=== PATIENT | female | born 1980 | race Caucasian/White ===

== ENCOUNTER 2016-08-19 23:39 | Emergency (ER) | payer MEDICARE, OTHER ==
[2016-08-19 23:48] VITALS: BP 106/55; PULSE 103; RESP 18; TEMP 97.3
[2016-08-20] MEDS ORDERED: Acetaminophen-Codeine 300-30mg TAB PO STA (00:19)
[2016-08-20] MEDS ORDERED: ORPHENADRINE 30 MG/ML 2 ML VIAL IM STA (00:19)
--- NOTE | 2016-08-20 00:22 | ED ---
General Adult HPI - General Chief complaint: Extremity Problem,Nontraumatic Stated complaint: shoulder/head pain Time Seen by Provider: 08/20/16 00:14 Source: patient, RN notes reviewed Mode of arrival: ambulatory Limitations: no limitations - History of Present Illness Initial comments: 36-year-old female presents emergency Department chief complaint left sided neck shoulder pain. Patient states this started 2 days ago. She states she has a history of this when she sleeps wrong. Patient denies any trauma. Patient states she woke up with. Patient denies any upper similar weakness, paresthesias. Denies any dizziness, blurred vision, nausea vomiting. Patient states she occasionally has a headache associated with it. Patient denies fever or chills. She states she has taken some [id number] ibuprofen no relief. Patient offers no other complaints. - Related Data Home Medications Medication Instructions Recorded Confirmed LORazepam [Ativan] 1 mg PO TID 01/12/14 08/05/16 Tetracycline 1,000 mg PO DAILY 12/27/15 08/05/16 Tretinoin [Tretinoin] 1 applic TOPICAL HS 12/28/15 08/05/16 Previous Rx's Medication Instructions Recorded Benztropine Mesylate [Cogentin] 0.5 mg PO BID #60 tab 01/04/16 Citalopram Hydrobromide [CeleXA] 20 mg PO DAILY 30 Days 01/04/16 Gabapentin [Neurontin] 300 mg PO TID #90 cap 01/04/16 fluPHENAZine [Prolixin] 20 mg PO HS #60 tab 01/04/16 traZODone HCL [Desyrel] 200 mg PO HS 1 Days 01/04/16 Cephalexin [Keflex] 500 mg PO Q6HR #40 cap 08/05/16 Sulfamethox-Tmp 800-160Mg [Bactrim 1 each PO Q12HR #20 tab 08/05/16 Ds] predniSONE 40 mg PO DAILY #8 tab 08/05/16 Acetaminophen-Codeine 300-30mg 1 tab PO Q4H PRN #20 tablet 08/20/16 [Tylenol #3] Cyclobenzaprine [Flexeril] 5 mg PO TID PRN #15 tablet 08/20/16 Allergies Allergy/AdvReac Type Severity Reaction Status Date / Time [place] Allergy Swelling Uncoded 08/05/16 01:08 Review of Systems ROS Statement: Those systems with pertinent positive or pertinent negative responses have been documented in the HPI. ROS Other: All systems not noted in ROS Statement are negative. 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 History of Any Multi-Drug Resistant Organisms: None Reported Past Surgical History: Appendectomy, Uterine Ablation Past Psychological History: Bipolar, Schizoaffective Disorder, Schizophrenia Smoking Status: Current every day smoker Past Alcohol Use History: None Reported Past Drug Use History: Marijuana General Exam Limitations: no limitations General appearance: alert, in no apparent distress Head exam: Present: atraumatic, normocephalic, normal inspection Eye exam: Present: normal appearance, PERRL, EOMI. Absent: scleral icterus, conjunctival injection, periorbital swelling ENT exam: Present: normal exam, normal oropharynx, mucous membranes moist, TM's normal bilaterally Neck exam: Present: normal inspection, tenderness (Mild tenderness of left cervical paraspinous, left trapezius region there is a muscle spasm noted), full ROM. Absent: meningismus, lymphadenopathy Respiratory exam: Present: normal lung sounds bilaterally. Absent: respiratory distress, wheezes, rales, rhonchi, stridor Cardiovascular Exam: Present: regular rate, normal rhythm, normal heart sounds. Absent: systolic murmur, diastolic murmur, rubs, gallop, clicks Neurological exam: Present: alert, oriented X3, CN II-XII intact, reflexes normal. Absent: motor sensory deficit Course Vital Signs 08/19/16 23:44 Temperature 97.3 F L Pulse Rate 103 H Respiratory 18 Rate Blood Pressure 106/55 O2 Sat by Pulse 96 Oximetry Medical Decision Making - Medical Decision Making 36-year-old female presented for left sided neck pain. Patient has left trapezius muscle spasms/strain. Patient has no neurological deficits. Patient we treated with muscle relaxer, pain medication. We did discuss stretching, heat and ice. Return parameters were discussed. Disposition Clinical Impression: Trapezius muscle spasm Disposition: HOME SELF-CARE Condition: Stable Instructions: Muscle Spasm (ED) Additional Instructions: Please return to the Emergency Department if symptoms worsen or any other concerns. Prescriptions: Acetaminophen-Codeine 300-30mg [Tylenol #3] 1 tab PO Q4H PRN #20 tablet PRN Reason: pain Cyclobenzaprine [Flexeril] 5 mg PO TID PRN #15 tablet PRN Reason: Muscle Spasm Time of Disposition: 00:22
== END 2016-08-20 00:34 | disposition home or self-care (01) ==
LOC: EC 23:39
DX: M62.838 Other muscle spasm (principal); R51 Headache; F17.200 Nicotine dependence, unspecified, uncomplicated; Z79.899 Other long term (current) drug therapy; Z79.2 Long term (current) use of antibiotics; Z91.048 Other nonmedicinal substance allergy status; X58.XXXA Exposure to other specified factors, initial encounter
CPT/HCPCS: 96372; 99283; J2360

== ENCOUNTER 2016-09-08 15:03 | Emergency (ER) | payer MEDICARE, OTHER ==
--- NOTE | 2016-09-08 17:08 | ED ---
General Adult HPI - General Chief complaint: Extremity Problem,Nontraumatic Stated complaint: Shoulder Pain Time Seen by Provider: 09/08/16 16:53 Source: patient, RN notes reviewed Mode of arrival: ambulatory Limitations: no limitations - History of Present Illness Initial comments: This is a 36-year-old female who presents with left shoulder pain 1 month. Patient states she thinks she slept on it wrong and remembers waking up with the pain about one month ago. Patient denies any known injury to the left shoulder. Patient does not have a job that requires repetitive motion of the left shoulder. Patient denies any numbness/tingling or weakness. Patient also admits to some mild neck pain that has been chronic for her. Patient also complains of left foot pain. Patient states his walking on ice last week and her foot is hurt ever since. Patient did not roll her ankle or fall onto her ankle. Patient also complains of a sore in the left ear that has been present for about a month as well. patient has been on one course of antibiotics for this. Patient denies any fever/chills, ear pain, nausea/vomiting/diarrhea, cough or congestion. Patient denies any chance of being . Patient denies any recent shortness breath, chest pain, abdominal pain, back pain, numbness, tingling, hematuria, headache, or visual changes, or any other complaints. - Related Data Home Medications Medication Instructions Recorded Confirmed LORazepam [Ativan] 1 mg PO TID 01/12/14 09/08/16 Tetracycline 1,000 mg PO DAILY 12/27/15 09/08/16 Previous Rx's Medication Instructions Recorded Benztropine Mesylate [Cogentin] 0.5 mg PO BID #60 tab 01/04/16 Citalopram Hydrobromide [CeleXA] 20 mg PO DAILY 30 Days 01/04/16 Gabapentin [Neurontin] 300 mg PO TID #90 cap 01/04/16 fluPHENAZine [Prolixin] 20 mg PO HS #60 tab 01/04/16 traZODone HCL [Desyrel] 200 mg PO HS 1 Days 01/04/16 Ciprofloxacin-Dexameth [Ciprodex 4 drops LEFT EAR BID 7 Days 09/08/16 Otic Susp] Cyclobenzaprine [Flexeril] 5 mg PO TID 3 Days 09/08/16 Allergies Allergy/AdvReac Type Severity Reaction Status Date / Time sulfamethoxazole Allergy Swelling Verified 09/08/16 17:12 [From Bactrim] trimethoprim [From Bactrim] Allergy Swelling Verified 09/08/16 17:12 cottonwood Allergy Swelling Uncoded 09/08/16 16:20 Review of Systems ROS Statement: Those systems with pertinent positive or pertinent negative responses have been documented in the HPI. ROS Other: All systems not noted in ROS Statement are negative. 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 History of Any Multi-Drug Resistant Organisms: None Reported Past Surgical History: Appendectomy, Uterine Ablation Past Psychological History: Bipolar, Schizoaffective Disorder, Schizophrenia Smoking Status: Current every day smoker Past Alcohol Use History: None Reported Past Drug Use History: Marijuana General Exam - General Exam Comments Initial Comments: General: The patient is awake and alert, in no distress, and does not appear acutely ill. Eye: Pupils are equal, round and reactive to light, extra-ocular movements are intact. No nystagmus. There is normal conjunctiva bilaterally. No signs of icterus. Ears: There is a small lump to the external ear canal that is non-erythematous, there is no purulent drainage or sign of abscess. This area is slightly tender to palpation. Normal external ear canal to the right ear. TMs pink and pearly with intact cone of light bilaterally. Nose: Nasal turbinates pink and moist Mouth and throat: There are moist mucous membranes and no oral lesions. Neck: There is some mild cervical midline tenderness and tenderness to the paraspinal muscles of the neck. The neck is supple, there is no JVD. Cardiovascular: There is a regular rate and rhythm. No murmur, rub or gallop is appreciated. Respiratory: Lungs are clear to auscultation, respirations are non-labored, breath sounds are equal. No wheezes, stridor, rales, or rhonchi. Musculoskeletal: There is tenderness to palpation over the posterior aspect of the left shoulder. Patient has no pain in the left shoulder with forced supination, Inocencio's test, with full flexion or with resisted external rotation. Patient is able to fully flex the left upper extremity. Patient has mild tenderness to the left foot with dorsiflexion. There is no swelling or ecchymosis. Patient has full range of motion ROM. Strength 5/5. Sensation intact. Radial pulses equal bilaterally 2+. Posterior tibial pulses 2+ bilaterally. Neurological: A&O x 3. CN II-XII intact, There are no obvious motor or sensory deficits. Coordination appears grossly intact. Speech is normal. Skin: Skin is warm and dry and no rashes or lesions are noted. Psychiatric: Cooperative, appropriate mood & affect, normal judgment. Limitations: no limitations Course Vital Signs 09/08/16 16:18 Temperature 98.0 F Pulse Rate 98 Respiratory 18 Rate Blood Pressure 126/88 O2 Sat by Pulse 97 Oximetry Medical Decision Making - Medical Decision Making This is a 36-year-old female who presents with left shoulder pain, left foot pain and a lump in the left ear. On physical exam patient has mild cervical midline tenderness. There is tenderness to palpation over the posterior aspect of the left shoulder. Patient has no pain in the left shoulder with forced supination, Inocencio's test, with full flexion or with resisted external rotation. Patient is able to fully flex the left upper extremity. Patient has mild tenderness to the left foot with dorsiflexion. There is no swelling or ecchymosis. Patient has full range of motion ROM. Strength 5/5. Sensation intact. Radial pulses equal bilaterally 2+. Posterior tibial pulses 2+ bilaterally. There is a small lump to the external ear canal there is an erythematous, there is no purulent drainage or sign of abscess. An x-ray of the cervical spine, left shoulder and left foot were done and reviewed showing: X-ray left shoulder: No acute process. The report read by Dr. Hills. X-ray cervical spine: There is no fracture or malalignment. C -spine straightening noted. Reported by Dr. Hills. X-ray foot left: No acute processes. Reportedly Dr. Hills I discussed the patient will be put on Ciprodex ear drops for the lump in the left ear. Patient denies any ear pain. Discussed warm heating pads to the neck. I discussed [id number] Tylenol as needed for any pain. Patient is unable to take Motrin. Patient was given a dose of Norflex in the EC today. I discussed the patient will be given a short prescription for Flexeril. I discussed sedation effects. I discussed rest, ice, elevate and perform range of motion exercises to the left foot. I discussed return parameters. Discussed close follow-up the patient's primary care physician or to return to the [facility] for any worsening symptoms or for any further concerns. Patient was receptive to this plan a patient will be discharged home. Disposition Clinical Impression: Cervical strain, Lump of ear, Foot sprain Disposition: HOME SELF-CARE Condition: Good Instructions: Cervical Strain (ED) Additional Instructions: Please use warm heating pad to the neck. Please use Flexeril as prescribed. Please be aware that this medication may make you drowsy and please do not drink alcohol or drive while using this medication. Please rest, ice, elevate the left foot and perform range of motion exercises to left ankle. Please use ear drops as prescribed. Please follow-up with primary care physician in one to 2 days or return to the [facility] for any worsening symptoms or for any further concerns. Prescriptions: Ciprofloxacin-Dexameth [Ciprodex Otic Susp] 4 drops LEFT EAR BID 7 Days Cyclobenzaprine [Flexeril] 5 mg PO TID 3 Days Referrals: Ranjeet Medina MD [Primary Care Provider] - 1-2 days Time of Disposition: 18:21
--- NOTE | 2016-09-08 18:15 | XR ---
EXAMINATION TYPE: XR shoulder complete LT DATE OF EXAM: 09/08/2016 5:37 PM COMPARISON: NONE HISTORY: Pain TECHNIQUE: Views FINDINGS: Bones and joints and soft tissues are unremarkable. IMPRESSION: No acute process.
--- NOTE | 2016-09-08 18:16 | XR ---
EXAMINATION TYPE: XR cervical spine comp DATE OF EXAM: 09/08/2016 5:37 PM COMPARISON: NONE HISTORY: Pain TECHNIQUE: 5 views FINDINGS: There is no fracture or malalignment. Bones and joints and soft tissues are unremarkable ex cept for cervical spine straightening. IMPRESSION: Spine straightening noted.
--- NOTE | 2016-09-08 18:17 | XR ---
EXAMINATION TYPE: XR foot complete LT DATE OF EXAM: 09/08/2016 5:37 PM COMPARISON: NONE HISTORY: Pain TECHNIQUE: 3 views FINDINGS: Bones and joints and soft tissues are unremarkable. IMPRESSION: No acute process.
[2016-09-08] MEDS: ORPHENADRINE 30 MG/ML 2 ML VIAL IM STA (18:18)
[2016-09-08 18:29] VITALS: BP 130/87; PULSE 100; RESP 16; TEMP 98.3
== END 2016-09-08 18:28 | disposition home or self-care (01) ==
LOC: EC 15:03
DX: S16.1XXA Strain of muscle, fascia and tendon at neck level, initial encounter (principal); S93.602A Unspecified sprain of left foot, initial encounter; H93.8X2 Other specified disorders of left ear; F20.9 Schizophrenia, unspecified; F17.200 Nicotine dependence, unspecified, uncomplicated; Z79.899 Other long term (current) drug therapy; Z88.2 Allergy status to sulfonamides; Z91.048 Other nonmedicinal substance allergy status; X58.XXXA Exposure to other specified factors, initial encounter
CPT/HCPCS: 99283; 96372; 72050; 73030; 73630; J2360

== ENCOUNTER 2016-09-15 19:26 | Emergency (ER) | payer MEDICARE, OTHER ==
[2016-09-15 19:32] VITALS: BP 107/64; RESP 20; TEMP 98.8
[2016-09-15] MEDS ORDERED: IPRATROPIUM-ALBUTEROL 3 ML NEB INHALATION STA (19:40)
[2016-09-15] MEDS ORDERED: IBUPROFEN 600 MG TAB PO STA (19:41)
--- NOTE | 2016-09-15 19:55 | ED ---
URI HPI - General Chief Complaint: Upper Respiratory Infection Stated Complaint: Severe Migraine/Chest Pain/ENT/Shoulders hurt Time Seen by Provider: 09/15/16 19:32 Source: patient, RN notes reviewed Mode of arrival: wheelchair Limitations: no limitations - History of Present Illness Initial Comments: Patient is a 36-year-old female presents to emergency room for multiple complaints. Patient states she's been having sinus congestion, throat pain, ear pain, all of her body aches and a productive cough for the past day. Patient states that these symptoms on and off for the past few months. Patient states the symptoms are worse then what they have been in the past. Patient states that in body aches is radiating up into her neck causing her to have headache. Patient states she took muscle relaxers before arrival was slight relief of symptoms. Patient states she's been having on and off chills and hot flashes. Patient states she is up-to-date on her immunizations. Patient states she thinks she received her influenza vaccine this year. Patient states she's been coughing up yellow/green mucus. Patient denies shortness of breath. Patient does admit to smoking about a pack per day. Patient denies history of asthma. Patient's denies chest pain, abdominal pain, nausea vomiting. Patient denies changes in vision. Patient denies dizziness. - Related Data Home Medications Medication Instructions Recorded Confirmed LORazepam [Ativan] 1 mg PO TID 01/12/14 09/15/16 Tetracycline 1,000 mg PO DAILY 12/27/15 09/15/16 Previous Rx's Medication Instructions Recorded Benztropine Mesylate [Cogentin] 0.5 mg PO BID #60 tab 01/04/16 Citalopram Hydrobromide [CeleXA] 20 mg PO DAILY 30 Days 01/04/16 Gabapentin [Neurontin] 300 mg PO TID #90 cap 01/04/16 fluPHENAZine [Prolixin] 20 mg PO HS #60 tab 01/04/16 traZODone HCL [Desyrel] 200 mg PO HS 1 Days 01/04/16 Cyclobenzaprine [Flexeril] 5 mg PO TID 3 Days 09/08/16 Albuterol Inhaler [Ventolin Hfa 1 - 2 puff INHALATION Q6HR PRN #1 09/15/16 Inhaler] inhaler Cyclobenzaprine [Flexeril] 10 mg PO TID PRN #12 tablet 09/15/16 predniSONE 20 mg PO DAILY #5 tab 09/15/16 Allergies Allergy/AdvReac Type Severity Reaction Status Date / Time sulfamethoxazole Allergy Swelling Verified 09/15/16 19:47 [From Bactrim] trimethoprim [From Bactrim] Allergy Swelling Verified 09/15/16 19:47 [place]wood Allergy Swelling Uncoded 09/15/16 19:31 Review of Systems ROS Statement: Those systems with pertinent positive or pertinent negative responses have been documented in the HPI. ROS Other: All systems not noted in ROS Statement are negative. 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 History of Any Multi-Drug Resistant Organisms: None Reported Past Surgical History: Appendectomy, Uterine Ablation Past Psychological History: Bipolar, Schizoaffective Disorder, Schizophrenia Smoking Status: Current every day smoker Past Alcohol Use History: None Reported Past Drug Use History: Marijuana General Exam - General Exam Comments Initial Comments: Sitting in exam room, tearful during exam. Limitations: no limitations General appearance: alert, in no apparent distress Head exam: Present: atraumatic, normocephalic, normal inspection Eye exam: Present: normal appearance, PERRL, EOMI Pupils: Present: normal accommodation ENT exam: Present: normal exam, normal oropharynx, mucous membranes moist, TM's normal bilaterally, normal external ear exam Neck exam: Present: normal inspection, full ROM. Absent: tenderness, lymphadenopathy Respiratory exam: Present: normal lung sounds bilaterally. Absent: respiratory distress Cardiovascular Exam: Present: normal rhythm, tachycardia, normal heart sounds Extremities exam: Present: normal inspection Back exam: Present: normal inspection Neurological exam: Present: alert, oriented X3, CN II-XII intact, normal gait Psychiatric exam: Present: normal affect, normal mood Skin exam: Present: warm, dry, intact, normal color. Absent: rash Course Vital Signs 09/15/16 09/15/16 09/15/16 19:29 19:58 20:15 Temperature 98.8 F Pulse Rate 118 H 82 82 Respiratory 20 Rate Blood Pressure 107/64 O2 Sat by Pulse 99 Oximetry Medical Decision Making - Medical Decision Making Patient is a 36-year-old female presents emergency room for evaluation of cough , congestion and body aches. Rapid influenza negative. Chest x-ray shows no signs of pneumonia. Will treat patient for bronchitis. Patient states she understands everything that was discussed with her. Return parameters discussed. Case discussed with Dr. Mon. - Lab Data Lab Results 09/15/16 Range/Units 19:30 Influenza Type A RNA Not Detected (Not Detectd) Influenza Type B (PCR) Not Detected (Not Detectd) - Radiology Data Radiology results: report reviewed, image reviewed Disposition Clinical Impression: Bronchitis Disposition: HOME SELF-CARE Condition: Good Instructions: Acute Bronchitis (ED) Additional Instructions: Take medications as directed. Take Tylenol as needed for body aches. Please follow up with primary care provider in 1-2 days. If any new symptom arises or symptoms worsen, return to ER as soon as possible. Prescriptions: Albuterol Inhaler [Ventolin Hfa Inhaler] 1 - 2 puff INHALATION Q6HR PRN #1 inhaler PRN Reason: Shortness Of Breath Cyclobenzaprine [Flexeril] 10 mg PO TID PRN #12 tablet PRN Reason: Pain predniSONE 20 mg PO DAILY #5 tab Referrals: Ranjeet Medina MD [Primary Care Provider] - 1-2 days Time of Disposition: 20:19
[2016-09-15] MEDS ORDERED: ACETAMINOPHEN TAB 325 MG TAB PO STA (19:56)
[2016-09-15 20:01] VITALS: PULSE 82
--- NOTE | 2016-09-15 20:13 | XR ---
EXAMINATION TYPE: XR chest 1V DATE OF EXAM: 09/15/2016 8:05 PM COMPARISON: NONE HISTORY: Throat pain and neck pain TECHNIQUE: Single frontal view of the chest is obtained. FINDINGS: Heart and mediastinum are normal. The lungs are clear. Costophrenic angles are clear. Ther e are no hilar masses. Bony thorax is intact. IMPRESSION: Normal chest.
== END 2016-09-15 20:25 | disposition home or self-care (01) ==
LOC: EC 19:26
DX: J40 Bronchitis, not specified as acute or chronic (principal); Z79.899 Other long term (current) drug therapy; Z88.1 Allergy status to other antibiotic agents; Z88.2 Allergy status to sulfonamides; F17.200 Nicotine dependence, unspecified, uncomplicated; F20.9 Schizophrenia, unspecified
CPT/HCPCS: 71010; 87502; 94640; 99284

== ENCOUNTER 2017-01-02 02:52 | Emergency (ER) | payer MEDICARE, OTHER ==
[2017-01-02] MEDS ORDERED: SODIUM CHLORIDE 0.9% 1,000 ML IV ONE (03:23)
[2017-01-02] MEDS ORDERED: ACETAMINOPHEN TAB 325 MG TAB PO STA (03:23)
[2017-01-02 03:28] LABS: Appearance,Urine Clear (Clear); Bilirubin,Urine Negative (Negative); Glucose,Urine (UA) Negative (Negative); Ketones,Urine Negative (Negative); Leukocyte Esterase,Urine Negative (Negative); Nitrite,Urine Negative (Negative); PH, Urine 5.5 (5.0-8.0); Protein,Urine Negative (Negative); Specific Gravity,Urine 1.006 (1.001-1.035); UA Billing (MACRO vs. MICRO) CHEM; Urobilinogen,Urine <2.0 mg/dL (<2.0)
[2017-01-02 03:41] LABS: CHCM 33.5; HCT 46.1 % (34.0-46.0); HDW 1.99; HGB 15.2 gm/dL (11.4-16.0); MCH 30.6 pg (25.0-35.0); MCHC 32.9 g/dL (31.0-37.0); MCV 92.9 fL (80.0-100.0); Mean Platelet Volume 7.9; RBC 4.96 m/uL (3.80-5.40); WBC (Perox) 24.63
[2017-01-02 03:48] LABS: WBC 26.1 k/uL (3.8-10.6)
[2017-01-02 03:55] LABS: ALT 32 U/L (9-52); AST 21 U/L (14-36); Alkaline Phosphatase 79 U/L (38-126); Anion Gap 11 mmol/L; Blood Urea Nitrogen 13 mg/dL (7-17); Calcium 9.1 mg/dL (8.4-10.2); Carbon Dioxide 19 mmol/L (22-30); Chloride 110 mmol/L (98-107); Glucose 106 mg/dL (74-99); Non-African American GFR(MDRD) >60 (>60 ml/min/1.73 sqM); Potassium 4.4 mmol/L (3.5-5.1); Sodium 140 mmol/L (137-145); Total Bilirubin 0.6 mg/dL (0.2-1.3); Total Protein 6.8 g/dL (6.3-8.2)
--- NOTE | 2017-01-02 04:10 | ED ---
Back Pain HPI - General Chief Complaint: Back Pain/Injury Stated Complaint: Back Pain Time Seen by Provider: 01/02/17 03:16 Source: patient, family Limitations: no limitations - History of Present Illness MD Complaint: back pain -: days(s) Similar Symptoms Previously: Yes Place: home Radiation: none Severity: severe Quality: aching Consistency: constant Improves With: none Worsens With: none Associated Symptoms: fever/chills - Related Data Home Medications Medication Instructions Recorded Confirmed LORazepam [Ativan] 1 mg PO TID 01/12/14 01/02/17 Tetracycline 1,000 mg PO DAILY 12/27/15 01/02/17 Previous Rx's Medication Instructions Recorded Benztropine Mesylate [Cogentin] 0.5 mg PO BID #60 tab 01/04/16 Citalopram Hydrobromide [CeleXA] 20 mg PO DAILY 30 Days 01/04/16 Gabapentin [Neurontin] 300 mg PO TID #90 cap 01/04/16 fluPHENAZine [Prolixin] 20 mg PO HS #60 tab 01/04/16 traZODone HCL [Desyrel] 200 mg PO HS 1 Days 01/04/16 Cyclobenzaprine [Flexeril] 5 mg PO TID 3 Days 09/08/16 Albuterol Inhaler [Ventolin Hfa 1 - 2 puff INHALATION Q6HR PRN #1 09/15/16 Inhaler] inhaler Cyclobenzaprine [Flexeril] 10 mg PO TID PRN #12 tablet 09/15/16 predniSONE 20 mg PO DAILY #5 tab 09/15/16 Azithromycin [Zithromax Z-pack] 250 mg PO DIRECTED #6 tab 01/02/17 Allergies Allergy/AdvReac Type Severity Reaction Status Date / Time sulfamethoxazole Allergy Swelling Verified 01/02/17 03:03 [From Bactrim] trimethoprim [From Bactrim] Allergy Swelling Verified 01/02/17 03:03 cottonwood Allergy Swelling Uncoded 01/02/17 03:03 Review of Systems ROS Statement: Those systems with pertinent positive or pertinent negative responses have been documented in the HPI. ROS Other: All systems not noted in ROS Statement are negative. Constitutional: Reports: fever. 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 Absent: scleral icterus, conjunctival injection ENT exam: Present: normal oropharynx Respiratory exam: Present: normal lung sounds bilaterally. Absent: respiratory distress, wheezes, rales, rhonchi, stridor Cardiovascular Exam: Present: normal rhythm, tachycardia, normal heart sounds. Absent: systolic murmur, diastolic murmur, rubs, gallop GI/Abdominal exam: Present: soft. Absent: distended, tenderness, guarding, rebound, mass Extremities exam: Present: normal inspection, normal capillary refill. Absent: pedal edema, calf tenderness Back exam: Present: normal inspection, paraspinal tenderness. Absent: CVA tenderness (R), CVA tenderness (L) Neurological exam: Present: alert, reflexes normal. Absent: motor sensory deficit Skin exam: Present: warm, dry, intact, normal color. Absent: rash, cyanosis, diaphoretic, erythema, petechiae, pallor, mottled Course Vital Signs 01/02/17 01/02/17 01/02/17 03:00 05:00 06:22 Temperature 100.8 F H 98.0 F Pulse Rate 120 H 70 70 Respiratory 20 16 16 Rate Blood Pressure 112/69 109/59 117/81 O2 Sat by Pulse 97 Oximetry Medical Decision Making - Lab Data Result diagrams: 01/02/17 03:25 01/02/17 03:25 Lab Results 01/02/17 01/02/17 01/02/17 Range/Units 03:22 03:22 03:25 WBC 26.1 H* (3.8-10.6) k/uL RBC 4.96 (3.80-5.40) m/uL Hgb 15.2 (11.4-16.0) gm/dL Hct 46.1 H (34.0-46.0) % MCV 92.9 (80.0-100.0) fL MCH 30.6 (25.0-35.0) pg MCHC 32.9 (31.0-37.0) g/dL RDW 13.0 (11.5-15.5) % Plt Count 205 (150-450) k/uL Neutrophils % (Manual) 75.0 % Lymphocytes % (Manual) 12.0 % Monocytes % (Manual) 13.0 % Neutrophils # (Manual) 19.6 H (1.3-7.7) k/uL Lymphocytes # (Manual) 3.1 (1.0-4.8) k/uL Monocytes # (Manual) 3.4 H (0-1.0) k/uL Nucleated RBCs 0 (0-0) /100 WBC Manual Slide Review Performed Sodium (137-145) mmol/L Potassium (3.5-5.1) mmol/L Chloride (98-107) mmol/L Carbon Dioxide (22-30) mmol/L Anion Gap mmol/L BUN (7-17) mg/dL Creatinine (0.52-1.04) mg/dL Est GFR (MDRD) Af Amer (>60 ml/min/1.73 sqM) Est GFR (MDRD) Non-Af (>60 ml/min/1.73 sqM) Glucose (74-99) mg/dL Plasma Lactic Acid Newton (0.7-2.0) mmol/L Calcium (8.4-10.2) mg/dL Total Bilirubin (0.2-1.3) mg/dL AST (14-36) U/L ALT (9-52) U/L Alkaline Phosphatase (38-126) U/L Total Protein (6.3-8.2) g/dL Albumin (3.5-5.0) g/dL Urine Color Yellow Urine Appearance Clear (Clear) Urine pH 5.5 (5.0-8.0) Ur Specific Talent 1.006 (1.001-1.035) Urine Protein Negative (Negative) Urine Glucose (UA) Negative (Negative) Urine Ketones Negative (Negative) Urine Blood Negative (Negative) Urine Nitrite Negative (Negative) Urine Bilirubin Negative (Negative) Urine Urobilinogen <2.0 (<2.0) mg/dL Ur Leukocyte Esterase Negative (Negative) Urine HCG, Qual Not Detected (Not Detectd) 01/02/17 01/02/17 Range/Units 03:25 03:25 WBC (3.8-10.6) k/uL RBC (3.80-5.40) m/uL Hgb (11.4-16.0) gm/dL Hct (34.0-46.0) % MCV (80.0-100.0) fL MCH (25.0-35.0) pg MCHC (31.0-37.0) g/dL RDW (11.5-15.5) % Plt Count (150-450) k/uL Neutrophils % (Manual) % Lymphocytes % (Manual) % Monocytes % (Manual) % Neutrophils # (Manual) (1.3-7.7) k/uL Lymphocytes # (Manual) (1.0-4.8) k/uL Monocytes # (Manual) (0-1.0) k/uL Nucleated RBCs (0-0) /100 WBC Manual Slide Review Sodium 140 (137-145) mmol/L Potassium 4.4 (3.5-5.1) mmol/L Chloride 110 H (98-107) mmol/L Carbon Dioxide 19 L (22-30) mmol/L Anion Gap 11 mmol/L BUN 13 (7-17) mg/dL Creatinine 0.70 (0.52-1.04) mg/dL Est GFR (MDRD) Af Amer >60 (>60 ml/min/1.73 sqM) Est GFR (MDRD) Non-Af >60 (>60 ml/min/1.73 sqM) Glucose 106 H (74-99) mg/dL Plasma Lactic Acid Newton 0.9 (0.7-2.0) mmol/L Calcium 9.1 (8.4-10.2) mg/dL Total Bilirubin 0.6 (0.2-1.3) mg/dL AST 21 (14-36) U/L ALT 32 (9-52) U/L Alkaline Phosphatase 79 (38-126) U/L Total Protein 6.8 (6.3-8.2) g/dL Albumin 4.0 (3.5-5.0) g/dL Urine Color Urine Appearance (Clear) Urine pH (5.0-8.0) Ur Specific Talent (1.001-1.035) Urine Protein (Negative) Urine Glucose (UA) (Negative) Urine Ketones (Negative) Urine Blood (Negative) Urine Nitrite (Negative) Urine Bilirubin (Negative) Urine Urobilinogen (<2.0) mg/dL Ur Leukocyte Esterase (Negative) Urine HCG, Qual (Not Detectd) Disposition Clinical Impression: Pneumonia Disposition: HOME SELF-CARE Condition: Fair Instructions: Pneumonia (ED) Prescriptions: Azithromycin [Zithromax Z-pack] 250 mg PO DIRECTED #6 tab Referrals: Ranjeet Medina MD [Primary Care Provider] - 1-2 days
[2017-01-02 04:23] LABS: Add Differential Manual Differential
[2017-01-02 04:24] LABS: Manual Review Performed; Nucleated Red Blood Cells 0 /100 WBC (0-0); Total Cells Counted 100
--- NOTE | 2017-01-02 04:50 | XR ---
EXAM: XR Chest, 2 Views CLINICAL HISTORY: Reason: fever TECHNIQUE: Frontal and lateral views of the chest. COMPARISON: No relevant prior studies available. FINDINGS: Lungs: Subtle left suprahilar opacity which may reflect early infiltrate. Pleural space: Unremarkable. No pneumothorax. Heart: Unremarkable. No cardiomegaly. Mediastinum: Unremarkable. Bones/joints: Mild degenerative changes in the thoracic spine IMPRESSION: Query early left suprahilar infiltrate. Follow-up recommended. No effusion
[2017-01-02] MEDS ORDERED: MORPHINE SULFATE 4 MG/ML SYRINGE IV STA (05:09)
[2017-01-02 07:31] VITALS: BP 121/72; PULSE 73; RESP 18; TEMP 98.8
== END 2017-01-02 07:30 | disposition home or self-care (01) ==
LOC: EC 02:52
DX: J18.9 Pneumonia, unspecified organism (principal); F25.9 Schizoaffective disorder, unspecified; F31.9 Bipolar disorder, unspecified; F17.200 Nicotine dependence, unspecified, uncomplicated; Z79.899 Other long term (current) drug therapy; Z88.2 Allergy status to sulfonamides
CPT/HCPCS: 99283; 96365; 96366 ×3; 96375; 36415; 80053; 83605; 85025; 81003; 81025; 80306; 71020; J2270; J0696

== ENCOUNTER 2017-02-28 20:17 | Emergency (ER) | payer MEDICARE, OTHER ==
[2017-02-28 20:26] VITALS: RESP 18
[2017-02-28] MEDS: SODIUM CHLORIDE 0.9% 500 ML IV SCH ×2 (21:06→23:33)
[2017-02-28] MEDS ORDERED: ACETAMINOPHEN TAB 325 MG TAB PO STA (21:06)
--- NOTE | 2017-02-28 21:22 | ED ---
General Adult HPI <Doc Vasquez - Last Filed: 02/28/17 23:58> - General Source: patient, RN notes reviewed Mode of arrival: ambulatory Limitations: no limitations <Erum Palencia - Last Filed: 03/01/17 04:22> - General Chief complaint: Skin/Abscess/Foreign Body Stated complaint: back pain/female Time Seen by Provider: 02/28/17 20:49 - History of Present Illness Initial comments: Patient is a 36-year-old female since emergency room for evaluation. Patient has multiple complaints. Patient states she's noticed a lump over her vaginal area for the past 4 months. Patient states she's been unable to get evaluated until now. Patient denies any significant pain on palpating over the lump. Patient denies any redness or swelling. Patient states she noticed the lump get larger over the past 4 months. Patient denies any drainage from the area. Patient also states that she is having worsening low back pain. Patient states she has a history of low back pain. Patient states that she has been taking more of her pain medications than prescribed and has ran out because of the pain. Patient states that in bilateral flank/low back pain. Patient states that she had a fever on arrival today. Patient denies headache or dizziness. Patient denies nausea or vomiting. Patient denies abdominal pain. Patient denies burning during urination. Patient denies any history of kidney stones. Patient denies any recent injury or trauma to her back. (Erum Palencia) - Related Data Home Medications Medication Instructions Recorded Confirmed LORazepam [Ativan] 1 mg PO TID 01/12/14 02/28/17 Tetracycline 1,000 mg PO DAILY 12/27/15 02/28/17 Albuterol Inhaler [Ventolin Hfa 1 - 2 puff INHALATION RT-Q6H PRN 02/28/17 Inhaler] Previous Rx's Medication Instructions Recorded Benztropine Mesylate [Cogentin] 0.5 mg PO BID #60 tab 01/04/16 Gabapentin [Neurontin] 300 mg PO TID #90 cap 01/04/16 fluPHENAZine [Prolixin] 20 mg PO HS #60 tab 01/04/16 traZODone HCL [Desyrel] 200 mg PO HS 1 Days 01/04/16 Allergies Allergy/AdvReac Type Severity Reaction Status Date / Time sulfamethoxazole Allergy Swelling Verified 02/28/17 20:58 [From Bactrim] trimethoprim [From Bactrim] Allergy Swelling Verified 02/28/17 20:58 cottonwood Allergy Swelling Uncoded 02/28/17 20:26 Review of Systems ROS Other: All systems not noted in ROS Statement are negative. <Doc Vasquez - Last Filed: 02/28/17 23:58> ROS Other: All systems not noted in ROS Statement are negative. <Erum Palencia - Last Filed: 03/01/17 04:22> ROS Statement: Those systems with pertinent positive or pertinent negative responses have been documented in the HPI. 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, no active infection that she is aware of, frequent abcess on external vagina History of Any Multi-Drug Resistant Organisms: None Reported Past Surgical History: Appendectomy, Uterine Ablation Additional Past Surgical History / Comment(s): LEAP about 8yr ago Past Psychological History: Anxiety, Bipolar, Schizoaffective Disorder, Schizophrenia Smoking Status: Current every day smoker Past Alcohol Use History: Occasional Past Drug Use History: Marijuana, Opiates <Erum Palencia - Last Filed: 03/01/17 04:22> General Exam <Doc Vasquez - Last Filed: 02/28/17 23:58> Limitations: no limitations General appearance: alert, in no apparent distress Head exam: Present: atraumatic, normocephalic, normal inspection Eye exam: Present: normal appearance ENT exam: Present: normal exam Neck exam: Present: normal inspection Respiratory exam: Present: normal lung sounds bilaterally. Absent: respiratory distress Cardiovascular Exam: Present: normal rhythm, tachycardia, normal heart sounds GI/Abdominal exam: Present: soft, normal bowel sounds. Absent: distended, tenderness, guarding, rebound, rigid External exam: Present: other (Small pea sized nodule palpated over left groin/ outer labia. No swelling or tenderness on palpation. No urinary erythema. No signs of infection.) Extremities exam: Present: normal inspection Back exam: Present: normal inspection Neurological exam: Present: alert, oriented X3, CN II-XII intact, normal gait Psychiatric exam: Present: normal affect, normal mood Skin exam: Present: warm, dry, intact, normal color. Absent: rash <Erum Palencia - Last Filed: 03/01/17 04:22> - General Exam Comments Initial Comments: sitting in exam room, no acute distress. (Erum Palencia) Medical Decision Making - Lab Data Result diagrams: 02/28/17 21:19 02/28/17 21:19 <Doc Vasquez - Last Filed: 02/28/17 23:58> - Lab Data Result diagrams: 02/28/17 21:19 02/28/17 21:19 - Radiology Data Radiology results: report reviewed, image reviewed <Erum Palencia - Last Filed: 03/01/17 04:22> - Medical Decision Making Patient was reexamined by myself, Dr. Vasquez. Patient resting comfortably in bed. Patient does admit to having some back discomfort. Back is nontender. Abdomen is soft and nontender. Patient states there is a left groin lump that she has noticed for months. Physician orthodontic assistant Erum present during exam. Patient does have a tiny nodule lateral to the labia deep subcu. Patient is advised to follow-up with [facility] for this. Patient does request discharge. Patient is advised to follow-up with her primary care physician this week. ( Doc Vasquez) Patient is a 36-year-old female presents to the emergency room for evaluation of back pain and lump over her vaginal area. There is a small nodule noted in left groin. There is no signs of infection, redness or drainage. Advised patient to follow-up with [facility] for further evaluation. Patient does state she has chronic back pain. Patient noted to have fever. WBC elevated. No significant findings to account for fever. Patient does state that she would like to be discharged. Patient advised to follow-up with primary care provider. (Erum Palencia) - Lab Data Lab Results 02/28/17 02/28/17 02/28/17 Range/Units 21:19 21:19 21:19 WBC 16.5 H (3.8-10.6) k/uL RBC 4.74 (3.80-5.40) m/uL Hgb 15.1 (11.4-16.0) gm/dL Hct 43.8 (34.0-46.0) % MCV 92.3 (80.0-100.0) fL MCH 31.9 (25.0-35.0) pg MCHC 34.6 (31.0-37.0) g/dL RDW 13.8 (11.5-15.5) % Plt Count 207 (150-450) k/uL Neutrophils % 75 % Lymphocytes % 19 % Monocytes % 4 % Eosinophils % 0 % Basophils % 0 % Neutrophils # 12.4 H (1.3-7.7) k/uL Lymphocytes # 3.2 (1.0-4.8) k/uL Monocytes # 0.7 (0-1.0) k/uL Eosinophils # 0.1 (0-0.7) k/uL Basophils # 0.1 (0-0.2) k/uL PT (9.0-12.0) sec INR (<1.2) APTT (22.0-30.0) sec Sodium 137 (137-145) mmol/L Potassium 4.2 (3.5-5.1) mmol/L Chloride 104 (98-107) mmol/L Carbon Dioxide 22 (22-30) mmol/L Anion Gap 11 mmol/L BUN 9 (7-17) mg/dL Creatinine 0.70 (0.52-1.04) mg/dL Est GFR (MDRD) Af Amer >60 (>60 ml/min/1.73 sqM) Est GFR (MDRD) Non-Af >60 (>60 ml/min/1.73 sqM) Glucose 109 H (74-99) mg/dL Plasma Lactic Acid Newton 1.3 (0.7-2.0) mmol/L Calcium 9.5 (8.4-10.2) mg/dL Total Bilirubin 0.7 (0.2-1.3) mg/dL AST 18 (14-36) U/L ALT 31 (9-52) U/L Alkaline Phosphatase 74 (38-126) U/L Total Protein 6.9 (6.3-8.2) g/dL Albumin 4.1 (3.5-5.0) g/dL Urine Color Urine Appearance (Clear) Urine pH (5.0-8.0) Ur Specific Crump (1.001-1.035) Urine Protein (Negative) Urine Glucose (UA) (Negative) Urine Ketones (Negative) Urine Blood (Negative) Urine Nitrite (Negative) Urine Bilirubin (Negative) Urine Urobilinogen (<2.0) mg/dL Ur Leukocyte Esterase (Negative) 02/28/17 02/28/17 Range/Units 21:19 21:19 WBC (3.8-10.6) k/uL RBC (3.80-5.40) m/uL Hgb (11.4-16.0) gm/dL Hct (34.0-46.0) % MCV (80.0-100.0) fL MCH (25.0-35.0) pg MCHC (31.0-37.0) g/dL RDW (11.5-15.5) % Plt Count (150-450) k/uL Neutrophils % % Lymphocytes % % Monocytes % % Eosinophils % % Basophils % % Neutrophils # (1.3-7.7) k/uL Lymphocytes # (1.0-4.8) k/uL Monocytes # (0-1.0) k/uL Eosinophils # (0-0.7) k/uL Basophils # (0-0.2) k/uL PT 10.3 (9.0-12.0) sec INR 1.0 (<1.2) APTT 24.2 (22.0-30.0) sec Sodium (137-145) mmol/L Potassium (3.5-5.1) mmol/L Chloride (98-107) mmol/L Carbon Dioxide (22-30) mmol/L Anion Gap mmol/L BUN (7-17) mg/dL Creatinine (0.52-1.04) mg/dL Est GFR (MDRD) Af Amer (>60 ml/min/1.73 sqM) Est GFR (MDRD) Non-Af (>60 ml/min/1.73 sqM) Glucose (74-99) mg/dL Plasma Lactic Acid Newton (0.7-2.0) mmol/L Calcium (8.4-10.2) mg/dL Total Bilirubin (0.2-1.3) mg/dL AST (14-36) U/L ALT (9-52) U/L Alkaline Phosphatase (38-126) U/L Total Protein (6.3-8.2) g/dL Albumin (3.5-5.0) g/dL Urine Color Light Yellow Urine Appearance Clear (Clear) Urine pH 5.5 (5.0-8.0) Ur Specific Crump 1.001 (1.001-1.035) Urine Protein Negative (Negative) Urine Glucose (UA) Negative (Negative) Urine Ketones Negative (Negative) Urine Blood Negative (Negative) Urine Nitrite Negative (Negative) Urine Bilirubin Negative (Negative) Urine Urobilinogen <2.0 (<2.0) mg/dL Ur Leukocyte Esterase Negative (Negative) Disposition <Doc Vasquez - Last Filed: 02/28/17 23:58> Time of Disposition: 23:54 <Erum Palencia - Last Filed: 03/01/17 04:22> Clinical Impression: Low back pain, Fever, Lump in the groin Disposition: HOME SELF-CARE Condition: Good Instructions: Fever in Adults (ED), Acute Low Back Pain (ED) Additional Instructions: Alternate Tylenol and Motrin for fever. Please follow-up with [facility] regarding lump over left groin area. Please follow up with primary care provider in 1-2 days. If any new symptom arises or symptoms worsen, return to ER as soon as possible. Referrals: Ranjeet Medina MD [Primary Care Provider] - 1-2 days Jennifer Billy DO [Doctor of Osteopathic Medicine] - 1-2 days
[2017-02-28 21:38] LABS: Appearance,Urine Clear (Clear); Bilirubin,Urine Negative (Negative); Glucose,Urine (UA) Negative (Negative); Ketones,Urine Negative (Negative); Leukocyte Esterase,Urine Negative (Negative); Nitrite,Urine Negative (Negative); PH, Urine 5.5 (5.0-8.0); Protein,Urine Negative (Negative); Specific Gravity,Urine 1.001 (1.001-1.035); UA Billing (MACRO vs. MICRO) CHEM; Urobilinogen,Urine <2.0 mg/dL (<2.0)
[2017-02-28 21:40] LABS: Basophils # (A) 0.1 k/uL (0-0.2); Basophils % (A) 0 %; CH 31.6; CHCM 34.4; Eosinophils # (A) 0.1 k/uL (0-0.7); Eosinophils % (A) 0 %; HCT 43.8 % (34.0-46.0); HDW 2.09; HGB 15.1 gm/dL (11.4-16.0); Luc # (Auto) 0.17; Luc % (Auto) 1; Lymphocytes # (A) 3.2 k/uL (1.0-4.8); Lymphocytes % (A) 19 %; MCH 31.9 pg (25.0-35.0); MCHC 34.6 g/dL (31.0-37.0); MCV 92.3 fL (80.0-100.0); Mean Platelet Volume 8.7; Monocytes # (A) 0.7 k/uL (0-1.0); Monocytes % (A) 4 %; Neutrophils # (A) 12.4 k/uL (1.3-7.7); Neutrophils % (A) 75 %; RBC 4.74 m/uL (3.80-5.40); RDW 13.8 % (11.5-15.5); WBC 16.5 k/uL (3.8-10.6); WBC (Perox) 15.56
[2017-02-28 21:44] LABS: ALT 31 U/L (9-52); AST 18 U/L (14-36); Alkaline Phosphatase 74 U/L (38-126); Anion Gap 11 mmol/L; Blood Urea Nitrogen 9 mg/dL (7-17); Calcium 9.5 mg/dL (8.4-10.2); Carbon Dioxide 22 mmol/L (22-30); Chloride 104 mmol/L (98-107); Glucose 109 mg/dL (74-99); Non-African American GFR(MDRD) >60 (>60 ml/min/1.73 sqM); Partial Thromboplastin Time 24.2 sec (22.0-30.0); Potassium 4.2 mmol/L (3.5-5.1); Prothrombin Time 10.3 sec (9.0-12.0); Sodium 137 mmol/L (137-145); Total Bilirubin 0.7 mg/dL (0.2-1.3); Total Protein 6.9 g/dL (6.3-8.2)
[2017-02-28] MEDS ORDERED: RX INFO: IV CONTRAST WAS GIVEN 1 EACH MISC MISCELLANE PRN (22:31)
[2017-02-28] MEDS ORDERED: MORPHINE SULFATE 4 MG/ML SYRINGE IVP STA (22:37)
--- NOTE | 2017-02-28 23:07 | XR ---
EXAM: XR Chest, 2 Views CLINICAL HISTORY: Reason: pain TECHNIQUE: Frontal and lateral views of the chest. COMPARISON: Chest x-ray 01/02/17 FINDINGS: Lungs: Unremarkable. No consolidation. Pleural space: No pleural effusion. No pneumothorax. Heart: Unremarkable. No cardiomegaly. Mediastinum: Unremarkable. Bones/joints: No acute findings. IMPRESSION: No acute cardiopulmonary disease.
--- NOTE | 2017-02-28 23:24 | CT ---
EXAM: CT Abdomen and Pelvis With Intravenous Contrast CLINICAL HISTORY: Reason: Pain TECHNIQUE: Axial computed tomography images of the abdomen and pelvis with intravenous contrast. Coronal and sagittal reformats were obtained. CTDI is 6.40 mGy and DLP is 443.40 mGy-cm. This CT exam was performed using one or more of the following dose reduction techniques: automated exposure control, adjustment of the mA and/or kV according to patient size, and/or use of iterative reconstruction technique. COMPARISON: No relevant prior studies available. FINDINGS: Lower thorax: No acute findings. ABDOMEN: Liver: Hepatic steatosis. Gallbladder and bile ducts: Unremarkable. No calcified stones. No ductal dilation. Pancreas: Unremarkable. No mass. No ductal dilation. Spleen: Unremarkable. No splenomegaly. Adrenals: Unremarkable. No mass. Kidneys and ureters: Small right renal hypodensity, too small to characterize but likely cysts. No hydronephrosis. Stomach and bowel: Moderate amount retained stool in the colon. No obstruction. No mucosal thickening. Appendix: Appendix is not seen. No right lower quadrant inflammatory changes to suggest appendicitis. PELVIS: Bladder: Mildly distended. No mass. Reproductive: 6.5 x 2.5 m ovoid cystic focus in the right adnexa, likely ovarian cyst or distended fallopian tube.. Small left adnexal cyst, likely corpus luteum cyst. ABDOMEN and PELVIS: Intraperitoneal space: Unremarkable. No free air. No significant fluid collection. Bones/joints: No acute fracture. Vasculature: Unremarkable. No abdominal aortic aneurysm. Lymph nodes: Unremarkable. No enlarged lymph nodes. IMPRESSION: 6.5 x 2.5 m ovoid cystic focus in the right adnexa, question short segment of fluid-filled small bowel versus ovarian cyst. If symptoms localize to this region, ultrasound could be used for further evaluation. Otherwise, recommend 6-12 week ultrasound follow-up.
--- NOTE | 2017-02-28 23:43 | CT ---
EXAM: CT Lumbar Spine With Intravenous Contrast CLINICAL HISTORY: Reason: Pain TECHNIQUE: Axial computed tomography images of the lumbar spine with intravenous contrast. Coronal and sagittal reformats were obtained. CTDI is 6.40 mGy and DLP is 443.40 mGy-cm. This CT exam was performed using one or more of the following dose reduction techniques: automated exposure control, adjustment of the mA and/or kV according to patient size, and/or use of iterative reconstruction technique. COMPARISON: No relevant prior studies available. FINDINGS: Vertebrae: Unremarkable. No acute fracture. Lumbar spine is well aligned. Discs/spinal canal/neural foramina: Mild multilevel degenerative changes. No acute findings. No osseous canal stenosis. Soft tissues: Unremarkable. IMPRESSION: No acute fracture or malalignment.
[2017-03-01 00:08] VITALS: BP 126/83; PULSE 81; TEMP 98
== END 2017-03-01 00:07 | disposition home or self-care (01) ==
LOC: EC 20:17
DX: M54.5 Low back pain (principal); R19.04 Left lower quadrant abdominal swelling, mass and lump; R50.9 Fever, unspecified; D72.829 Elevated white blood cell count, unspecified; R00.0 Tachycardia, unspecified; F41.9 Anxiety disorder, unspecified; F17.200 Nicotine dependence, unspecified, uncomplicated; Z79.899 Other long term (current) drug therapy; Z88.1 Allergy status to other antibiotic agents; Z91.048 Other nonmedicinal substance allergy status; Z90.49 Acquired absence of other specified parts of digestive tract
CPT/HCPCS: 36415; 80053; 83605; 85025; 85610; 85730; 81003; 87040; 87086; 71020; 72132; 74177; 99284; 96374; 96361 ×3; J2270; Q9967

== ENCOUNTER 2017-09-25 12:54 | Emergency (ER) | payer MEDICARE, OTHER ==
[2017-09-25 13:01] VITALS: BP 131/63; PULSE 91; RESP 18; TEMP 98.3
[2017-09-25] MEDS ORDERED: GABAPENTIN 400 MG CAP PO STA (13:13)
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
== END 2017-09-25 13:29 | disposition home or self-care (01) ==
LOC: EC 12:54
DX: Z76.0 Encounter for issue of repeat prescription (principal); F41.9 Anxiety disorder, unspecified; F20.9 Schizophrenia, unspecified; F17.200 Nicotine dependence, unspecified, uncomplicated; Z79.899 Other long term (current) drug therapy; Z88.1 Allergy status to other antibiotic agents; Z91.048 Other nonmedicinal substance allergy status
CPT/HCPCS: 99283

== ENCOUNTER 2017-09-26 08:50 | Emergency (ER) | payer MEDICARE, OTHER ==
[2017-09-26 09:01] VITALS: TEMP 98.3
[2017-09-26] MEDS ORDERED: predniSONE 50 MG TAB PO STA (09:41)
[2017-09-26] MEDS ORDERED: diphenhydrAMINE 50 MG CAP PO STA (09:41)
--- NOTE | 2017-09-26 09:46 | ED ---
Allergic Reaction HPI - General Chief complaint: Allergic Reaction Stated complaint: Poss Allergic Reaction Time Seen by Provider: 09/26/17 09:17 Source: EMS, RN notes reviewed, old records reviewed Mode of arrival: EMS Limitations: no limitations - History of Present Illness Initial Comments: 37-year-old female presents today chief complaint of ALLERGIC reaction bedbug bites. Patient reports she stated a friend's houses treated for bedbugs presently 4 months ago. She is sleeping On the floor and woke up with covered in a local reactions to bites. Patient states she's not had any bugs on her. They called an ambulance and was brought here. She reports that her eye symptoms somewhat swollen. Denies any difficulty breathing or tongue swelling. She's had no Benadryl at this time. She reports that it is itchy. - Related Data Home Medications Medication Instructions Recorded Confirmed LORazepam [Ativan] 1 mg PO TID 01/12/14 02/28/17 Tetracycline 1,000 mg PO DAILY 12/27/15 02/28/17 Albuterol Inhaler [Ventolin Hfa 1 - 2 puff INHALATION RT-Q6H PRN 02/28/17 Inhaler] Previous Rx's Medication Instructions Recorded Benztropine Mesylate [Cogentin] 0.5 mg PO BID #60 tab 01/04/16 Gabapentin [Neurontin] 300 mg PO TID #90 cap 01/04/16 fluPHENAZine [Prolixin] 20 mg PO HS #60 tab 01/04/16 traZODone HCL [Desyrel] 200 mg PO HS 1 Days tab 01/04/16 Hydrocortisone Cream 1 applic TOPICAL QID #1 tube 09/26/17 [Hydrocortisone 1% Cream] diphenhydrAMINE [Benadryl] 25 mg PO QID PRN #20 capsule 09/26/17 methylPREDNISolone Dose Pack 4 mg PO DIRECTED #21 package 09/26/17 [Medrol Dose Pack] Allergies Allergy/AdvReac Type Severity Reaction Status Date / Time sulfamethoxazole Allergy Swelling Verified 09/26/17 09:01 [From Bactrim] trimethoprim [From Bactrim] Allergy Swelling Verified 09/26/17 09:01 cottonwood Allergy Swelling Uncoded 09/26/17 09:01 Review of Systems ROS Statement: Those systems with pertinent positive or pertinent negative responses have been documented in the HPI. ROS Other: All systems not noted in ROS Statement are negative. 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, no active infection that she is aware of, frequent abcess on external vagina History of Any Multi-Drug Resistant Organisms: None Reported Past Surgical History: Appendectomy, Uterine Ablation Additional Past Surgical History / Comment(s): LEAP about 8yr ago Past Psychological History: Anxiety, Bipolar, Schizoaffective Disorder, Schizophrenia Smoking Status: Current every day smoker Past Alcohol Use History: Occasional Past Drug Use History: Marijuana, Opiates General Exam - General Exam Comments Initial Comments: This patient is a 37-year-old female. No distress. Limitations: no limitations General appearance: alert, in no apparent distress Head exam: Present: atraumatic, normocephalic, normal inspection Eye exam: Present: normal appearance, PERRL, EOMI. Absent: scleral icterus, conjunctival injection, periorbital swelling ENT exam: Present: normal exam, mucous membranes moist, other (Patient does have some minor swelling around bilateral eyes.) Neck exam: Present: normal inspection. Absent: tenderness, meningismus, lymphadenopathy Respiratory exam: Present: normal lung sounds bilaterally. Absent: respiratory distress, wheezes, rales, rhonchi, stridor Cardiovascular Exam: Present: regular rate, normal rhythm, normal heart sounds. Absent: systolic murmur, diastolic murmur, rubs, gallop, clicks GI/Abdominal exam: Present: soft, normal bowel sounds. Absent: distended, tenderness, guarding, rebound, rigid Extremities exam: Present: normal inspection, full ROM, normal capillary refill. Absent: tenderness, pedal edema, joint swelling, calf tenderness Back exam: Present: normal inspection Neurological exam: Present: alert, oriented X3, CN II-XII intact Psychiatric exam: Present: normal affect, normal mood Skin exam: Present: warm, dry, intact, normal color, rash (Patient has multiple localized urticaria reactions over her arms, chest and abdomen and face.) Course Vital Signs 09/26/17 09/26/17 08:58 10:10 Temperature 98.3 F Pulse Rate 88 93 Respiratory 20 18 Rate Blood Pressure 122/73 117/68 O2 Sat by Pulse 100 99 Oximetry Medical Decision Making - Medical Decision Making Patient is very distraught female with multiple localized ALLERGIC reactions related to bites. Most likely bedbug bites. I do not see any benefit, patient at this time. I discussed that she needs to avoid the location she received the bites. Discussed taking Motrin Tylenol for pain and applying anti- inflammatory creams as well as taking steroids and Benadryl. Given a dose of steroids and Benadryl emergency department. I'll caution stressor return parameters were discussed. Disposition Clinical Impression: Allergic reaction, Insect bite Disposition: HOME SELF-CARE Condition: Good Instructions: General Allergic Reaction (ED) Additional Instructions: Patient advised to take the medication apply the cream as prescribed. Do not return to that house with history of bedbugs. Clean all of your clothes in hot water. Return to emergency department if any alarming signs or symptoms occur. Prescriptions: diphenhydrAMINE [Benadryl] 25 mg PO QID PRN #20 capsule PRN Reason: Pain Hydrocortisone Cream [Hydrocortisone 1% Cream] 1 applic TOPICAL QID #1 tube methylPREDNISolone Dose Pack [Medrol Dose Pack] 4 mg PO DIRECTED #21 package Referrals: Ranjeet Medina MD [Primary Care Provider] - 1-2 days Time of Disposition: 09:44
[2017-09-26 10:11] VITALS: BP 117/68; PULSE 93; RESP 18
== END 2017-09-26 10:12 | disposition home or self-care (01) ==
LOC: EC 08:50
DX: S00.86XA Insect bite (nonvenomous) of other part of head, initial encounter (principal); S30.861A Insect bite (nonvenomous) of abdominal wall, initial encounter; S20.369A Insect bite (nonvenomous) of unspecified front wall of thorax, initial encounter; S40.862A Insect bite (nonvenomous) of left upper arm, initial encounter; S40.861A Insect bite (nonvenomous) of right upper arm, initial encounter; L50.0 Allergic urticaria; F20.9 Schizophrenia, unspecified; F31.9 Bipolar disorder, unspecified; F41.9 Anxiety disorder, unspecified; F17.200 Nicotine dependence, unspecified, uncomplicated; Z79.899 Other long term (current) drug therapy; Z88.2 Allergy status to sulfonamides; Z91.048 Other nonmedicinal substance allergy status; W57.XXXA Bitten or stung by nonvenomous insect and other nonvenomous arthropods, initial encounter
CPT/HCPCS: 99284; J7512

== ENCOUNTER 2018-03-15 17:31 | Inpatient (IN) | payer MEDICARE, MEDICAID ==
--- NOTE | 2018-03-15 18:06 | ED ---
Psych HPI - General Chief Complaint: Psychiatric Symptoms Stated Complaint: EPS eval Time Seen by Provider: 03/15/18 17:48 Source: patient Mode of arrival: ambulatory - History of Present Illness Initial Comments: 37-year-old female patient presents emergency department today for complaints of suicidal ideation. Patient states that she has been out of her gabapentin for the last 3-4 months and she thinks that it is causing her to have hallucinations and feel increasingly depressed. Patient states that for the last 2 days she has been hearing her boyfriend's voice telling her to kill herself. She states that her plan is to take a bunch of pills. States she has attempted this in the past. Patient states that she does attend [facility] classes, court ordered as she is on probation. Patient states she drinks alcohol occasionally, denies any alcohol use today. States she smoked marijuana. Denies any other drug use. Patient states that she feels weak and tired and feels this is related to her medication as well. Patient denies any recent rash , fever, chills, shortness breath, chest pain, abdominal pain, nausea, vomiting , diarrhea, constipation, back pain, numbness, tingling, dizziness, hematuria, dysuria, urinary urgency, urinary frequency, headache, visual changes, or any other complaints. - Related Data Home Medications Medication Instructions Recorded Confirmed LORazepam [Ativan] 1 mg PO TID 01/12/14 02/28/17 Tetracycline 1,000 mg PO DAILY 12/27/15 02/28/17 Albuterol Inhaler [Ventolin Hfa 1 - 2 puff INHALATION RT-Q6H PRN 02/28/17 Inhaler] Previous Rx's Medication Instructions Recorded Benztropine Mesylate [Cogentin] 0.5 mg PO BID #60 tab 01/04/16 Gabapentin [Neurontin] 300 mg PO TID #90 cap 01/04/16 fluPHENAZine [Prolixin] 20 mg PO HS #60 tab 01/04/16 traZODone HCL [Desyrel] 200 mg PO HS 1 Days tab 01/04/16 Hydrocortisone Cream 1 applic TOPICAL QID #1 tube 09/26/17 [Hydrocortisone 1% Cream] diphenhydrAMINE [Benadryl] 25 mg PO QID PRN #20 capsule 09/26/17 methylPREDNISolone Dose Pack 4 mg PO DIRECTED #21 package 02/21/18 [Medrol Dose Pack] Cyclobenzaprine [Flexeril] 10 mg PO TID #12 tab 11/23/17 Ibuprofen 600 mg PO Q6HR #20 tablet 11/23/17 Allergies Allergy/AdvReac Type Severity Reaction Status Date / Time sulfamethoxazole Allergy Swelling Verified 03/15/18 17:38 [From Bactrim] trimethoprim [From Bactrim] Allergy Swelling Verified 03/15/18 17:38 cottonwood Allergy Swelling Uncoded 03/15/18 17:38 Review of Systems ROS Statement: Those systems with pertinent positive or pertinent negative responses have been documented in the HPI. ROS Other: All systems not noted in ROS Statement are negative. 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, no active infection that she is aware of, frequent abcess on external vagina History of Any Multi-Drug Resistant Organisms: None Reported Past Surgical History: Appendectomy, Uterine Ablation Additional Past Surgical History / Comment(s): LEAP about 8yr ago Past Psychological History: Anxiety, Bipolar, Schizoaffective Disorder, Schizophrenia Smoking Status: Current every day smoker Past Alcohol Use History: Occasional Past Drug Use History: Marijuana, Opiates General Exam Limitations: no limitations General appearance: alert, in no apparent distress, other (This is a well- developed, well-nourished adult female patient in no acute distress. Vital signs upon presentation are temperature 99.9F, pulse 92, respirations 20, blood pressure 116/78, pulse ox 100% on room air.) Eye exam: Present: normal appearance, PERRL, EOMI. Absent: scleral icterus, conjunctival injection, periorbital swelling ENT exam: Present: normal exam, normal oropharynx, mucous membranes moist Respiratory exam: Present: normal lung sounds bilaterally. Absent: respiratory distress, wheezes, rales, rhonchi, stridor Cardiovascular Exam: Present: regular rate, normal rhythm, normal heart sounds. Absent: systolic murmur, diastolic murmur, rubs, gallop, clicks GI/Abdominal exam: Present: soft, normal bowel sounds. Absent: distended, tenderness, guarding, rebound, rigid Neurological exam: Present: alert, oriented X3, CN II-XII intact Psychiatric exam: Present: normal affect, normal mood Skin exam: Present: warm, dry, intact, normal color. Absent: rash Course Vital Signs 03/15/18 17:36 Temperature 99.9 F H Pulse Rate 92 Respiratory 20 Rate Blood Pressure 116/78 O2 Sat by Pulse 100 Oximetry Medical Decision Making - Medical Decision Making 37-year-old female patient presented to the emergency department today for complaints of suicidal ideation and hallucinations. Physical examination was unremarkable. Patient was seen and evaluated by emergency psychiatric services and it was felt that she would benefit from inpatient mission at this time. During stay patient did become verbally abusive and was screaming at staff. Was acting very paranoid and stated that a "spirit is strangling me". Patient was given Geodon and Ativan to assist with symptoms. She'll be transferred to the mental health unit. - Lab Data Lab Results 03/15/18 03/15/18 Range/Units 18:04 18:04 Urine Color Yellow Urine Appearance Clear (Clear) Urine pH 6.5 (5.0-8.0) Ur Specific Nixon 1.006 (1.001-1.035) Urine Protein Negative (Negative) Urine Glucose (UA) Negative (Negative) Urine Ketones Negative (Negative) Urine Blood Negative (Negative) Urine Nitrite Negative (Negative) Urine Bilirubin Negative (Negative) Urine Urobilinogen <2.0 (<2.0) mg/dL Ur Leukocyte Esterase Negative (Negative) Urine HCG, Qual Not Detected (Not Detectd) Urine Opiates Screen Not Detected (NotDetected) Ur Oxycodone Screen Not Detected (NotDetected) Urine Methadone Screen Not Detected (NotDetected) Ur Propoxyphene Screen Not Detected (NotDetected) Ur Barbiturates Screen Not Detected (NotDetected) U Tricyclic Antidepress Not Detected (NotDetected) Ur Phencyclidine Scrn Not Detected (NotDetected) Ur Amphetamines Screen Not Detected (NotDetected) U Methamphetamines Scrn Not Detected (NotDetected) U Benzodiazepines Scrn Not Detected (NotDetected) Urine Cocaine Screen Not Detected (NotDetected) U Marijuana (THC) Screen Not Detected (NotDetected) Disposition Clinical Impression: Suicidal ideation, Acute psychosis Disposition: TRANSFER TO PSYCH HOSP/UNIT Referrals: Ranjeet Medina MD [Primary Care Provider] - 1-2 days - Out of Hospital Transfer - Req. Specs Out of Hospital Transfer - Requested Specifics: Psychiatric Non-ICU ([facility])
[2018-03-15 18:23] LABS: Appearance,Urine Clear (Clear); Bilirubin,Urine Negative (Negative); Blood,Urine Negative (Negative); Color,Urine Yellow; Glucose,Urine (UA) Negative (Negative); Ketones,Urine Negative (Negative); Leukocyte Esterase,Urine Negative (Negative); Nitrite,Urine Negative (Negative); PH, Urine 6.5 (5.0-8.0); Protein,Urine Negative (Negative); Specific Gravity,Urine 1.006 (1.001-1.035); Urobilinogen,Urine <2.0 mg/dL (<2.0)
[2018-03-15 18:32] LABS: Amphetamine Screen,Urine Not Detected (NotDetected); Barbiturate Screen,Urine Not Detected (NotDetected); Benzodiazepines Screen,Urine Not Detected (NotDetected); Cocaine Screen,Urine Not Detected (NotDetected); Methadone Screen, Urine Not Detected (NotDetected); Opiate Screen,Urine Not Detected (NotDetected); Oxycodone Screen, Urine Not Detected (NotDetected); Phencyclidine Screen,Urine Not Detected (NotDetected); Tricyclic Antidepressant,Urine Not Detected (NotDetected); Urn Cannabinoid Scrn Not Detected (NotDetected)
[2018-03-15] MEDS ORDERED: ZIPRASIDONE 20 MG VIAL IM STA (18:58)
[2018-03-15] MEDS ORDERED: LORazepam 2 MG/ML INJ IM STA (18:58)
[2018-03-15] MEDS ORDERED: ZIPRASIDONE 20 MG VIAL IM PRN (21:26)
[2018-03-15] MEDS ORDERED: MAG HYDROX/AL HYDROX/SIMETH 30 ML CUP PO PRN (21:26)
[2018-03-15] MEDS ORDERED: MAGNESIUM HYDROXIDE 2,400 MG/10 ML CUP PO PRN (21:26)
[2018-03-15] MEDS: BENZTROPINE MESYLATE 0.5 MG TAB PO SCH (23:54)
[2018-03-15] MEDS: GABAPENTIN 400 MG CAP PO SCH (23:54)
[2018-03-15] MEDS: traZODone HCL 100 MG TAB PO SCH (23:54)
[2018-03-16] MEDS: GABAPENTIN 400 MG CAP PO SCH ×2 (10:13→20:22)
[2018-03-16] MEDS: CITALOPRAM HYDROBROMIDE 20 MG TAB PO SCH (10:13)
[2018-03-16] MEDS: BENZTROPINE MESYLATE 0.5 MG TAB PO SCH ×2 (10:14→20:21)
[2018-03-16] MEDS: NICOTINE 14MG/24HR PATCH TRANSDERM SCH ×2 (10:16→15:54)
--- NOTE | 2018-03-16 13:43 | HP ---
HISTORY AND PHYSICAL DATE OF SERVICE: 03/16/2018. IDENTIFYING DATA: This patient is a 37-year-old single female who was admitted to the mental health unit through the emergency room with a report of suicidal ideation, homicidal thoughts, and psychosis. HISTORY OF PRESENT ILLNESS: The patient carries a diagnosis of schizoaffective disorder and she is treated by [facility] on an outpatient basis. She reports that she has experienced an exacerbation of auditory hallucinations telling her to hurt herself and hurt others. She has no intended victim and states that aggressive thoughts are generalized. She reports hearing her boyfriend's voice, her roommate's voice and her sister's voice all saying derogatory things in her head. She states they tell her she is ugly and that she should harm herself. She endorses a mood that is depressed. She finds herself tearful. She indicates that she has had difficulty sleeping, missing at least 2 nights of sleep over the last week. Appetite has been stable. Energy has been low. She endorses no racing thoughts. She states that she does have anxiety symptoms fairly regularly, but does not appear to have panic attacks. She is endorsing visual hallucinations in the form of seeing the room move and she feels that is indicating people are trying to get into her head. She did have feelings of paranoia and felt unsafe, but states that she feels safe in the hospital. She endorses no history of hypomanic or manic episodes. However, the patient is a limited historian during this session. PAST PSYCHIATRIC HISTORY: She has had approximately 4 inpatient admissions. She was on this mental health unit last in December of 2015 under the care of Dr. King. She is prescribed Celexa 40 mg daily, Prolixin 20 mg at bedtime, Neurontin 800 mg twice daily, trazodone 200 mg at bedtime, Cogentin 0.5 mg twice daily. She reports being on numerous other antipsychotics in the past including Haldol, Abilify, Risperdal and Zyprexa. She again is not a valid historian in describing past medication trials. She states that she is working with a Dr. Gonsales with [facility]. She endorses a history of 3 to 4 suicide attempts, the last one was 2 years ago when she overdosed on 40 pills. She states that her suicide attempts usually involve medication overdose and she does not present for help afterwards once she wakes up. She had her first overdose at age 15 and she was admitted to [facility] for an extended period of time. PAST MEDICAL HISTORY: None reported. ALLERGIES: SULFA, BACTRIM. CHEMICAL DEPENDENCY HISTORY: She reports infrequently using alcohol but did use alcohol 2 nights prior to this admission. She states she has been using marijuana. She did previously have a history of using crack cocaine, but states she has used none in the last 11 years. She endorses no use of any other illicit drugs. Her urine drug screen was negative. She has never been placed in residential treatment for chemical dependency reasons. FAMILY PSYCHIATRIC HISTORY: She has a twin identical sister who is also diagnosed with schizoaffective disorder. No suicides in the family. FAMILY CHEMICAL DEPENDENCY HISTORY: The patient, her mother and her sister previously used crack cocaine. The patient's father is identified as being an alcoholic. SOCIAL HISTORY: The patient is 37 years old. She is single. She resides in her own residence. She does not work. She has a Social Security Disability income. She has a 10th grade education and quit school because it was "too hard." She has one brother and one identical twin sister. It appears she has little contact with siblings. She reports speaking with her mother frequently. MENTAL STATUS EXAM: The patient is a female appearing older than her stated age. She has a disheveled appearance. Hygiene appears impaired. She is dressed in hospital attire. She frequently moves and touches her hair during the session. She is noticed to have several moles on her face, particularly around her eyes. She identifies a depressed mood. She presented with hopeless thinking and suicidal ideation, but reports feeling safe in the hospital. She reported with nonspecific homicidal thoughts but states those have resolved as well as she feels safe in the hospital. She endorses ongoing auditory hallucinations, hearing the voices of her roommate, ex-boyfriend and sister. She states those hallucinations are usually derogatory and can be commanding at times. She endorses visual hallucinations as noted. She previously was endorsing paranoid persecutory thoughts. She has spontaneous speech. She demonstrates loose associations, but no flight of ideas. She will have tangential thinking. Speech is not pressured. She will change the tone of her voice at times and become briefly loud. She demonstrates no verbal or physical aggressiveness. She demonstrates no abnormal involuntary movements. Insight and judgment are impaired. She is oriented to person, place, day of the week, month and year. She struggles with any further cognitive testing today. Affect can be labile. STRENGTHS: Income, housing, willingness to receive treatment voluntarily. WEAKNESSES: Ongoing symptoms of psychosis. INTELLECT: Average. IMPRESSIONS: 1. Schizoaffective disorder, depressed type, versus bipolar type. 2. Cocaine use disorder, reportedly in remission. 3. Rule out cannabis use disorder. PLAN OF TREATMENT: The patient has been admitted to the mental health unit. She has signed in voluntarily. We reviewed her presenting symptoms and treatment options. We decided we would titrate the Prolixin further adding a 5 mg dose in the morning. We will review her community mental health records once they become available. She will continue on the Celexa, Neurontin, trazodone, and Cogentin. Social Work will meet with the patient to complete a psychosocial assessment. She will be seen by Internal Medicine for routine history and physical exam. We will involve family or support individuals in her treatment and discharge planning as she will allow. Reality orientation was provided during our session. She is encouraged to participate in the milieu appropriately. We will monitor her for safety. MMODL / IJN: [id number] /
--- NOTE | 2018-03-16 13:51 | P.CONS ---
History of Present Illness - Reason for Consult Consult date: 03/16/18 Medical management - Chief Complaint Suicidal ideation - History of Present Illness 37-year-old female patient presents emergency department today for complaints of suicidal ideation. Patient states that she has been out of her gabapentin for the last 3-4 months and she thinks that it is causing her to have hallucinations and feel increasingly depressed. Patient states that for the last 2 days she has been hearing her boyfriend's voice telling her to kill herself. She states that her plan is to take a bunch of pills. States she has attempted this in the past. Patient states that she does attend [facility] classes, court ordered as she is on probation. Patient states she drinks alcohol occasionally, denies any alcohol use today. States she smoked marijuana. Denies any other drug use. Patient states that she feels weak and tired and feels this is related to her medication as well. Patient denies any recent rash , fever, chills, shortness breath, chest pain, abdominal pain, nausea, vomiting , diarrhea, constipation, back pain, numbness, tingling, dizziness, hematuria, dysuria, urinary urgency, urinary frequency, headache, visual changes, or any other complaints. Review of Systems Constitutional: Denies anorexia, Denies chills, Denies fever Eyes: denies blurred vision Ears, nose, mouth and throat: Denies headache Cardiovascular: Denies chest pain, Denies dyspnea on exertion Respiratory: Denies cough with sputum Gastrointestinal: Denies heartburn, Denies hematemesis, Denies nausea, Denies vomiting Genitourinary: Denies dysuria, Denies hematuria Integumentary: Denies brittle nails, Denies pruritus, Denies rash Neurological: Denies confusion, Denies double vision, Denies memory loss 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, no active infection that she is aware of, frequent abcess on external vagina History of Any Multi-Drug Resistant Organisms: None Reported Past Surgical History: Appendectomy, Uterine Ablation Additional Past Surgical History / Comment(s): LEAP about 8yr ago Past Psychological History: Anxiety, Bipolar, Schizoaffective Disorder, Schizophrenia Smoking Status: Current every day smoker Past Alcohol Use History: Occasional Past Drug Use History: Marijuana, Opiates Medications and Allergies Home Medications Medication Instructions Recorded Confirmed Type Benztropine Mesylate [Cogentin] 0.5 mg PO BID #60 tab 01/04/16 03/15/18 Rx fluPHENAZine [Prolixin] 20 mg PO HS #60 tab 01/04/16 03/15/18 Rx Albuterol Inhaler [Ventolin Hfa 2 puff INHALATION RT-Q4H PRN 02/28/17 03/15/18 History Inhaler] Citalopram Hydrobromide [CeleXA] 40 mg PO DAILY 03/15/18 03/15/18 History Gabapentin 800 mg PO BID 03/15/18 03/15/18 History Utejgqvf-Ykskogkawr-Dueu Oint 1 applic TOPICAL Q8H PRN 03/15/18 03/15/18 History [Triple Antibiotic Ointment] Allergies Allergy/AdvReac Type Severity Reaction Status Date / Time sulfamethoxazole Allergy Swelling Verified 03/15/18 19:48 [From Bactrim] trimethoprim [From Bactrim] Allergy Swelling Verified 03/15/18 19:48 [place]wood Allergy Swelling Uncoded 03/15/18 17:38 Physical Exam Vitals: Vital Signs Temp Pulse Pulse Resp BP BP Pulse Ox 03/16/18 06:30 97.7 F 77 12 101/55 03/15/18 21:48 98.2 F 80 16 102/65 99 03/15/18 21:22 99.0 F 88 18 120/76 99 03/15/18 17:36 99.9 F H 92 20 116/78 100 Intake and Output 03/15/18 03/16/18 03/16/18 22:59 06:59 14:59 Other: Weight 65.431 kg - Constitutional General appearance: Present: average body habitus, cooperative, no acute distress - EENT Eyes: Present: anicteric sclerae, EOMI, PERRLA, normal appearance ENT: Present: hearing grossly normal, normal oropharynx Ears: bilateral: normal - Neck Neck: Present: normal ROM. Absent: lymphadenopathy, rigidity, thyromegaly Carotids: negative: bruit present Thyroid: bilateral: normal size, negative: enlarged, nodule - Respiratory Respiratory: bilateral: CTA, negative: rales, rhonchi, wheezing - Cardiovascular Rhythm: regular Heart sounds: normal: S1, S2 Abnormal Heart Sounds: Absent: systolic murmur, diastolic murmur - Gastrointestinal General gastrointestinal: Present: normal bowel sounds, soft. Absent: distended , organomegaly, tenderness - Genitourinary Genitourinary Comment(s): deferred - Integumentary Integumentary: Present: normal turgor. Absent: jaundiced, rash, ulcer - Neurologic Neurologic: Present: CNII-XII intact. Absent: focal deficits - Musculoskeletal Musculoskeletal: Present: gait normal, strength equal bilaterally - Psychiatric Psychiatric: Present: A&O x's 3, appropriate affect, intact judgment & insight Assessment and Plan Assessment: 1. Asthma; not in exacerbation - We will continue with Ventolin inhaler on when necessary basis 2. Chronic back pain/muscle spasms/DJD; stable 3. Suicide idealization/acute psychosis; your management 4. Sleep disorder; patient remains on trazodone 200 mg at bedtime 5. Chronic tobacco use; continue with nicotine patch 14 mg per 24 hours CODE STATUS; full code Time with Patient: Less than 30
[2018-03-16] MEDS: ACETAMINOPHEN TAB 325 MG TAB PO PRN ×2 (15:54→21:15)
[2018-03-16] MEDS: traZODone HCL 100 MG TAB PO SCH (23:14)
[2018-03-17] MEDS: CITALOPRAM HYDROBROMIDE 20 MG TAB PO SCH (08:54)
[2018-03-17] MEDS: BENZTROPINE MESYLATE 0.5 MG TAB PO SCH ×2 (08:54→20:57)
[2018-03-17] MEDS: GABAPENTIN 400 MG CAP PO SCH ×2 (08:54→20:57)
[2018-03-17] MEDS: NICOTINE 14MG/24HR PATCH TRANSDERM SCH (08:54)
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
[2018-03-17 17:00] VITALS: BMI 23.8
[2018-03-17] MEDS: traZODone HCL 100 MG TAB PO SCH (22:08)
[2018-03-18] MEDS: NICOTINE 14MG/24HR PATCH TRANSDERM SCH (09:49)
[2018-03-18] MEDS: BENZTROPINE MESYLATE 0.5 MG TAB PO SCH ×2 (09:49→20:47)
[2018-03-18] MEDS: GABAPENTIN 400 MG CAP PO SCH ×2 (09:49→20:47)
[2018-03-18] MEDS: CITALOPRAM HYDROBROMIDE 20 MG TAB PO SCH (09:49)
--- NOTE | 2018-03-18 09:51 | P.PN ---
Progress Note - Text Interval history: The patient is found in her room she follows me to an interview room. She reports that she is doing better. The auditory hallucinations are less frequent and they are less derogatory. She states last night she heard her boyfriend's voice saying he didn't love her. She states "that is just my psychosis". She felt comforted when she spoke with her mother last evening. She reports having no suicidal thoughts or homicidal thoughts today. She did eat breakfast. She attended 2 groups yesterday per her report. Mental status exam: The patient is alert she is dressed in her own clothing hygiene is adequate. Eye contact is appropriate. She reports her mood is improving. She continues to endorse auditory hallucinations making some derogatory comments but it's they are not commanding and they are becoming less often. She is reporting no acute suicidal or homicidal ideation as she feels safe here in the hospital. She demonstrates no verbal or physical aggressiveness. She demonstrates no abnormal involuntary movements. Insight and judgment slowly improving. Affect is constricted. She is endorsing no acute delusional thoughts and no visual hallucinations. Plan: The patient's will continue on her current medication she is encouraged to get up earlier in the morning and participate in morning groups. We will monitor for safety. She requires continued hospitalization however her symptoms of psychosis appear to be improving. She will likely be appropriate for discharge sometime this week. Vital signs reviewed.
[2018-03-19] MEDS: traZODone HCL 100 MG TAB PO SCH ×3 (00:05→22:49)
[2018-03-19] MEDS: NICOTINE 14MG/24HR PATCH TRANSDERM SCH (08:51)
[2018-03-19] MEDS: BENZTROPINE MESYLATE 0.5 MG TAB PO SCH ×2 (08:51→20:51)
[2018-03-19] MEDS: GABAPENTIN 400 MG CAP PO SCH ×2 (08:51→20:51)
[2018-03-19] MEDS: CITALOPRAM HYDROBROMIDE 20 MG TAB PO SCH (08:51)
[2018-03-19] MEDS: ALBUTEROL NEBULIZED 2.5 MG/3 ML INHALATION PRN ×2 (09:19→19:05)
[2018-03-19] MEDS ORDERED: BACITRACIN OINT 1 EACH PACKET TOPICAL ONE ×2 (09:49→22:50)
--- NOTE | 2018-03-19 11:33 | P.PN ---
Progress Note - Text Interval history: The patient is found in group she follows me to an interview room. She reports her mood is better. She is reporting no suicidal or homicidal ideation intent or plan. She is expected to meet with her mother for a family meeting this afternoon. She states that she did experience some auditory hallucinations last night but none this morning. She states she expects him to continue but at least her mood is better. She has no questions or concerns regarding her medication. Mental status exam: The patient is alert she is dressed in her own clothing eye contact is appropriate. Speech is fluent and spontaneous nonpressured. Affect is brighter. She is reporting no acute suicidal or homicidal ideation intent or plan. She continues to endorse some auditory hallucinations but none at this time last perception of those was last evening it was noncommanding. She demonstrates no verbal or physical aggressiveness she demonstrates no abnormal involuntary movements. She is oriented to person place and date. Insight and judgment improving. Plan: The patient appears to be clinically stabilizing we will await input from her mother during the family meeting to see if she is approximating her baseline function. If she demonstrates continued improvement she may be appropriate for discharge as soon as tomorrow. Vital signs reviewed. We will monitor her for safety she is encouraged to participate in the milieu
[2018-03-20 06:41] VITALS: BP 110/59; PULSE 91; RESP 12; TEMP 97.5
--- NOTE | 2018-03-20 09:42 | P.DS ---
Providers Date of admission: 03/15/18 20:53 Expected date of discharge: 03/20/18 Attending physician: Jovany Francis Consults: 03/15/18 21:26 Consult Physician Routine Consulting Provider: Ranjeet Medina Consult Reason/Comments: H&P for mental health admission Do you want consulting provider notified?: Already Contacted Primary care physician: Ranjeet Medina - Discharge Diagnosis(es) (1) Schizoaffective disorder Current Visit: Yes Status: Acute Priority: High Hospital Course: Brief summary of admission note: This patient is a 37-year-old single female who was admitted to the mental health unit through the emergency room with a report of suicidal ideation homicidal thoughts and psychosis. The patient carries a diagnosis of schizoaffective disorder and is treated through [facility]. She reported no exacerbation of auditory hallucinations directing her to harm herself and others. She specified no individual potential victim or group. She reported hearing the voice of her boyfriend roommate and sister all making derogatory comments. She reported having difficulty sleeping energy has been low. She was reporting feelings of not being safe and needed to be in the hospital. For full details please refer to my psychiatric evaluation dated 03/16/2018. Summary of hospital course: The patient was admitted to the mental health unit she was willing to sign in voluntarily. We reviewed her presenting symptoms and treatment options. We decided to continue her outpatient psychiatric medications however we did titrate the Prolixin further adding a 5 mg dose in the morning. During the course of the hospitalization the patient reported that the auditory hallucinations were less severe and less frequent. She reported a resolution of any command auditory hallucinations. She states that her suicidal homicidal thoughts have resolved. The patient selectively attended groups. She did tend to sleep in on the mornings and attended more in the afternoon. She demonstrated no agitated behavior. She was pleasant and directable throughout the stay. She did meet with internal medicine for routine history and physical exam. Mental status exam: The patient is a female appearing her stated age. She is dressed in her own clothing. Hygiene grooming are adequate. Speech is fluent spontaneous nonpressured. She reports her mood is good she denies having any hopeless thoughts she denies having any suicidal ideation intent or plan. She denies having any homicidal ideation intent or plan. At no time did she specified any individual person or specific group of people that she wanted to harm. She reports ongoing hallucinations that are quieter in no longer making derogatory statements. She is endorsing no visual hallucinations. She reports feeling safe. She demonstrates no tangential thinking loose associations or flight of ideas. She does not appear hypomanic or manic. Affect is constricted. She is able to remain seated calmly in the chair she demonstrates no abnormal involuntary movements. She demonstrates no verbal or physical aggressiveness. She is oriented to person place and date. Impressions 1. Schizoaffective disorder depressed type rule out bipolar type, cocaine use disorder reported to be in remission, rule out cannabis use disorder Plan: The patient will be discharged mental health unit today to return home. She did participate in a support meeting involving her mother yesterday that went well. The patient will continue following up with [facility] for outpatient mental healthcare. The patient will continue on Prolixin 20 mg at bedtime 5 mg in the morning, Cogentin 0.5 mg twice daily, Celexa 40 mg daily , trazodone 200 mg at bedtime. There is no imminent safety risk she is appropriate for transition to outpatient care. She does not feel that she needs inpatient chemical dependency treatment for her marijuana use. She is encouraged to remain abstinent from any alcohol marijuana or any other illicit drug as it may elevate her safety risk. She is instructed to return to the hospital any acute safety issues. Patient Condition at Discharge: Stable Plan - Discharge Summary Discharge Rx Participant: No New Discharge Prescriptions: New fluPHENAZine [Prolixin] 5 mg PO DAILY #30 tab Nicotine 14Mg/24Hr Patch [Habitrol] 1 patch TRANSDERM DAILY #10 patch traZODone HCL [Desyrel] 200 mg PO HS #60 tab Continue Albuterol Inhaler [Ventolin Hfa Inhaler] 2 puff INHALATION RT-Q4H PRN PRN Reason: Shortness Of Breath Gabapentin 800 mg PO BID Benztropine Mesylate [Cogentin] 0.5 mg PO BID #60 tab Citalopram Hydrobromide [CeleXA] 40 mg PO DAILY #30 tablet fluPHENAZine [Prolixin] 20 mg PO HS #60 tab Discontinued Kspcgzil-Ufzxvhklcj-Yyia Oint [Triple Antibiotic Ointment] 1 applic TOPICAL Q8H PRN PRN Reason: Skin Irritation Discharge Medication List Albuterol Inhaler [Ventolin Hfa Inhaler] 2 puff INHALATION RT-Q4H PRN 02/28/17 [ History] Gabapentin 800 mg PO BID 03/15/18 [History] Benztropine Mesylate [Cogentin] 0.5 mg PO BID #60 tab 03/20/18 [Rx] Citalopram Hydrobromide [CeleXA] 40 mg PO DAILY #30 tablet 03/20/18 [Rx] Nicotine 14Mg/24Hr Patch [Habitrol] 1 patch TRANSDERM DAILY #10 patch 03/20/18 [ Rx] fluPHENAZine [Prolixin] 5 mg PO DAILY #30 tab 03/20/18 [Rx] fluPHENAZine [Prolixin] 20 mg PO HS #60 tab 03/20/18 [Rx] traZODone HCL [Desyrel] 200 mg PO HS #60 tab 03/20/18 [Rx] Follow up Appointment(s)/Referral(s): [facility] [Outside] - 03/21/18 2:00 pm (03/21/18 @ 2 pm w/ Gladys Ayon 03/26 @ 2 pm w/ Dr. Gonsales) Ranjeet Medina MD [Primary Care Provider] - 1-2 days
[2018-03-20] MEDS: GABAPENTIN 400 MG CAP PO SCH (10:28)
[2018-03-20] MEDS: BENZTROPINE MESYLATE 0.5 MG TAB PO SCH (10:28)
[2018-03-20] MEDS: CITALOPRAM HYDROBROMIDE 20 MG TAB PO SCH (10:28)
[2018-03-20] MEDS: NICOTINE 14MG/24HR PATCH TRANSDERM SCH (10:29)
== END 2018-03-20 12:45 | disposition home or self-care (01) | DRG 885 ==
LOC: EC 17:31 → 3MHU 20:53
PROVIDERS: ADMIT Psychiatry & Neurology Psychiatry; ATTEND Psychiatry & Neurology Psychiatry
DX: F25.1 Schizoaffective disorder, depressive type (principal); R45.851 Suicidal ideations; M62.838 Other muscle spasm; R45.850 Homicidal ideations; F41.9 Anxiety disorder, unspecified; F31.9 Bipolar disorder, unspecified; F17.200 Nicotine dependence, unspecified, uncomplicated; J45.909 Unspecified asthma, uncomplicated; M47.9 Spondylosis, unspecified; F14.11 Cocaine abuse, in remission; Z79.899 Other long term (current) drug therapy; Z79.52 Long term (current) use of systemic steroids; Z88.2 Allergy status to sulfonamides; Z90.49 Acquired absence of other specified parts of digestive tract; Z91.5 Personal history of self-harm; Z81.8 Family history of other mental and behavioral disorders
CPT/HCPCS: 80306; 81003; 81025; 82075; 94640; 96372; 99285

== ENCOUNTER 2018-08-13 01:33 | Inpatient (IN) | payer MEDICARE, MEDICAID ==
[2018-08-13] MEDS ORDERED: SODIUM CHLORIDE 0.9% 2,000 ML IV ONE (01:50)
[2018-08-13] MEDS ORDERED: LORazepam 2 MG/ML INJ IV STA (01:50)
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
[2018-08-13 03:34] LABS: Basophils # (A) 0.1 k/uL (0-0.2); Basophils % (A) 0 %; Eosinophils % (A) 0 %; HCT 40.4 % (34.0-46.0); HGB 13.4 gm/dL (11.4-16.0); Lymphocytes # (A) 1.3 k/uL (1.0-4.8); Lymphocytes % (A) 6 %; MCH 29.8 pg (25.0-35.0); MCHC 33.2 g/dL (31.0-37.0); MCV 89.8 fL (80.0-100.0); Mean Platelet Volume 9.1; Monocytes % (A) 4 %; Neutrophils # (A) 21.5 k/uL (1.3-7.7); Neutrophils % (A) 89 %; Platelet Count 204 k/uL (150-450); RDW 14.1 % (11.5-15.5)
[2018-08-13 03:40] LABS: ALT 31 U/L (9-52); AST 20 U/L (14-36); Acetaminophen <10.0 ug/mL; Albumin 4.2 g/dL (3.5-5.0); Alcohol <10 mg/dL; Alkaline Phosphatase 69 U/L (38-126); Anion Gap 11 mmol/L; Blood Urea Nitrogen 18 mg/dL (7-17); Calcium 9.1 mg/dL (8.4-10.2); Carbon Dioxide 20 mmol/L (22-30); Chloride 108 mmol/L (98-107); Glucose 103 mg/dL (74-99); Potassium 3.8 mmol/L (3.5-5.1); Salicylate <1.0 mg/dL; Sodium 139 mmol/L (137-145); Total Bilirubin 1.2 mg/dL (0.2-1.3); Total Protein 7.2 g/dL (6.3-8.2)
[2018-08-13] MEDS ORDERED: MAGNESIUM HYDROXIDE 2,400 MG/10 ML CUP PO PRN (08:18)
[2018-08-13] MEDS: NICOTINE 14MG/24HR PATCH TRANSDERM SCH (09:22)
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
[2018-08-13] MEDS: HALOPERIDOL LACTATE 5 MG/ML 1 ML VIAL IM PRN ×2 (10:59→17:34)
[2018-08-13] MEDS ORDERED: INFLUENZA VACCINE (6 MOS+) 60 MCG/0.5 ML SYRINGE IM ONE (11:40)
[2018-08-13] MEDS ORDERED: PNEUMOCOCCAL VACC-PNEUMOVAX 23 25 MCG/0.5 ML VIAL IM ONE (11:41)
[2018-08-13 12:52] VITALS: BMI 23.1
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
[2018-08-13 17:49] LABS: Amphetamine Screen,Urine Detected (NotDetected); Barbiturate Screen,Urine Not Detected (NotDetected); Benzodiazepines Screen,Urine Not Detected (NotDetected); Cocaine Screen,Urine Not Detected (NotDetected); Methadone Screen, Urine Not Detected (NotDetected); Opiate Screen,Urine Not Detected (NotDetected); Oxycodone Screen, Urine Not Detected (NotDetected); Phencyclidine Screen,Urine Not Detected (NotDetected); Tricyclic Antidepressant,Urine Not Detected (NotDetected); Urn Cannabinoid Scrn Detected (NotDetected)
[2018-08-13] MEDS ORDERED: PALIPERIDONE 3 MG TAB.ER.24 PO SCH (21:00)
[2018-08-13] MEDS ORDERED: lamoTRIgine 25 MG TAB PO SCH (21:00)
[2018-08-14] MEDS ORDERED: HALOPERIDOL LACTATE 5 MG/ML 1 ML VIAL ONE (03:06)
[2018-08-14] MEDS ORDERED: MAG HYDROX/AL HYDROX/SIMETH 30 ML CUP ONE (03:06)
[2018-08-14] MEDS: NICOTINE 14MG/24HR PATCH TRANSDERM SCH ×2 (08:27→17:18)
[2018-08-14] MEDS ORDERED: clonazePAM 0.5 MG TAB PO STA (10:16)
[2018-08-14 10:22] LABS: Anion Gap 7 mmol/L; Blood Urea Nitrogen 11 mg/dL (7-17); Carbon Dioxide 22 mmol/L (22-30); Chloride 113 mmol/L (98-107); Cholesterol 133 mg/dL (<200); Glucose 93 mg/dL (74-99); HDL Cholesterol 44 mg/dL (40-60); LDL Cholesterol,Calculated 76 mg/dL (0-99); Potassium 4.1 mmol/L (3.5-5.1); Sodium 142 mmol/L (137-145); Triglycerides 67 mg/dL (<150)
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
[2018-08-14] MEDS: MAG HYDROX/AL HYDROX/SIMETH 30 ML CUP PO PRN ×2 (15:00→21:09)
[2018-08-14] MEDS: PANTOPRAZOLE 40 MG TABLET PO SCH (17:07)
[2018-08-14] MEDS: clonazePAM 0.5 MG TAB PO SCH (20:26)
[2018-08-14] MEDS: PRAMIPEXOLE 0.5 MG TAB PO SCH (20:26)
[2018-08-14] MEDS ORDERED: lamoTRIgine 25 MG TAB PO SCH (21:00)
[2018-08-14] MEDS ORDERED: PALIPERIDONE 6 MG TAB.ER.24 PO SCH (21:00)
[2018-08-14 21:02] LABS: Hemoglobin A1C 5.4 % (4.0-6.0)
[2018-08-14] MEDS: guaiFENesin 600 MG TABLET.ER PO PRN (21:37)
[2018-08-15] MEDS: PANTOPRAZOLE 40 MG TABLET PO SCH ×2 (08:05→17:41)
[2018-08-15] MEDS: NICOTINE 14MG/24HR PATCH TRANSDERM SCH (08:05)
[2018-08-15] MEDS: clonazePAM 0.5 MG TAB PO SCH ×2 (08:05→20:23)
--- NOTE | 2018-08-15 11:09 | P.PN ---
Subjective Progress Note Date: 08/15/18 Principal diagnosis: Schizoaffective bipolar type History of hearing voices today and very upset and still has suicidal thoughts. 08/15/2018: She was seen while she was in her room laying down stating that she did not sleep last night she still hearing the voices still feels somewhat suicidal without a plan depressed anxious fearful. Objective - Vital Signs Vital signs: Vital Signs Temp 98.0 F 08/15/18 06:25 Pulse 85 08/15/18 06:25 Resp 12 08/15/18 06:25 BP 98/56 08/15/18 06:25 Pulse Ox 100 08/13/18 06:25 - Labs CBC & Chem 7: 08/13/18 02:12 08/14/18 09:26 Assessment and Plan Assessment: Luisa is a 38-year-old female who presents to ED today for psychiatric evaluation. Patient admits that she has been Reports that she has an extensive psychiatric history. She reports she is currently noncompliant with her medications. She reports that she was smoking methamphetamine prior to coming to the emergency department. Patient states that she allowed her boyfriend to color or paint her with blue paint, however she is very unclear about the events prior to arrival. Patient' s thoughts are very tangential and - Mental Status Examination - this is a 38-year-old identical twin to Minda who felt that her boyfriend was thinking of however once sister while they were having sexual intercourse. She has profound auditory hallucinations that are command in nature and self-destructive. Her entire body is filled with different degrees of magic marker blue in color. General Appearance: [disheveled, bizarre, appears stated age, childlike in presentation Speech/Language: [slow, rambled, expressive, loud Attitude/Behavior: [cooperative, guarded, irritable Mood: [ depressed, anxious, irritable, fearful, hopelessness Affect: [ lively, flat, incongruent, labile Orientation: [time, person, place situation] Thought Content: [wnl Risk Factors: [She is suicidal (ideation, plan), but not Homicidal (ideation, plan), other] Perception: hallucinations (auditory)] Thought Processes: [ concrete, circumstantial, tangential] Concentration/Attention Span: [ impaired] [Per observation and interview with the patient] Recent Memory: [Impaired] [0 out of 3 in 3 minutes] Remote Memory: [ impaired] [past events, as related history] Intelligence: [below average] [based on history, based on vocabulary, syntax, grammar, and content] Judgement: [ poor] [per patient's behavior/history of present illness] Insight: [poor] [understanding severity of illness/history of present illness] Admitting Diagnosis: [Schizoaffective bipolar type with acute psychosis] Patient Strengths - Housing stability: [x] Able to vocalize needs: [x] Motivation, determination, readiness for change: [x] Patient Limitations: [medication, non-compliance, pathological/unsupported environment, no interests, intellectual impairment, Initial Plan of Care: [She was admitted in formal voluntary to the behavior health unit 3 W. and placed on usual protocol for the second including 15 minute checks and observation [facility] therapeutic environment. She'll be evaluated by medicine, psychiatry, social work, nursing staff, and occupational therapy. She'll be integrated in the [facility] therapeutic environment where she'll be expected to go to groups and participate and be adherent to a medical treatment plan. She'll be started on Invega 3 mg to a titration of 9 mg (08/15/2018) and converted to 234 mg Invega IM: She will be started on Lamictal 25 mg adjusted daily (100 mg by mouth daily at bedtime as of 08/15/2018) until a maximum dose of 200 mg is achieved. She also be given today 08/13/2008 Haldol 2 mg helped calm her down since she is experiencing very loud internal auditory hallucinations with visual hallucinations.] Estimated Length of Stay: [4 days] Initial Discharge Plan: [[place], [facility] Prognosis: [ guarded] Justification for Inpatient Hospitalization - [Hallucinations, delusions, agitation, anxiety, depression resulting in significant loss of functioning.] [Emotional or behavioral conditions and complications requiring 24 hour medical and nursing care.] [Need for special drug therapy, or other therapeutic program requiring continuous hospitalization.] [Failure of social or occupational functioning.] [Inability to meet basic life and health needs. She remains in bed and unable to sleep at night still agitated to a lesser degree with her not going to groups. She was able to give get up and go to breakfast this morning that all.] (1) Schizoaffective disorder, bipolar type Current Visit: Yes Status: Acute Priority: High Code(s): F25.0 - SCHIZOAFFECTIVE DISORDER, BIPOLAR TYPE SNOMED Code(s): 70249418 (2) Schizoaffective disorder Current Visit: Yes Status: Acute Priority: High Code(s): F25.9 - SCHIZOAFFECTIVE DISORDER, UNSPECIFIED SNOMED Code(s): 01215238 Plan: She was admitted in formal voluntary to the behavior health unit 3 W. and placed on usual protocol for the second including 15 minute checks and observation [facility] therapeutic environment. She'll be evaluated by medicine, psychiatry, social work, nursing staff, and occupational therapy. She 'll be integrated in the [facility] therapeutic environment where she'll be expected to go to groups and participate and be adherent to a medical treatment plan. She'll be started on Invega 3 mg to a titration of 9 mg (08/15/2018) and converted to 234 mg Invega IM: She will be started on Lamictal 25 mg adjusted daily (100 mg by mouth daily at bedtime 08/15/2018)until a maximum dose of 200 mg is achieved. She also be given today 08/13/2008 Haldol 2 mg helped calm her down since she is experiencing very loud internal auditory hallucinations with visual hallucinations.] 08/14/2018: She is still remains quite psychotic delusional and agitated for fall and will increase her Invega to 6 mg today, increase Lamictal to 50 mg by mouth daily at bedtime, she complaining of sour stomach and will add protonic's , she complains of severe anxiety and will plan for the next 2 days to use Klonopin 0.25 mg twice a day, add Mirapex for restless leg syndrome 0.5 mg by mouth daily at bedtime. We'll follow and observe and adjust medications accordingly. 08/15/2018: She is less psychotic today but still delusional with less agitation. She was unable to sleep last night. She will be increased on her Invega to 9 mg by mouth daily at bedtime with an increase of her Lamictal to 100 mg by mouth daily at bedtime. She has multiple somatic complaints today including insomnia, stomach ache, anxiety and inability to socialize. She is withdrawn and in her room today and not interacting with peers or staff. Her roommate encouraged her to get up and she refused and is lying in bed with covers up to her mouth. Time with Patient: Less than 30
[2018-08-15] MEDS: guaiFENesin 600 MG TABLET.ER PO PRN (13:57)
[2018-08-15] MEDS: PRAMIPEXOLE 0.5 MG TAB PO SCH (20:23)
[2018-08-15] MEDS: PALIPERIDONE 3 MG TAB.ER.24 PO SCH (20:23)
[2018-08-15] MEDS ORDERED: lamoTRIgine 100 MG TAB PO SCH (21:00)
[2018-08-16] MEDS: PANTOPRAZOLE 40 MG TABLET PO SCH ×2 (08:27→17:13)
[2018-08-16] MEDS: clonazePAM 0.5 MG TAB PO SCH (08:27)
[2018-08-16] MEDS: NICOTINE 14MG/24HR PATCH TRANSDERM SCH ×2 (08:28→13:06)
[2018-08-16] MEDS: guaiFENesin 600 MG TABLET.ER PO PRN ×2 (08:29→21:35)
--- NOTE | 2018-08-16 11:33 | P.PN ---
Subjective Progress Note Date: 08/16/18 Principal diagnosis: Schizoaffective bipolar type History of hearing voices today and very upset and still has suicidal thoughts. 08/15/2018: She was seen while she was in her room laying down stating that she did not sleep last night she still hearing the voices still feels somewhat suicidal without a plan depressed anxious fearful. 08/16/2018: Chart reviewed, patient teamed at meeting, interviewed the patient while she was in her room. She states she still has difficulty with hearing voices and displays psychomotor agitation and restlessness. She does not sleep at night but she sleeps through the morning. She denies any suicidal homicidal ideation but still responding to internal stimuli. She remains depressed anxious and overwhelmed. Objective - Vital Signs Vital signs: Vital Signs Temp 98.1 F 08/16/18 06:14 Pulse 89 08/16/18 06:14 Resp 16 08/16/18 06:14 BP 105/58 08/16/18 06:14 Pulse Ox 100 08/13/18 06:25 - Labs CBC & Chem 7: 08/13/18 02:12 08/14/18 09:26 Assessment and Plan Assessment: Luisa is a 38-year-old female who presents to ED today for psychiatric evaluation. Patient admits that she has been Reports that she has an extensive psychiatric history. She reports she is currently noncompliant with her medications. She reports that she was smoking methamphetamine prior to coming to the emergency department. Patient states that she allowed her boyfriend to color or paint her with blue paint, however she is very unclear about the events prior to arrival. Patient' s thoughts are very tangential and - Mental Status Examination - this is a 38-year-old identical twin to Minda who felt that her boyfriend was thinking of however once sister while they were having sexual intercourse. She has profound auditory hallucinations that are command in nature and self-destructive. Her entire body is filled with different degrees of magic marker blue in color. General Appearance: [disheveled, bizarre, appears stated age, childlike in presentation Speech/Language: [slow, rambled, expressive, loud Attitude/Behavior: [cooperative, guarded, irritable Mood: [ depressed, anxious, irritable, fearful, hopelessness Affect: [ lively, flat, incongruent, labile Orientation: [time, person, place situation] Thought Content: [wnl Risk Factors: [She is suicidal (ideation, plan), but not Homicidal (ideation, plan), other] Perception: hallucinations (auditory)] Thought Processes: [ concrete, circumstantial, tangential] Concentration/Attention Span: [ impaired] [Per observation and interview with the patient] Recent Memory: [Impaired] [0 out of 3 in 3 minutes] Remote Memory: [ impaired] [past events, as related history] Intelligence: [below average] [based on history, based on vocabulary, syntax, grammar, and content] Judgement: [ poor] [per patient's behavior/history of present illness] Insight: [poor] [understanding severity of illness/history of present illness] Admitting Diagnosis: [Schizoaffective bipolar type with acute psychosis] Patient Strengths - Housing stability: [x] Able to vocalize needs: [x] Motivation, determination, readiness for change: [x] Patient Limitations: [medication, non-compliance, pathological/unsupported environment, no interests, intellectual impairment, Initial Plan of Care: [She was admitted in formal voluntary to the behavior health unit 3 W. and placed on usual protocol for the second including 15 minute checks and observation [facility] therapeutic environment. She'll be evaluated by medicine, psychiatry, social work, nursing staff, and occupational therapy. She'll be integrated in the [facility] therapeutic environment where she'll be expected to go to groups and participate and be adherent to a medical treatment plan. She'll be started on Invega 3 mg to a titration of 9 mg (08/15/2018) and converted to 234 mg Invega IM on 08/20/2018: She will be started on Lamictal 25 mg adjusted daily (200 mg by mouth daily at bedtime as of 08/16/2018) until a maximum dose of 200 mg is achieved. She also be given today 08/13/2008 Haldol 2 mg helped calm her down since she is experiencing very loud internal auditory hallucinations with visual hallucinations. She also be placed on Cogentin 1 mg twice a day and change from Mirapex to Requip 0.7 mg at nighttime for restless leg syndrome.] Estimated Length of Stay: [ 3 days] anticipated discharge date of 08/20/2018 Initial Discharge Plan: [[place], [facility] Prognosis: [ guarded] Justification for Inpatient Hospitalization - [Hallucinations, delusions, agitation, anxiety, depression resulting in significant loss of functioning.] [Emotional or behavioral conditions and complications requiring 24 hour medical and nursing care.] [Need for special drug therapy, or other therapeutic program requiring continuous hospitalization.] [Failure of social or occupational functioning.] [Inability to meet basic life and health needs. She remains in bed and unable to sleep at night still agitated to a lesser degree with her not going to groups. She was able to give get up and go to breakfast this morning that all.] (1) Schizoaffective disorder, bipolar type Current Visit: Yes Status: Acute Priority: High Code(s): F25.0 - SCHIZOAFFECTIVE DISORDER, BIPOLAR TYPE SNOMED Code(s): 90851900 (2) Schizoaffective disorder Current Visit: Yes Status: Acute Priority: High Code(s): F25.9 - SCHIZOAFFECTIVE DISORDER, UNSPECIFIED SNOMED Code(s): 63949115 Plan: She was admitted in formal voluntary to the behavior health unit 3 W. and placed on usual protocol for the second including 15 minute checks and observation [facility] therapeutic environment. She'll be evaluated by medicine, psychiatry, social work, nursing staff, and occupational therapy. She 'll be integrated in the [facility] therapeutic environment where she'll be expected to go to groups and participate and be adherent to a medical treatment plan. She'll be started on Invega 3 mg to a titration of 9 mg (08/15/2018) and converted to 234 mg Invega IM: She will be started on Lamictal 25 mg adjusted daily (100 mg by mouth daily at bedtime 08/15/2018)until a maximum dose of 200 mg is achieved. She also be given today 08/13/2008 Haldol 2 mg helped calm her down since she is experiencing very loud internal auditory hallucinations with visual hallucinations.] 08/14/2018: She is still remains quite psychotic delusional and agitated for fall and will increase her Invega to 6 mg today, increase Lamictal to 50 mg by mouth daily at bedtime, she complaining of sour stomach and will add protonic's , she complains of severe anxiety and will plan for the next 2 days to use Klonopin 0.25 mg twice a day, add Mirapex for restless leg syndrome 0.5 mg by mouth daily at bedtime. We'll follow and observe and adjust medications accordingly. 08/15/2018: She is less psychotic today but still delusional with less agitation. She was unable to sleep last night. She will be increased on her Invega to 9 mg by mouth daily at bedtime with an increase of her Lamictal to 100 mg by mouth daily at bedtime. She has multiple somatic complaints today including insomnia, stomach ache, anxiety and inability to socialize. She is withdrawn and in her room today and not interacting with peers or staff. Her roommate encouraged her to get up and she refused and is lying in bed with covers up to her mouth. 08/16/2018: She is able to communicate better today but she still has difficulty with sleep and restlessness difficulty in functioning and limited mount of group activity. On 08/20/2018 oh use Invega 234 mg injectable, DC'd her Mirapex and change to Requip 0.75 mg by mouth daily at bedtime for restless leg, increased her Lamictal to 200 mg by mouth daily at bedtime for mood stability. Time with Patient: Less than 30
[2018-08-16] MEDS: ACETAMINOPHEN TAB 325 MG TAB PO PRN (14:15)
[2018-08-16] MEDS: lamoTRIgine 100 MG TAB PO SCH (20:04)
[2018-08-16] MEDS: BENZTROPINE MESYLATE 1 MG TAB PO SCH (20:04)
[2018-08-16] MEDS: PALIPERIDONE 3 MG TAB.ER.24 PO SCH (20:05)
[2018-08-17] MEDS: NICOTINE 14MG/24HR PATCH TRANSDERM SCH (07:29)
[2018-08-17] MEDS: PANTOPRAZOLE 40 MG TABLET PO SCH ×2 (07:29→16:26)
[2018-08-17] MEDS: BENZTROPINE MESYLATE 1 MG TAB PO SCH ×2 (07:30→18:53)
--- NOTE | 2018-08-17 13:20 | P.PN ---
Progress Note - Text Progress Note Date: 08/17/18 Interval history: Patient is seen in cross coverage today. She reports that she is feeling better overall mood chambers. She does make reference to looking at discharge planning for Sunday. She relays that she was using meth before coming into the hospital. She states that she was feeling suicidal at the time. Mental status exam: Patient is found in the dining area eating lunch. She is agreeable to come to the interview room. She does describe mood improvement. She does not show any agitation. She denies any thoughts of suicide. She does not voice any thoughts of harm to others. She does not display any evidence of psychosis or current agitation. Plan: Patient will be maintained on current psychotropic medication regimen. We 'll continue to monitor for any medication side effects and monitor her ongoing response to treatment.
[2018-08-17] MEDS: HALOPERIDOL LACTATE 5 MG/ML 1 ML VIAL IM PRN ×2 (17:04→21:15)
[2018-08-17] MEDS: PALIPERIDONE 3 MG TAB.ER.24 PO SCH (18:53)
[2018-08-17] MEDS: lamoTRIgine 100 MG TAB PO SCH (18:53)
[2018-08-17] MEDS ORDERED: LORazepam 0.5 MG TAB PO STA (23:59)
[2018-08-18] MEDS ORDERED: LORazepam 1 MG TAB PO STA (00:05)
[2018-08-18] MEDS ORDERED: LORazepam 0.5 MG TAB PO ONE (00:15)
[2018-08-18] MEDS: BENZTROPINE MESYLATE 1 MG TAB PO SCH ×2 (07:26→20:04)
[2018-08-18] MEDS: PANTOPRAZOLE 40 MG TABLET PO SCH ×2 (07:26→16:59)
[2018-08-18] MEDS: NICOTINE 14MG/24HR PATCH TRANSDERM SCH ×2 (07:27→11:42)
[2018-08-18] MEDS: ACETAMINOPHEN TAB 325 MG TAB PO PRN ×2 (11:41→16:59)
[2018-08-18] MEDS: HALOPERIDOL LACTATE 5 MG/ML 1 ML VIAL IM PRN (12:41)
--- NOTE | 2018-08-18 13:19 | P.PN ---
Progress Note - Text Progress Note Date: 08/18/18 Interval history: Patient seen in cross coverage again today. She relays that she slept only about 3 hours last night. She makes reference to having auditory hallucinations and also having thoughts of suicide. She initially makes reference to thoughts of harm to her mom but then denies having thoughts of harm to her mom and says she's just upset with her. She per nursing staff has not had any benefit with Haldol and has reportedly had benefit with Prolixin in the past. The when necessary Haldol has been changed to Prolixin. Mental status exam: She is alert and cooperative with coming to the interview room. She presents as quite agitated today. She relays auditory hallucinations of hearing intimacy between her ex- and her sister. She also seems to make reference to visual hallucinations of seeing her sister. She makes reference to thoughts of suicide. She initially makes a comment about thoughts of harm to her mom but then says she's just upset with her mom and denies any thoughts of harm to her mom. Plan: Patient will be changed from when necessary Haldol to when necessary Prolixin with history of more benefit with Prolixin. We will monitor her ongoing response to treatment. Discussed her status with staff and we'll monitor closely regarding any thoughts of suicide. Continue to monitor regarding any medication side effects.
[2018-08-18] MEDS: flUPHENAZine 2.5 MG/ML (MDV) 10 ML VIAL IM PRN (13:29)
[2018-08-18] MEDS ORDERED: LORazepam 0.5 MG TAB PO STA (17:53)
[2018-08-18] MEDS: PALIPERIDONE 3 MG TAB.ER.24 PO SCH (20:05)
[2018-08-18] MEDS: lamoTRIgine 100 MG TAB PO SCH (20:05)
[2018-08-19] MEDS: flUPHENAZine 2.5 MG/ML (MDV) 10 ML VIAL IM PRN (00:25)
[2018-08-19] MEDS: PANTOPRAZOLE 40 MG TABLET PO SCH ×2 (09:23→17:12)
[2018-08-19] MEDS: NICOTINE 14MG/24HR PATCH TRANSDERM SCH (09:23)
[2018-08-19] MEDS: BENZTROPINE MESYLATE 1 MG TAB PO SCH ×2 (09:23→20:47)
[2018-08-19] MEDS ORDERED: PALIPERIDONE IM 234 MG/1.5 ML SYG IM STA (13:05)
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
[2018-08-19] MEDS: guaiFENesin 600 MG TABLET.ER PO PRN (13:55)
[2018-08-19] MEDS: PALIPERIDONE 6 MG TAB.ER.24 PO SCH (20:47)
[2018-08-19] MEDS: lamoTRIgine 100 MG TAB PO SCH (20:48)
[2018-08-20] MEDS ORDERED: PALIPERIDONE 3 MG TAB.ER.24 PO STA (00:07)
[2018-08-20 06:24] VITALS: RESP 16
[2018-08-20] MEDS: NICOTINE 14MG/24HR PATCH TRANSDERM SCH (08:44)
[2018-08-20] MEDS: BENZTROPINE MESYLATE 1 MG TAB PO SCH ×2 (08:44→20:00)
[2018-08-20] MEDS: PANTOPRAZOLE 40 MG TABLET PO SCH ×2 (08:44→17:29)
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
[2018-08-20] MEDS: lamoTRIgine 100 MG TAB PO SCH (19:59)
[2018-08-20] MEDS: PALIPERIDONE 6 MG TAB.ER.24 PO SCH (19:59)
[2018-08-20] MEDS: traZODone HCL 100 MG TAB PO SCH (20:00)
[2018-08-20] MEDS ORDERED: LORazepam 0.5 MG TAB PO STA (22:05)
[2018-08-21] MEDS: PANTOPRAZOLE 40 MG TABLET PO SCH ×2 (08:11→16:50)
[2018-08-21] MEDS: NICOTINE 14MG/24HR PATCH TRANSDERM SCH (08:11)
[2018-08-21] MEDS: BENZTROPINE MESYLATE 1 MG TAB PO SCH ×2 (08:12→20:46)
--- NOTE | 2018-08-21 12:53 | P.PN ---
Subjective Progress Note Date: 08/21/18 Principal diagnosis: Schizoaffective bipolar type History of hearing voices today and very upset and still has suicidal thoughts. 08/15/2018: She was seen while she was in her room laying down stating that she did not sleep last night she still hearing the voices still feels somewhat suicidal without a plan depressed anxious fearful. 08/16/2018: Chart reviewed, patient teamed at meeting, interviewed the patient while she was in her room. She states she still has difficulty with hearing voices and displays psychomotor agitation and restlessness. She does not sleep at night but she sleeps through the morning. She denies any suicidal homicidal ideation but still responding to internal stimuli. She remains depressed anxious and overwhelmed. 08/19/2018: Chart reviewed patient teamed admitting, interviewed patient while she was in room. She states that she still has difficulty with hearing voices and difficulty getting to sleep at night. She feels restless at times. She remains depressed anxious withdrawn and poor functioning in [facility]. Discussed with the patient that for meeting discharge criteria she needs to get up in the morning and do an entire day of groups meals ADLs etc. 08/20/2018: Chart reviewed patient teamed interviewed patient why she was in her room. She states she has less difficulty with voices today and still has difficulty with sleep at night. She continues to feel restless. She remains less depressed today still anxious and was able to attend groups. She denies any suicidal homicidal. He discussed her staying another day because she is gaining something groups and she agreed. 08/21/2018: Chart reviewed patient teamed interviewed patient and my office. She still states that she has less voices and enjoys going to groups. She has a new roommate and she likes the roommate. She always has auditory hallucinations at night time and tends to ask the nursing staff for Prolixin and discussed with her old change her nighttime dose of Invega to 9 mg to be given at 2300 hrs. and asked the patient not to take Ativan tonight. Objective - Vital Signs Vital signs: Vital Signs Temp 98.3 F 08/20/18 06:23 Pulse 96 08/20/18 22:13 Resp 16 08/20/18 06:23 BP 118/68 08/20/18 22:13 Pulse Ox 100 08/13/18 06:25 - Labs CBC & Chem 7: 08/13/18 02:12 08/14/18 09:26 Assessment and Plan Assessment: Luisa is a 38-year-old female who presents to ED today for psychiatric evaluation. Patient admits that she has been Reports that she has an extensive psychiatric history. She reports she is currently noncompliant with her medications. She reports that she was smoking methamphetamine prior to coming to the emergency department. Patient states that she allowed her boyfriend to color or paint her with blue paint, however she is very unclear about the events prior to arrival. Patient' s thoughts are very tangential and - Mental Status Examination - this is a 38-year-old identical twin to Minda who felt that her boyfriend was thinking of however once sister while they were having sexual intercourse. She has profound auditory hallucinations that are command in nature and self-destructive. Her entire body is filled with different degrees of magic marker blue in color. General Appearance: [disheveled, bizarre, appears stated age, childlike in presentation Speech/Language: [slow, rambled, expressive, soft and tearful Attitude/Behavior: [cooperative, guarded, irritable Mood: [ depressed, anxious, irritable, fearful, hopelessness Affect: [ lively, flat, incongruent, labile Orientation: [time, person, place situation] Thought Content: [wnl Risk Factors: [She is remians suicidal (ideation, plan), but not Homicidal ( ideation, plan), other] Perception: hallucinations (auditory)] Thought Processes: [ concrete, circumstantial, tangential] Concentration/Attention Span: [ impaired] [Per observation and interview with the patient] Recent Memory: [Impaired] [0 out of 3 in 3 minutes] Remote Memory: [ impaired] [past events, as related history] Intelligence: [below average] [based on history, based on vocabulary, syntax, grammar, and content] Judgement: [ poor] [per patient's behavior/history of present illness] Insight: [poor] [understanding severity of illness/history of present illness] Admitting Diagnosis: [Schizoaffective bipolar type with acute psychosis] Patient Strengths - Housing stability: [x] Able to vocalize needs: [x] Motivation, determination, readiness for change: [x] Patient Limitations: [medication, non-compliance, pathological/unsupported environment, no interests, intellectual impairment, Initial Plan of Care: [She was admitted in formal voluntary to the behavior health unit 3 W. and placed on usual protocol for the second including 15 minute checks and observation [facility]. She'll be evaluated by medicine, psychiatry, social work, nursing staff, and occupational therapy. She'll be integrated in the [facility] where she'll be expected to go to groups and participate and be adherent to a medical treatment plan. She'll be started on Invega 3 mg to a titration of 9 mg (08/21/2018) and converted to 234 mg Invega IM on 08/19/2018: She will be started on Lamictal 25 mg adjusted daily (200 mg by mouth daily at bedtime as of 08/16/2018) until a maximum dose of 200 mg is achieved. She also be given today 08/13/2008 Haldol 2 mg helped calm her down since she is experiencing very loud internal auditory hallucinations with visual hallucinations. She also be placed on Cogentin 2 mg twice a day and change from Mirapex to Requip 1.0 mg at nighttime for restless leg syndrome without resolution thus they were stopped. She has difficulty with sleep and will add trazodone 100 mg by mouth daily at bedtime.] She had to be given Prolixin the last 2 nights because of agitation I discontinued the Prolixin and increase the dose of Invega 9 mg at 2300 hrs. Estimated Length of Stay: [ 1 days] anticipated discharge date of 08/22/2018 Initial Discharge Plan: [[place], [facility] Prognosis: [ guarded] Justification for Inpatient Hospitalization - [Hallucinations, delusions, agitation, anxiety, depression resulting in significant loss of functioning.] [Emotional or behavioral conditions and complications requiring 24 hour medical and nursing care.] [Need for special drug therapy, or other therapeutic program requiring continuous hospitalization.] [Failure of social or occupational functioning.] [Inability to meet basic life and health needs. (1) Schizoaffective disorder, bipolar type Current Visit: Yes Status: Acute Priority: Medium Code(s): F25.0 - SCHIZOAFFECTIVE DISORDER, BIPOLAR TYPE SNOMED Code(s): 30807887 (2) Schizoaffective disorder Current Visit: Yes Status: Acute Priority: Medium Code(s): F25.9 - SCHIZOAFFECTIVE DISORDER, UNSPECIFIED SNOMED Code(s): 87929312
[2018-08-21] MEDS: guaiFENesin 600 MG TABLET.ER PO PRN (16:50)
[2018-08-21] MEDS: MAG HYDROX/AL HYDROX/SIMETH 30 ML CUP PO PRN (16:51)
[2018-08-21] MEDS: lamoTRIgine 100 MG TAB PO SCH (20:46)
[2018-08-21] MEDS: traZODone HCL 100 MG TAB PO SCH (20:46)
[2018-08-21] MEDS: PALIPERIDONE 3 MG TAB.ER.24 PO SCH (22:02)
[2018-08-22] MEDS: NICOTINE 14MG/24HR PATCH TRANSDERM SCH (08:07)
[2018-08-22] MEDS: PANTOPRAZOLE 40 MG TABLET PO SCH ×2 (08:08→16:47)
[2018-08-22] MEDS: BENZTROPINE MESYLATE 1 MG TAB PO SCH ×2 (08:08→20:58)
--- NOTE | 2018-08-22 11:29 | P.PN ---
Subjective Progress Note Date: 08/22/18 Principal diagnosis: Schizoaffective bipolar type History of hearing voices today and very upset and still has suicidal thoughts. 08/15/2018: She was seen while she was in her room laying down stating that she did not sleep last night she still hearing the voices still feels somewhat suicidal without a plan depressed anxious fearful. 08/16/2018: Chart reviewed, patient teamed at meeting, interviewed the patient while she was in her room. She states she still has difficulty with hearing voices and displays psychomotor agitation and restlessness. She does not sleep at night but she sleeps through the morning. She denies any suicidal homicidal ideation but still responding to internal stimuli. She remains depressed anxious and overwhelmed. 08/19/2018: Chart reviewed patient teamed admitting, interviewed patient while she was in room. She states that she still has difficulty with hearing voices and difficulty getting to sleep at night. She feels restless at times. She remains depressed anxious withdrawn and poor functioning in [facility]. Discussed with the patient that for meeting discharge criteria she needs to get up in the morning and do an entire day of groups meals ADLs etc. 08/20/2018: Chart reviewed patient teamed interviewed patient why she was in her room. She states she has less difficulty with voices today and still has difficulty with sleep at night. She continues to feel restless. She remains less depressed today still anxious and was able to attend groups. She denies any suicidal homicidal. He discussed her staying another day because she is gaining something groups and she agreed. 08/21/2018: Chart reviewed patient teamed interviewed patient and my office. She still states that she has less voices and enjoys going to groups. She has a new roommate and she likes the roommate. She always has auditory hallucinations at night time and tends to ask the nursing staff for Prolixin and discussed with her old change her nighttime dose of Invega to 9 mg to be given at 2300 hrs. and asked the patient not to take Ativan tonight. 08/22/2018 chart reviewed patient team this morning and interviewed in my office. Patient States That She Can Focus Away from the Voices but They Are Still Present. She Was Able to Sleep without Difficulty Last Night and Was Able to Talk to Her Roommate. She's Been Attending Groups and Feels That Another Night would be helpful and stabilizing her mood thoughts and anger. She did have a good interaction with her ex-boyfriend whereby she did not lose her cool Objective - Vital Signs Vital signs: Vital Signs Temp 97.4 F L 08/22/18 06:18 Pulse 82 08/22/18 06:18 Resp 16 08/22/18 06:18 BP 91/50 08/22/18 06:18 Pulse Ox 100 08/13/18 06:25 - Labs CBC & Chem 7: 08/13/18 02:12 08/14/18 09:26 Assessment and Plan Assessment: Luisa is a 38-year-old female who presents to ED today for psychiatric evaluation. Patient admits that she has been Reports that she has an extensive psychiatric history. She reports she is currently noncompliant with her medications. She reports that she was smoking methamphetamine prior to coming to the emergency department. Patient states that she allowed her boyfriend to color or paint her with blue paint, however she is very unclear about the events prior to arrival. Patient' s thoughts are very tangential and - Mental Status Examination - this is a 38-year-old identical twin to Minda who felt that her boyfriend was thinking of however once sister while they were having sexual intercourse. She has profound auditory hallucinations that are command in nature and self-destructive. Her entire body is filled with different degrees of magic marker blue in color. General Appearance: [disheveled, bizarre, appears stated age, childlike in presentation Speech/Language: [slow, rambled, expressive, soft and tearful Attitude/Behavior: [cooperative, guarded, irritable Mood: [ depressed, anxious, irritable, fearful, hopelessness Affect: [ lively, flat, incongruent, labile Orientation: [time, person, place situation] Thought Content: [wnl Risk Factors: [She is remians suicidal (ideation, plan), but not Homicidal ( ideation, plan), other] Perception: hallucinations (auditory)] Thought Processes: [ concrete, circumstantial, tangential] Concentration/Attention Span: [ impaired] [Per observation and interview with the patient] Recent Memory: [Impaired] [0 out of 3 in 3 minutes] Remote Memory: [ impaired] [past events, as related history] Intelligence: [below average] [based on history, based on vocabulary, syntax, grammar, and content] Judgement: [ poor] [per patient's behavior/history of present illness] Insight: [poor] [understanding severity of illness/history of present illness] Admitting Diagnosis: [Schizoaffective bipolar type with acute psychosis] Patient Strengths - Housing stability: [x] Able to vocalize needs: [x] Motivation, determination, readiness for change: [x] Patient Limitations: [medication, non-compliance, pathological/unsupported environment, no interests, intellectual impairment, Initial Plan of Care: [She was admitted in formal voluntary to the behavior health unit 3 W. and placed on usual protocol for the second including 15 minute checks and observation [facility]. She'll be evaluated by medicine, psychiatry, social work, nursing staff, and occupational therapy. She'll be integrated in the [facility] where she'll be expected to go to groups and participate and be adherent to a medical treatment plan. She'll be started on Invega 3 mg to a titration of 9 mg (08/21/2018) and converted to 234 mg Invega IM on 08/19/2018: She will be started on Lamictal 25 mg adjusted daily (200 mg by mouth daily at bedtime as of 08/16/2018) until a maximum dose of 200 mg is achieved. She also be given today 08/13/2008 Haldol 2 mg helped calm her down since she is experiencing very loud internal auditory hallucinations with visual hallucinations. She also be placed on Cogentin 2 mg twice a day and change from Mirapex to Requip 1.0 mg at nighttime for restless leg syndrome without resolution thus they were stopped. She has difficulty with sleep and will add trazodone 150 mg by mouth daily at bedtime.] She had to be given Prolixin the last 2 nights because of agitation I discontinued the Prolixin and increase the dose of Invega 9 mg at 2300 hrs. she has benefited by going to the groups and enjoys interacting sharing feelings and feel that she is making headway for stability and coping mechanisms for when she leaves the psychiatric unit. Estimated Length of Stay: [ 1 days] anticipated discharge date of 08/23/2018 Initial Discharge Plan: [home, [facility] [address] Prognosis: [ guarded] (1) Schizoaffective disorder, bipolar type Current Visit: Yes Status: Acute Priority: Medium Code(s): F25.0 - SCHIZOAFFECTIVE DISORDER, BIPOLAR TYPE SNOMED Code(s): 19240190 (2) Schizoaffective disorder Current Visit: Yes Status: Acute Priority: Medium Code(s): F25.9 - SCHIZOAFFECTIVE DISORDER, UNSPECIFIED SNOMED Code(s): 25501935 Plan: She was admitted in formal voluntary to the behavior health unit 3 W. and placed on usual protocol for the second including 15 minute checks and observation [facility]. She'll be evaluated by medicine, psychiatry, social work, nursing staff, and occupational therapy. She 'll be integrated in the [facility] where she'll be expected to go to groups and participate and be adherent to a medical treatment plan. She'll be started on Invega 3 mg to a titration of 9 mg (08/15/2018) and converted to 234 mg Invega IM: She will be started on Lamictal 25 mg adjusted daily (100 mg by mouth daily at bedtime 08/15/2018)until a maximum dose of 200 mg is achieved. She also be given today 08/13/2008 Haldol 2 mg helped calm her down since she is experiencing very loud internal auditory hallucinations with visual hallucinations.] 08/14/2018: She is still remains quite psychotic delusional and agitated for fall and will increase her Invega to 6 mg today, increase Lamictal to 50 mg by mouth daily at bedtime, she complaining of sour stomach and will add protonic's , she complains of severe anxiety and will plan for the next 2 days to use Klonopin 0.25 mg twice a day, add Mirapex for restless leg syndrome 0.5 mg by mouth daily at bedtime. We'll follow and observe and adjust medications accordingly. 08/15/2018: She is less psychotic today but still delusional with less agitation. She was unable to sleep last night. She will be increased on her Invega to 9 mg by mouth daily at bedtime with an increase of her Lamictal to 100 mg by mouth daily at bedtime. She has multiple somatic complaints today including insomnia, stomach ache, anxiety and inability to socialize. She is withdrawn and in her room today and not interacting with peers or staff. Her roommate encouraged her to get up and she refused and is lying in bed with covers up to her mouth. 08/16/2018: She is able to communicate better today but she still has difficulty with sleep and restlessness difficulty in functioning and limited mount of group activity. On 08/20/2018 oh use Invega 234 mg injectable, DC'd her Mirapex and change to Requip 0.75 mg by mouth daily at bedtime for restless leg, increased her Lamictal to 200 mg by mouth daily at bedtime for mood stability. 08/19/2018: She is able to communicate again better today but she sleeps all morning and has difficulty with sleep. She still hears voices and questionable thoughts of suicide but no plan. Today she will get Invega 234 mg IM sustenna and decrease her oral dose to 6 mg of Invega at bedtime. Will increase her Requip 1 mg by mouth daily at bedtime for restless leg syndrome. 08/20/2018: She was up and down to groups today and able to relate better. She became tearful at times during the interview. She is still not getting any sleep. We'll change from Mirapex/Requip to trazodone 100 mg by mouth daily at bedtime. 08/22/2018: She is up to groups today and is better relating to peers and staff. She is not tearful today at all. She denies any suicidal ideation or homicidal ideation however still hears auditory hallucinations which she can redirect. Increased her trazodone today 150 mg by mouth daily at bedtime for depression and sleep. Time with Patient: Greater than 30
[2018-08-22] MEDS: ACETAMINOPHEN TAB 325 MG TAB PO PRN (17:14)
[2018-08-22] MEDS: lamoTRIgine 100 MG TAB PO SCH (20:58)
[2018-08-22] MEDS ORDERED: traZODone HCL 50 MG TAB PO SCH (21:00)
[2018-08-22] MEDS: PALIPERIDONE 3 MG TAB.ER.24 PO SCH (22:37)
[2018-08-23] MEDS: guaiFENesin 600 MG TABLET.ER PO PRN (01:17)
[2018-08-23] MEDS: ACETAMINOPHEN TAB 325 MG TAB PO PRN (02:11)
[2018-08-23 06:22] VITALS: BP 126/54; PULSE 58; TEMP 98.9
[2018-08-23] MEDS: NICOTINE 14MG/24HR PATCH TRANSDERM SCH (08:40)
[2018-08-23] MEDS: BENZTROPINE MESYLATE 1 MG TAB PO SCH (08:41)
[2018-08-23] MEDS: PANTOPRAZOLE 40 MG TABLET PO SCH (08:41)
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
[2018-09-16] MEDS ORDERED: PALIPERIDONE IM 234 MG/1.5 ML SYG IM ONE (09:00)
== END 2018-08-23 12:40 | disposition home or self-care (01) | DRG 885 ==
LOC: EC 01:33 → 3MHU 07:55
PROVIDERS: ADMIT Psychiatry & Neurology Psychiatry; ATTEND Psychiatry & Neurology Psychiatry
DX: F25.0 Schizoaffective disorder, bipolar type (principal); R45.851 Suicidal ideations; Z91.128 Patient's intentional underdosing of medication regimen for other reason; F15.959 Other stimulant use, unspecified with stimulant-induced psychotic disorder, unspecified; T43.596A Underdosing of other antipsychotics and neuroleptics, initial encounter; T43.226A Underdosing of selective serotonin reuptake inhibitors, initial encounter; F41.9 Anxiety disorder, unspecified; Z23 Encounter for immunization; G44.209 Tension-type headache, unspecified, not intractable; J42 Unspecified chronic bronchitis; G25.81 Restless legs syndrome; F11.11 Opioid abuse, in remission; R45.1 Restlessness and agitation; F17.210 Nicotine dependence, cigarettes, uncomplicated; Z71.6 Tobacco abuse counseling; Z79.899 Other long term (current) drug therapy; Z91.048 Other nonmedicinal substance allergy status; Z86.11 Personal history of tuberculosis; Z90.49 Acquired absence of other specified parts of digestive tract; Z86.19 Personal history of other infectious and parasitic diseases; Z88.2 Allergy status to sulfonamides; Y92.009 Unspecified place in unspecified non-institutional (private) residence as the place of occurrence of the external cause
CPT/HCPCS: 36415; 80048; 80053; 80061; 80306; 80320; 81025; 82075; 83036; 83520; 84443; 85025; 96360; 96361; 99285

== ENCOUNTER 2019-10-02 20:29 | Inpatient (IN) | payer MEDICARE, MEDICAID ==
--- NOTE | 2019-10-02 20:44 | ED ---
General Adult HPI - General Chief complaint: Psychiatric Symptoms Stated complaint: Psych eval Time Seen by Provider: 10/02/19 20:36 Source: patient, police Mode of arrival: ambulatory Limitations: no limitations - History of Present Illness Initial comments: Dictation was produced using [employer] dictation software. please excuse any grammatical, word or spelling errors. Chief Complaint: 39-year-old female past medical history of pneumonia and psychiatric disease presents with suicidal ideation. History of Present Illness:-year-old female she was brought in by law enforcement. Patient allegedly called 911 and told the dispatcher that she was suicidal. She was picked up by law enforcement. She was escorted here. Patient was cooperative. Patient states she is hearing voices she hears her ex- boyfriend telling her to harm herself. Patient denies any homicidal ideation. Denies any visual hallucinations. Patient complains of psychiatric history. She has a history of illicit drug abuse. Patient denies any attempt. She s tates that if she wants to hurt herself she cut herself. The ROS documented in this emergency department record has been reviewed and confirmed by me. Those systems with pertinent positive or negative responses have been documented in the HPI. All other systems are other negative and/or noncontributory. PHYSICAL EXAM: General Impression: Alert and oriented x3, not in acute distress HEENT: Normocephalic atraumatic, extra-ocular movements intact, pupils equal and reactive to light bilaterally, mucous membranes moist. Cardiovascular: Heart regular rate and rhythm, S1&S2 audible, no murmurs, rubs or gallops Chest: Lungs clear to auscultation bilaterally, no rhonchi, no wheeze, no rales Abdomen: Bowel sounds present, abdomen soft, non-tender, non-distended, no organomegaly Musculoskeletal: Pulses present and equal in all extremities, no peripheral edema Motor: no focal deficits noted Neurological: CN II-XII grossly intact, no focal motor or sensory deficits noted Skin: Intact with no visualized rashes Psych: Normal affect and mood ED course: 39-year-old female presents with chief complaint of suicidal ideation. She does have a vague plan however. On arrival vital signs are wit hin acceptable limits. Patient medically cleared for EPS evaluation. Patient admitted to inpatient psychiatry. - Related Data Home Medications Medication Instructions Recorded Confirmed Fluphenazine Deconoate 25mg/1ml Oil 50 mg IM Q7D 10/02/19 10/03/19 buPROPion XL [Wellbutrin XL] 150 mg PO DAILY 10/02/19 10/03/19 Previous Rx's Medication Instructions Recorded Gabapentin [Neurontin] 400 mg PO DAILY #30 cap 10/10/19 Melatonin 5 mg PO HS PRN #30 tablet 10/10/19 Nicotine 14Mg/24Hr Patch [Habitrol] 1 patch TRANSDERM DAILY patch 10/10/19 lamoTRIgine [LaMICtal] 25 mg PO BID #60 tab 10/10/19 Allergies Allergy/AdvReac Type Severity Reaction Status Date / Time sulfamethoxazole Allergy Swelling Verified 10/03/19 00:04 [From Bactrim] trimethoprim [From Bactrim] Allergy Swelling Verified 10/03/19 00:04 cottonwood Allergy Swelling Uncoded 10/03/19 00:04 Review of Systems ROS Statement: Those systems with pertinent positive or pertinent negative responses have been documented in the HPI. ROS Other: All systems not noted in ROS Statement are negative. Past Medical History Past Medical History: Cancer, Pneumonia Additional Past Medical History / Comment(s): Frequent abcess on external vagina, UTI, cervical cancer with leap surgery History of Any Multi-Drug Resistant Organisms: None Reported Past Surgical History: Appendectomy, Uterine Ablation Additional Past Surgical History / Comment(s): LEAP about 8yr ago, Past Anesthesia/Blood Transfusion Reactions: No Reported Reaction Past Psychological History: Anxiety, Bipolar, Schizoaffective Disorder, Schizophrenia Smoking Status: Current every day smoker Past Alcohol Use History: Rare Past Drug Use History: Marijuana, Methamphetamine - Past Family History Mother Family Medical History: No Reported History Additional Family Medical History / Comment(s): Mother is healthy Father Additional Family Medical History / Comment(s): Pt states father is and she does not know cause of , Sister(s) Additional Family Medical History / Comment(s): Pt's twin sister has schizoaffective disorder. General Exam Limitations: no limitations Course Vital Signs 10/02/19 10/02/19 20:32 22:42 Temperature 98.2 F 98.7 F Pulse Rate 78 77 Respiratory 20 Rate Blood Pressure 134/92 114/66 O2 Sat by Pulse 100 97 Oximetry Medical Decision Making - Lab Data Result diagrams: 10/03/19 07:54 10/03/19 07:54 Lab Results 10/02/19 10/02/19 Range/Units 20:44 20:47 Urine HCG, Qual Not Detected (Not Detectd) Urine Opiates Screen Not Detected (NotDetected) Ur Oxycodone Screen Not Detected (NotDetected) Urine Methadone Screen Not Detected (NotDetected) Ur Propoxyphene Screen Not Detected (NotDetected) Ur Barbiturates Screen Not Detected (NotDetected) U Tricyclic Antidepress Not Detected (NotDetected) Ur Phencyclidine Scrn Not Detected (NotDetected) Ur Amphetamines Screen Not Detected (NotDetected) U Methamphetamines Scrn Not Detected (NotDetected) U Benzodiazepines Scrn Not Detected (NotDetected) Urine Cocaine Screen Not Detected (NotDetected) U Marijuana (THC) Screen Detected H (NotDetected) Disposition Clinical Impression: Suicidal behavior Disposition: ADMITTED IP TO THIS [facility] Condition: Stable Decision Time: 22:46
[2019-10-02 21:21] LABS: Amphetamine Screen,Urine Not Detected (NotDetected); Barbiturate Screen,Urine Not Detected (NotDetected); Benzodiazepines Screen,Urine Not Detected (NotDetected); Cocaine Screen,Urine Not Detected (NotDetected); Methadone Screen, Urine Not Detected (NotDetected); Opiate Screen,Urine Not Detected (NotDetected); Oxycodone Screen, Urine Not Detected (NotDetected); Phencyclidine Screen,Urine Not Detected (NotDetected); Tricyclic Antidepressant,Urine Not Detected (NotDetected); Urn Cannabinoid Scrn Detected (NotDetected)
[2019-10-02] MEDS ORDERED: LORazepam 1 MG TAB PO STA (22:31)
[2019-10-02] MEDS ORDERED: MAG HYDROX/AL HYDROX/SIMETH 30 ML CUP PO PRN (22:37)
[2019-10-03 00:31] LABS: Appearance,Urine Cloudy (Clear); Bacteria,Urine Rare /hpf; Bilirubin,Urine Negative (Negative); Blood,Urine Negative (Negative); Color,Urine Yellow; Glucose,Urine (UA) Negative (Negative); Ketones,Urine Negative (Negative); Leukocyte Esterase,Urine Trace (Negative); Mucus,Urine Rare /hpf; Nitrite,Urine Negative (Negative); Protein,Urine Negative (Negative); RBC,Urine 2 /hpf (0-5); Squamous Epithelial Cell,Urine 32 /hpf (0-4); Urobilinogen,Urine <2.0 mg/dL (<2.0); WBC,Urine 2 /hpf (0-5)
[2019-10-03 08:36] LABS: ALT 21 U/L (4-34); AST 21 U/L (14-36); African American GFR (CKD) >90 (>60 ml/min/1.73 sqM); Albumin 3.6 g/dL (3.5-5.0); Alkaline Phosphatase 46 U/L (38-126); Anion Gap 7 mmol/L; Blood Urea Nitrogen 13 mg/dL (7-17); Carbon Dioxide 19 mmol/L (22-30); Chloride 111 mmol/L (98-107); Cholesterol 164 mg/dL (<200); Glucose 101 mg/dL (74-99); HDL Cholesterol 48 mg/dL (40-60); LDL Cholesterol,Calculated 97 mg/dL (0-99); Non-African American GFR(CKD) >90 (>60 ml/min/1.73 sqM); Potassium 4.6 mmol/L (3.5-5.1); Sodium 137 mmol/L (137-145); Total Bilirubin 0.1 mg/dL (0.2-1.3); Total Protein 6.4 g/dL (6.3-8.2); Triglycerides 97 mg/dL (<150)
[2019-10-03 08:45] LABS: Basophils % (A) 1 %; Eosinophils # (A) 0.2 k/uL (0-0.7); Eosinophils % (A) 3 %; HCT 39.6 % (34.0-46.0); HGB 12.5 gm/dL (11.4-16.0); Lymphocytes # (A) 2.5 k/uL (1.0-4.8); Lymphocytes % (A) 41 %; MCH 29.2 pg (25.0-35.0); MCHC 31.7 g/dL (31.0-37.0); MCV 92.1 fL (80.0-100.0); Mean Platelet Volume 9.1; Monocytes # (A) 0.4 k/uL (0-1.0); Monocytes % (A) 6 %; Neutrophils # (A) 2.8 k/uL (1.3-7.7); Neutrophils % (A) 47 %; Platelet Count 205 k/uL (150-450); RDW 12.9 % (11.5-15.5); WBC 6.1 k/uL (3.8-10.6)
[2019-10-03] MEDS ORDERED: PROPRANOLOL 10 MG TAB PO SCH (09:00)
[2019-10-03] MEDS ORDERED: CITALOPRAM HYDROBROMIDE 20 MG TAB PO SCH (09:00)
[2019-10-03] MEDS: buPROPion XL 150 MG TAB.ER.24H PO SCH (09:19)
[2019-10-03] MEDS: NICOTINE 14MG/24HR PATCH TRANSDERM SCH (09:20)
[2019-10-03] MEDS: lamoTRIgine 100 MG TAB PO SCH ×2 (09:20→20:49)
[2019-10-03] MEDS: LORazepam 1 MG TAB PO PRN ×3 (09:54→20:52)
[2019-10-03] MEDS: fluPHENAZine DECANOATE 25 MG/ML 5ML MDV IM SCH (10:02)
--- NOTE | 2019-10-03 11:23 | P.CONS ---
History of Present Illness - Reason for Consult Consult date: 10/03/19 - History of Present Illness The patient is a 39-year-old female with a PMH of schizophrenia and bipolar disorder who presented to the ED with complaints of depression and suicidal ideation. Patient had reported in the ED that she was hearing voices which are telling her to hurt herself. The patient was admitted to the mental health unit where she was seen and evaluated on 10/03. She noted feeling better since admission. She reported no additional past medical history and reported taking only her psychiatric medications. Denied taking anything [id number]. She denied any additional complaints as well. She denied chest pain, shortness of breath, nausea, vomiting, fever, chills, or abdominal pain. She underwent an extensive evaluation in the emergency room . Urine toxicology positive for marijuana, WBC count 6.1, hemoglobin 12.5, platelets 25, sodium 137, potassium 4.6, BUN 13, creatinine 0.67, and TSH 2.77. Review of Systems Pertinent positives and negatives as discussed in HPI, a complete review of systems was performed and all other systems are negative. Past Medical History Past Medical History: Cancer, Pneumonia Additional Past Medical History / Comment(s): Frequent abcess on external vagina, UTI, cervical cancer with leap surgery History of Any Multi-Drug Resistant Organisms: None Reported Past Surgical History: Appendectomy, Uterine Ablation Additional Past Surgical History / Comment(s): LEAP about 8yr ago, Past Anesthesia/Blood Transfusion Reactions: No Reported Reaction Past Psychological History: Anxiety, Bipolar, Schizoaffective Disorder, Schizophrenia Smoking Status: Current every day smoker Past Alcohol Use History: Rare Additional Past Alcohol Use History / Comment(s): Pt started [employer] in 1992 and is a ppd smoker. - Past Family History Mother Family Medical History: No Reported History Additional Family Medical History / Comment(s): Mother is healthy Father Additional Family Medical History / Comment(s): Pt states father is and she does not know cause of , Sister(s) Additional Family Medical History / Comment(s): Pt's twin sister has schizoaffective disorder. Medications and Allergies Home Medications Medication Instructions Recorded Confirmed Type Propranolol HCl 10 mg PO TID 30 Days #90 tablet 08/23/18 10/03/19 Rx Citalopram Hydrobromide [CeleXA] 40 mg PO DAILY 10/02/19 10/03/19 History Fluphenazine Deconoate 25mg/1ml Oil 50 mg IM Q7D 10/02/19 10/03/19 History buPROPion XL [Wellbutrin Xl] 150 mg PO DAILY 10/02/19 10/03/19 History lamoTRIgine [LaMICtal] 200 mg PO DAILY 10/02/19 10/03/19 History Allergies Allergy/AdvReac Type Severity Reaction Status Date / Time sulfamethoxazole Allergy Swelling Verified 10/03/19 00:04 [From Bactrim] trimethoprim [From Bactrim] Allergy Swelling Verified 10/03/19 00:04 cottonwood Allergy Swelling Uncoded 10/03/19 00:04 Physical Exam Vitals: Vital Signs Temp Pulse Pulse Pulse Resp BP BP 10/03/19 09:24 104 H 16 112/66 10/03/19 07:07 98.3 F 78 14 10/02/19 23:18 98.6 F 76 14 10/02/19 22:42 98.7 F 77 20 114/66 10/02/19 20:32 98.2 F 78 134/92 BP Pulse Ox 10/03/19 09:24 10/03/19 07:07 103/56 10/02/19 23:18 119/75 99 10/02/19 22:42 97 10/02/19 20:32 100 Intake and Output 10/02/19 10/03/19 10/03/19 22:59 06:59 14:59 Other: Weight 72.212 kg 70.902 kg General: non toxic, no distress, appears at stated age, normal weight Derm: no unusual rashes/lesions no unusual ecchymoses, warm, dry Head: atraumatic, normocephalic, symmetric Eyes: EOMI, no lid lag, anicteric sclera, pupils equal round reactive to light ENT: Nose and ears atraumatic, no thrush, no pharyngeal erythema Neck: No thyromegaly, no cervical lymphadenopathy, trachea midline, supple Mouth: no lip lesion, mucus membranes moist Cardiovascular: S1S2 reg, no murmur, positive posterior tibial pulse bilateral, no edema, capillary refill less than 2 seconds Lungs: CTA bilateral, no rhonchi, no rales , no accessory muscle use Abdominal: soft, nontender to palpation, no guarding, no appreciable organomegaly, normal bowel sounds Ext: no gross muscle atrophy, muscle strength 5 out of 5 in all 4 extremities grossly, no contractures, Neuro: CN II-XI grossly intact, light touch intact all 4 extremities, finger to nose within normal limits, Psych: Alert, oriented Results CBC & Chem 7: 10/03/19 07:54 10/03/19 07:54 Labs: Abnormal Lab Results - Last 24 Hours (Table) 10/02/19 10/02/19 10/03/19 Range/Units 20:47 23:44 07:54 Chloride 111 H (98-107) mmol/L Carbon Dioxide 19 L (22-30) mmol/L Glucose 101 H (74-99) mg/dL Total Bilirubin 0.1 L (0.2-1.3) mg/dL Urine Appearance Cloudy H (Clear) Ur Leukocyte Esterase Trace H (Negative) Ur Squamous Epith Cells 32 H (0-4) /hpf Urine Bacteria Rare H (None) /hpf Urine Mucus Rare H (None) /hpf U Marijuana (THC) Screen Detected H (NotDetected) Assessment and Plan Plan: Depression with suicidal ideation -As per psychiatry Marijuana abuse -Advised on importance of cessation Thank you for allowing us to participate in the care of this patient. We will follow peripherally. Do not hesitate to contact us with questions. Someone can be reached from the [facility] hospitalist group at all hours of the day at [phone].
[2019-10-03 14:24] LABS: Hemoglobin A1C 5.6 % (4.0-6.0)
--- NOTE | 2019-10-03 15:34 | P.HP ---
Psychiatric H&P - . H&P Date: 10/03/19 History & Physical: IDENTIFYING DATA: The patient is a 39-year-old single female who is well-established diagnosis of a schizoaffective disorder. She presented to the psychiatric unit voluntarily with complaint that she has not taken her medicat ion one week was having increasing anxiety, restlessness, irritability and suicidal thoughts. HISTORY OF PRESENT ILLNESS: I interviewed the patient, reviewed the medical record and interviewed the most recent progress notes from [facility]. She was able to explain the reason for not taking her medications for the last week. She complained that she was markedly distressed, restless and irritable. She was smoking "so many cigarettes" that she was "making myself sick." Although the progress note described a chronic history of auditory hallucinations she minimized the severity of the hallucinatory experience. When asked about the auditory hallucination she replied that they were "not too bad". She described vague suicidal feelings but denied intent or plan. She described some symptoms of depression including feelings of hopelessness and helplessness but denied such symptoms as anhedonia, anergy or impaired concentration. She described subjective anxiety but denied experiencing worries about any particular issues or concerns. She feels restless and keyed up denied feeling fatigued or having muscle tension or sleep problems. Other than the increased irritability she denied other symptoms of sujata or hypomania such as grandiosity, decreased need for sleep, talkativeness, flight of ideas or impairments in judgment reflective by increased spending or sexual indiscretions. She denied experiencing periods of increased anxiety concerns with a panic attack. She smokes marijuana but ideas for drugs get high, help her sleep or change her mood. She denied drinking alcohol. Her BAT on admission to the was 0 and her UDS was positive for marijuana. PAST PSYCHIATRIC HISTORY: She has a long and established history of a schizoaffective disorder with multiple psychiatric hospitalizations. She estimates that she has been hospitalized at least 10 times to different facilities including 6 this facility in 2 to the [facility]. Her last admission to this unit was in August 2018 and she was discharged with diagnosis of a schizoaffective disorder. She is engaged with [facility] for the diagnoses of schizoaffective disorder and cannabis use. Her medications include Celexa 40 mg daily, fluphenazine decanoate 50 mg IM weekly, Lamictal 200 mg daily and Wellbutrin XL 150 mg daily. PAST MEDICAL HISTORY: Cervical cancer well with LEEP surgery ALLERGIES: Sulfamethoxazole, trimethoprim SUBSTANCE USE HISTORY: She has infrequent use of alcohol. She smokes marijuana but was vague about the amount and frequency. She has a history of crack cocaine use but has been abstinent for the last 11 years. She denied use of other drugs to get high, help her sleep or change her mood. FAMILY PSYCHIATRIC/SUBSTANCE USE HISTORY: She has an identical twin sister who was also has a diagnosis of schizoaffective disorder. LEGAL HISTORY: She has had multiple legal problems including 3 domestic violence offenses, assault with a dangerous weapon, interfering with much chronic communication causing injury, and attempted controlled substance possession. She has served 4 months in [facility]. She is currently not on probation, parole or has pending charges. SOCIAL HISTORY: She was raised by her mother. She never knew her father. She has 1 brother and a twin sister also has a severe persistent mental illness. She left school in 10th grade for reasons I suggested she either has a developmental disability or learning disability. She is unemployed and receives social security disability. She is single and has no children. She resides alone in her own apartment. MENTAL STATUS EXAM: She presented as a disheveled appearing 39-year-old female who was pleasant on approach. She made eye contact and appeared to attend to the interview. Her hair looked unwashed. She had no prominent physical maladies. She had a blunted facial expression. She is alert and oriented to person place and time. She showed slight psychomotor retardation but no abnormal movements. Her speech was spontaneous with decreased rate and rhythm. Her affect was blunted but stable and appropriate. She describes suicidal ideation without wishes. She denied homicidal ideation. She described feelings of helplessness but denied feeling hopeless or worthless. She did not express clear ideas reference, parent ideation or delusional beliefs. Her thinking was concrete and she had poverty of content of speech. She described auditory hallucinations but did not appear to be responding to internal stimuli during our interview. STRENGTHS: Good physical health, stable income, stable housing, engagement with community mental health WEAKNESSES: Chronic and persistent severe mental illness, marijuana use, history of poor compliance with psychiatric treatment IMPRESSION: She is a 31-year-old single female who has a history of a schizoaffective disorder. She presented to [facility] voluntarily with complaints of suicidal ideation, increased irritability, anxiety and restlessness. She had been noncompliant with treatment has not taken her oral medications in the last 7 days. She minimizes severity of her chronic auditory hallucinations. She speech rate inpatient basis with combination of psychopharmacology and multimodal therapy PRINCIPLE DIAGNOSIS: Schizoaffective disorder bipolar type, marijuana use dis order, poor compliance with psychiatric treatment RECOMMENDATION: Admit to the psychiatric unit. Safety precautions. Consult medicine service for initial physical exam and medical history. custodial maintenance worker completed initial psychosocial assessment coordinate discharge and aftercare. Continue Prolixin 50 mg IM every 2 weeks. We titrate Lamictal to 200 mg daily. Continue Wellbutrin 150 mg daily. Taper and discontinue Celexa and Inderal. Evaluate clinical status response to treatment daily basis. Encourage participation in therapeutic groups and activities. Allergies Allergy/AdvReac Type Severity Reaction Status Date / Time sulfamethoxazole Allergy Swelling Verified 10/03/19 00:04 [From Bactrim] trimethoprim [From Bactrim] Allergy Swelling Verified 10/03/19 00:04 [place] Allergy Swelling Uncoded 10/03/19 00:04 Vital Signs Temp 98.3 F 10/03/19 07:07 Pulse 104 H 10/03/19 09:24 Resp 16 10/03/19 09:24 BP 112/66 10/03/19 09:24 Pulse Ox 99 10/02/19 23:18 Intake & Output 10/02/19 10/03/19 10/03/19 18:59 06:59 18:59 Weight 70.902 kg Laboratory Last Values WBC 6.1 k/uL (3.8-10.6) 10/03/19 07:54 RBC 4.30 m/uL (3.80-5.40) 10/03/19 07:54 Hgb 12.5 gm/dL (11.4-16.0) 10/03/19 07:54 Hct 39.6 % (34.0-46.0) 10/03/19 07:54 MCV 92.1 fL (80.0-100.0) 10/03/19 07:54 MCH 29.2 pg (25.0-35.0) 10/03/19 07:54 MCHC 31.7 g/dL (31.0-37.0) 10/03/19 07:54 RDW 12.9 % (11.5-15.5) 10/03/19 07:54 Plt Count 205 k/uL (150-450) 10/03/19 07:54 Neutrophils % 47 % 10/03/19 07:54 Lymphocytes % 41 % 10/03/19 07:54 Monocytes % 6 % 10/03/19 07:54 Eosinophils % 3 % 10/03/19 07:54 Basophils % 1 % 10/03/19 07:54 Neutrophils # 2.8 k/uL (1.3-7.7) 10/03/19 07:54 Lymphocytes # 2.5 k/uL (1.0-4.8) 10/03/19 07:54 Monocytes # 0.4 k/uL (0-1.0) 10/03/19 07:54 Eosinophils # 0.2 k/uL (0-0.7) 10/03/19 07:54 Basophils # 0.0 k/uL (0-0.2) 10/03/19 07:54 Sodium 137 mmol/L (137-145) 10/03/19 07:54 Potassium 4.6 mmol/L (3.5-5.1) 10/03/19 07:54 Chloride 111 mmol/L (98-107) H 10/03/19 07:54 Carbon Dioxide 19 mmol/L (22-30) L 10/03/19 07:54 Anion Gap 7 mmol/L 10/03/19 07:54 BUN 13 mg/dL (7-17) 10/03/19 07:54 Creatinine 0.67 mg/dL (0.52-1.04) 10/03/19 07:54 Est GFR (CKD-EPI)AfAm >90 (>60 ml/min/1.73 sqM) 10/03/19 07:54 Est GFR (CKD-EPI)NonAf >90 (>60 ml/min/1.73 sqM) 10/03/19 07:54 Glucose 101 mg/dL (74-99) H 10/03/19 07:54 Calcium 9.0 mg/dL (8.4-10.2) 10/03/19 07:54 Total Bilirubin 0.1 mg/dL (0.2-1.3) L 10/03/19 07:54 AST 21 U/L (14-36) 10/03/19 07:54 ALT 21 U/L (4-34) 10/03/19 07:54 Alkaline Phosphatase 46 U/L (38-126) 10/03/19 07:54 Total Protein 6.4 g/dL (6.3-8.2) 10/03/19 07:54 Albumin 3.6 g/dL (3.5-5.0) 10/03/19 07:54 Triglycerides 97 mg/dL (<150) 10/03/19 07:54 Cholesterol 164 mg/dL (<200) 10/03/19 07:54 LDL Cholesterol, Calc 97 mg/dL (0-99) 10/03/19 07:54 HDL Cholesterol 48 mg/dL (40-60) 10/03/19 07:54 TSH 2.770 mIU/L (0.465-4.680) 10/03/19 07:54 Urine Color Yellow 10/02/19 23:44 Urine Appearance Cloudy (Clear) H 10/02/19 23:44 Urine pH 6.0 (5.0-8.0) 10/02/19 23:44 Ur Specific [place] 1.020 (1.001-1.035) 10/02/19 23:44 Urine Protein Negative (Negative) 10/02/19 23:44 Urine Glucose (UA) Negative (Negative) 10/02/19 23:44 Urine Ketones Negative (Negative) 10/02/19 23:44 Urine Blood Negative (Negative) 10/02/19 23:44 Urine Nitrite Negative (Negative) 10/02/19 23:44 Urine Bilirubin Negative (Negative) 10/02/19 23:44 Urine Urobilinogen <2.0 mg/dL (<2.0) 10/02/19 23:44 Ur Leukocyte Esterase Trace (Negative) H 10/02/19 23:44 Urine RBC 2 /hpf (0-5) 10/02/19 23:44 Urine WBC 2 /hpf (0-5) 10/02/19 23:44 Ur Squamous Epith Cells 32 /hpf (0-4) H 10/02/19 23:44 Urine Bacteria Rare /hpf (None) H 10/02/19 23:44 Urine Mucus Rare /hpf (None) H 10/02/19 23:44 Urine HCG, Qual Not Detected (Not Detectd) 10/02/19 20:44 Urine Opiates Screen Not Detected (NotDetected) 10/02/19 20:47 Ur Oxycodone Screen Not Detected (NotDetected) 10/02/19 20:47 Urine Methadone Screen Not Detected (NotDetected) 10/02/19 20:47 Ur Propoxyphene Screen Not Detected (NotDetected) 10/02/19 20:47 Ur Barbiturates Screen Not Detected (NotDetected) 10/02/19 20:47 U Tricyclic Antidepress Not Detected (NotDetected) 10/02/19 20:47 Ur Phencyclidine Scrn Not Detected (NotDetected) 10/02/19 20:47 Ur Amphetamines Screen Not Detected (NotDetected) 10/02/19 20:47 U Methamphetamines Scrn Not Detected (NotDetected) 10/02/19 20:47 U Benzodiazepines Scrn Not Detected (NotDetected) 10/02/19 20:47 Urine Cocaine Screen Not Detected (NotDetected) 10/02/19 20:47 U Marijuana (THC) Screen Detected (NotDetected) H 10/02/19 20:47 10/03/19 15:05
[2019-10-03] MEDS: PROPRANOLOL 10 MG TAB PO SCH (20:49)
[2019-10-04] MEDS: buPROPion XL 150 MG TAB.ER.24H PO SCH (09:51)
[2019-10-04] MEDS: NICOTINE 14MG/24HR PATCH TRANSDERM SCH (09:51)
[2019-10-04] MEDS: lamoTRIgine 100 MG TAB PO SCH (09:52)
[2019-10-04] MEDS: PROPRANOLOL 10 MG TAB PO SCH ×2 (09:52→20:08)
[2019-10-04] MEDS: CITALOPRAM HYDROBROMIDE 20 MG TAB PO SCH (09:52)
[2019-10-04] MEDS: LORazepam 1 MG TAB PO PRN ×3 (09:54→23:44)
[2019-10-04] MEDS: ACETAMINOPHEN TAB 325 MG TAB PO PRN (09:54)
--- NOTE | 2019-10-04 14:21 | P.PN ---
Progress Note - Text Progress Note Date: 10/04/19 Over history: Patient is seen in cross coverage today. She reports that she is feeling much better today. She relays that she got her Prolixin Decanoate yesterday. She does describe still having some occasional auditory hallucinations today but she is able to ignore it and realizes that is not real. She describes that her anxiety has gotten much benefit from the Ativan when necessary. Mental status exam: She is alert and cooperative with the interview. Her speech is fluent, not rapid or pressured. Her thought processes are organized. Her mood seems to be described as better today. She does not verbalize any thoughts of harm to self or others. She describes some occasional auditory hallucinations which she is able to ignore and realizes that they're not real. She does not show any agitation. Plan: Patient will be maintained on current psychotropic medication regimen. Continue to monitor for any medication side effects and monitor her ongoing response to treatment.
[2019-10-04] MEDS: lamoTRIgine 25 MG TAB PO SCH (20:09)
[2019-10-05] MEDS: buPROPion XL 150 MG TAB.ER.24H PO SCH (10:18)
[2019-10-05] MEDS: NICOTINE 14MG/24HR PATCH TRANSDERM SCH (10:18)
[2019-10-05] MEDS: CITALOPRAM HYDROBROMIDE 20 MG TAB PO SCH (10:19)
[2019-10-05] MEDS: PROPRANOLOL 10 MG TAB PO SCH ×2 (10:19→20:11)
[2019-10-05] MEDS: lamoTRIgine 25 MG TAB PO SCH ×2 (10:19→20:11)
[2019-10-05] MEDS: LORazepam 1 MG TAB PO PRN ×2 (12:12→20:12)
[2019-10-05] MEDS: ACETAMINOPHEN TAB 325 MG TAB PO PRN (12:13)
--- NOTE | 2019-10-05 12:13 | P.PN ---
Progress Note - Text Progress Note Date: 10/05/19 Interval history: Patient reports that it took her a while to fall asleep but she slept at least 7 hours. She does not seem to voice any adverse psychotropic medication side effects. She describes that her anxiety is under much better control. She does not seem to voice any adverse psychotropic medication side effects. Mental status exam: She is alert and cooperative with the interview. She describes that her mood is good. She relays that her anxiety is improved. She does not verbalize any thoughts of harm to self or others. No evidence of active psychosis or agitation. Plan: Patient will be maintained on current psychotropic medication regimen. Continue to monitor for any medication side effects and monitor her ongoing response to treatment.
[2019-10-06] MEDS: PROPRANOLOL 10 MG TAB PO SCH ×2 (09:25→20:58)
[2019-10-06] MEDS: buPROPion XL 150 MG TAB.ER.24H PO SCH (09:25)
[2019-10-06] MEDS: lamoTRIgine 25 MG TAB PO SCH ×2 (09:26→20:58)
[2019-10-06] MEDS: CITALOPRAM HYDROBROMIDE 20 MG TAB PO SCH (09:26)
[2019-10-06] MEDS: NICOTINE 14MG/24HR PATCH TRANSDERM SCH (09:26)
[2019-10-06] MEDS: LORazepam 1 MG TAB PO PRN ×2 (09:28→16:28)
[2019-10-06] MEDS: ACETAMINOPHEN TAB 325 MG TAB PO PRN (10:39)
--- NOTE | 2019-10-06 13:03 | P.PN ---
Subjective Progress Note Date: 10/06/19 Principal diagnosis: Schizoaffective disorder bipolar type, marijuana use disorder, poor compliance with psychiatric treatment I reviewed the medical record, interviewed the patient and discussed her treatment and treatment plan during team meeting. She would not get out of bed for the interview. She complained that she is distressed and overwhelmed because her auditory hallucinations have worsened. She stated that the "voices" were critical and condemning. There are telling her that she is "ugly" and that she is "worthless". She denied that they were commanding and she denied that she was having thoughts of self-harm. Objective - Vital Signs Vital signs: Vital Signs Temp 98.1 F 10/05/19 10:15 Pulse 97 10/06/19 09:29 Resp 16 10/05/19 13:14 BP 133/67 10/06/19 09:29 Pulse Ox 96 10/05/19 10:15 - Exam She presented as a disheveled 39-year-old female who is laying in bed. She pulled her blankets over her head for the interview but would not get out of bed for the interview. She appeared distressed and internally preoccupied. Her speech was not spontaneous and had decreased rate and rhythm. He was markedly distress, paranoid and anxious. She denied suicidal ideation and wishes. She expressed feelings of hopelessness, helplessness and worthlessness. She ruminated about the intensity and severity of the auditory hallucinations. Her thinking was concrete. Associations appeared coherent. She described auditory hallucinations and appeared to be responding to internal stimuli. - Labs CBC & Chem 7: 10/03/19 07:54 10/03/19 07:54 Assessment and Plan Assessment: She is severely and chronically mentally ill. She is describing continued distressing auditory hallucinations. Plan: Continue Prolixin Decanoate 50 mg IM every 7 days along with the current dose of Wellbutrin and Lamictal. Continue taper of Celexa and Inderal. Evaluate clinical status and response to treatment daily basis. Encourage participation in therapeutic groups and activities as tolerated.
[2019-10-06] MEDS: ZIPRASIDONE 20 MG VIAL IM PRN (21:23)
[2019-10-07] MEDS ORDERED: PROPRANOLOL 10 MG TAB PO SCH (09:00)
[2019-10-07] MEDS: PROPRANOLOL 10 MG TAB PO SCH ×2 (12:01→21:23)
[2019-10-07] MEDS: lamoTRIgine 25 MG TAB PO SCH ×2 (12:01→21:23)
[2019-10-07] MEDS: buPROPion XL 150 MG TAB.ER.24H PO SCH (12:01)
[2019-10-07] MEDS: NICOTINE 14MG/24HR PATCH TRANSDERM SCH (12:01)
[2019-10-07] MEDS: LORazepam 1 MG TAB PO PRN ×2 (12:03→19:54)
--- NOTE | 2019-10-07 12:18 | P.PN ---
Subjective Progress Note Date: 10/07/19 Principal diagnosis: Schizoaffective disorder bipolar type, marijuana use disorder, poor compliance with psychiatric treatment I reviewed the medical record, interviewed the patient and discussed her treatment and treatment plan during team meeting. She again would not get out o f bed for the interview. She complained of persistent, distressing, intrusive and derogatory auditory hallucinations. She received 1 mg Ativan by mouth and 20 mg of Geodon IM yesterday evening for agitation and complaints of increasing auditory hallucinations. She comes out of her room for meals but is not participating in therapeutic groups and activities. Objective - Vital Signs Vital signs: Vital Signs Temp 98.1 F 10/07/19 00:00 Pulse 81 10/07/19 00:00 Resp 18 10/07/19 00:00 BP 119/58 10/07/19 00:00 Pulse Ox 96 10/05/19 10:15 - Exam She presented as a disheveled 39-year-old female who is laying in bed. She pulled her blankets over her head for the interview but would not get out of bed for the interview. She appeared distressed and internally preoccupied. Her speech was not spontaneous and had decreased rate and rhythm. He was markedly distressed, paranoid and anxious. She denied suicidal ideation and wishes. She expressed feelings of hopelessness, helplessness and worthlessness. She ruminated about the intensity and severity of the auditory hallucinations. Her thinking was concrete. Associations appeared coherent. She described auditory hallucinations and appeared to be responding to internal stimuli. - Labs CBC & Chem 7: 10/03/19 07:54 10/03/19 07:54 Assessment and Plan Assessment: She is severely and chronically mentally ill. She is describing continued distressing auditory hallucinations. Plan: Continue Prolixin Decanoate 50 mg IM every 7 days along with the current dose of Wellbutrin and Lamictal. Continue taper of Celexa and Inderal. Evaluate clinical status and response to treatment daily basis. Encourage participation in therapeutic groups and activities as tolerated.
[2019-10-07] MEDS: ACETAMINOPHEN TAB 325 MG TAB PO PRN ×3 (13:42→23:43)
[2019-10-07] MEDS: MAGNESIUM HYDROXIDE 2,400 MG/10 ML CUP PO PRN ×2 (20:41→23:43)
[2019-10-07] MEDS: ZIPRASIDONE 20 MG VIAL IM PRN (22:52)
[2019-10-08] MEDS: NICOTINE 14MG/24HR PATCH TRANSDERM SCH (08:16)
[2019-10-08] MEDS: lamoTRIgine 25 MG TAB PO SCH ×2 (08:16→20:39)
[2019-10-08] MEDS: buPROPion XL 150 MG TAB.ER.24H PO SCH (08:16)
[2019-10-08] MEDS: PROPRANOLOL 10 MG TAB PO SCH ×2 (08:17→20:39)
[2019-10-08] MEDS: LORazepam 1 MG TAB PO PRN ×3 (10:23→22:47)
[2019-10-08] MEDS: MAGNESIUM HYDROXIDE 2,400 MG/10 ML CUP PO PRN (11:01)
--- NOTE | 2019-10-08 14:31 | P.PN ---
Subjective Progress Note Date: 10/08/19 Principal diagnosis: Schizoaffective disorder bipolar type, marijuana use disorder, poor compliance with psychiatric treatment I reviewed the medical record, interviewed the patient and discussed her treatment and treatment plan during team meeting. She was up and about the unit today. She was pleasant on approach and denied problems other family subjective anxiety. She requested to be discharged with a prescription for a benzodiazepine. When I denied her request she asked to restart Neurontin. I reviewed her record and she had been prescribed up to 1600 mg and Neurontin daily apparently for treatment of anxiety symptoms. She denied feeling depressed or having thoughts of or suicide. When asked about hallucinations she replied that the "voices were not bad." She denied experiencing command hallucinations or hallucinations that were derogatory are denigrating. Objective - Vital Signs Vital signs: Vital Signs Temp 98.1 F 10/08/19 06:18 Pulse 72 10/08/19 06:18 Resp 14 10/08/19 06:18 BP 93/55 10/08/19 06:18 Pulse Ox 96 10/05/19 10:15 - Exam She presented as a casually groomed 39-year-old female who was pleasant on approach. She made eye contact and attended the interview. She had facial acne but no prominent physical abnormalities. She had a blunted but bright facial expression. She is alert and oriented to person, place and time. She showed blood debility psychomotor activity she had a slow but steady gait. Her speech was spontaneous with normal rate, volume and rhythm. Her affect was blunted but stable and appropriate. She smiled intermittently during interview. She denied suicidal ideation or wishes. She denied homicidal ideation. She denied feeling hopeless, helpless or worthless. She did not express ideas reference, paranoid ideation or delusions. Her thinking was concrete but her associations were coherent and logical. She described experiencing "voices" but did not appear to be responding to internal stimuli. - Labs CBC & Chem 7: 10/03/19 07:54 10/03/19 07:54 Assessment and Plan Assessment: She is more alert, active engaged. She is complaining of subjective anxiety. Plan: Plan for discharge on 10/09/2019. Limit her use of benzodiazepines. Begin gabapentin 400 mg daily for complaints of subjective anxiety. Continue Prolixin Decanoate 50 mg IM every 7 days. Continue Wellbutrin XL 150 mg daily. Discontinue Inderal on 10/09/2019. Encourage participation in therapeutic groups and activities. Evaluate clinical status response to treatment daily basis.
[2019-10-09] MEDS ORDERED: MELATONIN 3 MG TABLET PO STA (00:01)
[2019-10-09] MEDS: ZIPRASIDONE 20 MG VIAL IM PRN (01:13)
[2019-10-09] MEDS: GABAPENTIN 400 MG CAP PO SCH (10:19)
[2019-10-09] MEDS: PROPRANOLOL 10 MG TAB PO SCH ×2 (10:19→21:24)
[2019-10-09] MEDS: buPROPion XL 150 MG TAB.ER.24H PO SCH (10:19)
[2019-10-09] MEDS: NICOTINE 14MG/24HR PATCH TRANSDERM SCH (10:19)
[2019-10-09] MEDS: lamoTRIgine 25 MG TAB PO SCH ×2 (10:19→21:24)
--- NOTE | 2019-10-09 12:12 | P.PN ---
Subjective Progress Note Date: 10/09/19 Principal diagnosis: Schizoaffective disorder bipolar type, marijuana use disorder, poor compliance with psychiatric treatment I reviewed the medical record, interviewed the patient and discussed her treatment and treatment plan during team meeting. She received 20 mg of Geodon IM yesterday For agitation. Staff report that became acutely distraught following a conversation with her mother. This morning she was difficult to engage. She complained of fatigue and repeatedly requested to "go back to bed." In response to questions about auditory hallucination she replied "yes". Objective - Vital Signs Vital signs: Vital Signs Temp 98.5 F 10/09/19 10:18 Pulse 93 10/09/19 10:18 Resp 20 10/09/19 10:18 BP 115/60 10/09/19 10:18 Pulse Ox 96 10/05/19 10:15 - Exam She appeared to angry and sedated. She did not make eye contact. She appeared withdrawn and lethargic. She did not appear to be responding to internal stimuli. - Labs CBC & Chem 7: 10/03/19 07:54 10/03/19 07:54 Assessment and Plan Assessment: Her mood and behaviors changed dramatically from yesterday. She is withdrawn, angry and uncooperative. Plan: imit her use of benzodiazepines. Continue gabapentin 400 mg daily for complaints of subjective anxiety. Continue Prolixin Decanoate 50 mg IM every 7 days. Continue Wellbutrin XL 150 mg daily. Encourage participation in therapeutic groups and activities. Evaluate clinical status response to treatment daily basis. Reevaluate her on 07/11/2020.
[2019-10-09] MEDS: LORazepam 1 MG TAB PO PRN ×2 (15:00→22:49)
[2019-10-09 15:30] VITALS: BMI 25.9
[2019-10-10] MEDS ORDERED: MELATONIN 5 MG TABLET PO PRN (00:23)
[2019-10-10 06:54] VITALS: BP 95/57; PULSE 75; RESP 16; TEMP 98
[2019-10-10] MEDS: NICOTINE 14MG/24HR PATCH TRANSDERM SCH (10:17)
[2019-10-10] MEDS: buPROPion XL 150 MG TAB.ER.24H PO SCH (10:17)
[2019-10-10] MEDS: lamoTRIgine 25 MG TAB PO SCH (10:17)
[2019-10-10] MEDS: GABAPENTIN 400 MG CAP PO SCH (10:18)
[2019-10-10] MEDS: fluPHENAZine DECANOATE 25 MG/ML 5ML MDV IM SCH (10:20)
[2019-10-10] MEDS: LORazepam 1 MG TAB PO PRN (12:39)
[2019-10-10] MEDS: ACETAMINOPHEN TAB 325 MG TAB PO PRN (12:39)
--- NOTE | 2019-10-10 13:18 | P.DS ---
Providers Date of admission: 10/02/19 22:34 Attending physician: Adi Cardenas MD Consults: 10/02/19 22:37 Consult Physician Routine Consulting Provider: [facility] Consult Reason/Comments: H & P and medical care Do you want consulting provider notified?: Yes Primary care physician: [facility] Diagnosis(es) (1) Schizoaffective disorder, bipolar type Current Visit: No Status: Chronic Priority: High (2) Cannabis use disorder, mild, abuse Current Visit: Yes Status: Chronic Priority: Medium (3) Tobacco use disorder Current Visit: Yes Status: Acute Priority: Medium (4) Poor compliance with medication Current Visit: Yes Status: Chronic Priority: High Hospital Course: She is a 39-year-old single female who is well-established diagnosis of a schizoaffective disorder. She presented to the psychiatric unit voluntarily with complaint that she has not taken her medication one week was having increasing anxiety, restlessness, irritability and suicidal thoughts. She was able to explain the reason for not taking her medications for the last week. She complained that she was markedly distressed, restless and irritable. She was smoking "so many cigarettes" that she was "making myself sick." Although the progress note described a chronic history of auditory hallucinations she minimized the severity of the hallucinatory experience. When asked about the auditory hallucination she replied that they were "not too bad". She described vague suicidal feelings but denied intent or plan. She described some symptoms of depression including feelings of hopelessness and helplessness but denied such symptoms as anhedonia, anergy or impaired concentration. She described subjective anxiety but denied experiencing worries about any particular issues or concerns. She feels restless and keyed up denied feeling fatigued or having muscle tension or sleep problems. Other than the increased irritability she denied other symptoms of sujata or hyp omania such as grandiosity, decreased need for sleep, talkativeness, flight of ideas or impairments in judgment reflective by increased spending or sexual indiscretions. She denied experiencing periods of increased anxiety concerns with a panic attack. She smokes marijuana but ideas for drugs get high, help her sleep or change her mood. She denied drinking alcohol. Her BAT on admission to the was 0 and her UDS was positive for marijuana. She has a long and established history of a schizoaffective disorder with multiple psychiatric hospitalizations. She estimates that she has been hosp italized at least 10 times to different facilities including 6 this facility in 2 to the [facility]. Her last admission to this unit was in August 2018 and she was discharged with diagnosis of a schizoaffective disorder. She is engaged with [facility] for the diagnoses of schizoaffective disorder and cannabis use. Her medications include Celexa 40 mg daily, fluphenazine decanoate 50 mg IM weekly, Lamictal 200 mg daily and Wellbutrin XL 150 mg daily. We admitted her to the psychiatric unit under care of this personal lines underwriter. Provided a copy is a biopsychosocial assessment. The technical support consultant print color matcher completed initial physical exam and medical history. She does not have history of major medical problems. We prescribed Habitrol for her tobacco use disorder. We tapered and discontinued Inderal and Celexa continued her outpatient dose of Wellbutrin XL 150 mg daily, Prolixin Decanoate 50 mg IM every 7 days and melatonin 5 mg at bedtime. We began to titrate Lamictal 25 mg by mouth twice a day. She posed no management problem. She had episodes of behavioral dyscontrol following telephone conversations with her mother where she received both IM Geodon. She did not interact with staff or peers. She spent most of her time alone in bed. She did not participate in therapeutic groups or activities. She was unable to explain the reason for the hospitalization th roughout the admission but eventually dmitted to not taking her medication. At time of discharge she presented as a casually groomed 31-year-old female with bright blonde hair. She made eye contact and attended to the interview. She had a blunted facial expression. She showed psychomotor retardation but no abnormal movements. Her speech was not spontaneous but had normal rate and rhythm. Her affect was blunted but stable and appropriate. She denied suicidal ideation or wishes. She denied homicidal ideation. She denied feeling hopeless, helpless or worthless. She did not express ideas reference, paranoid ideation or delusions. Her thinking was concrete. Associations were coherent and logical. She denied hallucinations did not appear to be responding to internal stimuli. Patient Condition at Discharge: Stable Plan - Discharge Summary New Discharge Prescriptions: New Nicotine 14Mg/24Hr Patch [Habitrol] 1 patch TRANSDERM DAILY patch lamoTRIgine [LaMICtal] 25 mg PO BID #60 tab Melatonin 5 mg PO HS PRN #30 tablet PRN Reason: Insomnia Gabapentin [Neurontin] 400 mg PO DAILY #30 cap Continue buPROPion XL [Wellbutrin XL] 150 mg PO DAILY Fluphenazine Deconoate 25mg/1ml Oil 50 mg IM Q7D Discontinued Propranolol HCl 10 mg PO TID 30 Days #90 tablet lamoTRIgine [LaMICtal] 200 mg PO DAILY Citalopram Hydrobromide [CeleXA] 40 mg PO DAILY Discharge Medication List Fluphenazine Deconoate 25mg/1ml Oil 50 mg IM Q7D 10/02/19 [History] buPROPion XL [Wellbutrin XL] 150 mg PO DAILY 10/02/19 [History] Gabapentin [Neurontin] 400 mg PO DAILY #30 cap 10/10/19 [Rx] Melatonin 5 mg PO HS PRN #30 tablet 10/10/19 [Rx] Nicotine 14Mg/24Hr Patch [Habitrol] 1 patch TRANSDERM DAILY patch 10/10/19 [Rx] lamoTRIgine [LaMICtal] 25 mg PO BID #60 tab 10/10/19 [Rx] Follow up Appointment(s)/Referral(s): [facility] [Outside] - 10/13/19 1:00 pm (10-13-19 @ 1:00 with Zuly Sosa 10-21-19 @ 9:[address] Starks) [facility] - 1 Week Patient Instructions/Handouts: How to Stop Smoking (DC), Brief Psychotic Disorder (ED), Help Prevent Suicide (DC) Activity/Diet/Wound Care/Special Instructions: Activity and diet as tolerated. Avoid the use of street drugs and alcohol. Take all medications as prescribed. When you are in need of refills on your medications please contact your medical provider and/or outpatient psychiatrist to have this done. Please go to scheduled outpatient appointment for aftercare treatment. If symptoms return or become worse, call the crisis line at and/or go to the nearest emergency room for evaluation. Discharge Disposition: HOME SELF-CARE
== END 2019-10-10 15:15 | disposition home or self-care (01) | DRG 885 ==
LOC: EC 20:29 → 3MHU 22:34
PROVIDERS: ADMIT Psychiatry & Neurology Psychiatry; ATTEND Psychiatry & Neurology Psychiatry
DX: F25.0 Schizoaffective disorder, bipolar type (principal); R45.851 Suicidal ideations; F41.9 Anxiety disorder, unspecified; Z65.3 Problems related to other legal circumstances; F12.10 Cannabis abuse, uncomplicated; F17.210 Nicotine dependence, cigarettes, uncomplicated; Z71.51 Drug abuse counseling and surveillance of drug abuser; Z56.0 Unemployment, unspecified; Z88.2 Allergy status to sulfonamides; Z79.899 Other long term (current) drug therapy; Z85.41 Personal history of malignant neoplasm of cervix uteri; Z87.01 Personal history of pneumonia (recurrent); Z91.14 Patient's other noncompliance with medication regimen; Z91.19 Patient's noncompliance with other medical treatment and regimen
CPT/HCPCS: 80053; 80061; 80306; 81001; 81025; 82075; 83036; 84443; 85025; 99285

== ENCOUNTER 2019-10-16 18:51 | Emergency (ER) | payer MEDICARE, MEDICAID ==
[2019-10-16 19:15] VITALS: BP 115/84; PULSE 124; RESP 20; TEMP 98
[2019-10-16] MEDS ORDERED: KETOROLAC 60 MG/2 ML VIAL IM STA (21:04)
--- NOTE | 2019-10-16 21:10 | XR ---
PROCEDURE: XR lumbar spine - 3V DATE AND TIME: 10/16/2019 8:13 PM CLINICAL INDICATION: PHH; pain TECHNIQUE: Department protocol COMPARISON: None FINDINGS: There is no fracture or malalignment. There is evidence of mild and moderate facet osteoarthritis at several levels. No focal skeletal lesions. The soft tissues are unremarkable. IMPRESSION: NO ACUTE PROCESS.
--- NOTE | 2019-10-16 21:18 | ED ---
Back Pain HPI - General Chief Complaint: Back Pain/Injury Stated Complaint: Back pain Time Seen by Provider: 10/16/19 20:20 Source: patient, EMS Limitations: no limitations - History of Present Illness Initial Comments: Patient is a 39-year-old female presenting to emergency Department with complaints of low back pain. Patient states she has chronic low back pain but states that feels worse today. Patient states she was walking to the store when she noticed it flared up more. She denies any recent falls or trauma. She denies any fever, saddle paresthesias, bowel or bladder incontinence. She denies any other complaints at this time. - Related Data Home Medications Medication Instructions Recorded Confirmed Fluphenazine Deconoate 25mg/1ml Oil 50 mg IM Q7D 10/02/19 10/03/19 buPROPion XL [Wellbutrin XL] 150 mg PO DAILY 10/02/19 10/03/19 Previous Rx's Medication Instructions Recorded Gabapentin [Neurontin] 400 mg PO DAILY #30 cap 10/10/19 Melatonin 5 mg PO HS PRN #30 tablet 10/10/19 Nicotine 14Mg/24Hr Patch [Habitrol] 1 patch TRANSDERM DAILY patch 10/10/19 lamoTRIgine [LaMICtal] 25 mg PO BID #60 tab 10/10/19 Allergies Allergy/AdvReac Type Severity Reaction Status Date / Time sulfamethoxazole Allergy Swelling Verified 10/16/19 19:12 [From Bactrim] trimethoprim [From Bactrim] Allergy Swelling Verified 10/16/19 19:12 cottonwood Allergy Swelling Uncoded 10/16/19 19:12 Review of Systems ROS Statement: Those systems with pertinent positive or pertinent negative responses have been documented in the HPI. ROS Other: All systems not noted in ROS Statement are negative. Past Medical History Past Medical History: Cancer, Pneumonia Additional Past Medical History / Comment(s): Frequent abcess on external vagina, UTI, cervical cancer with leap surgery History of Any Multi-Drug Resistant Organisms: None Reported Past Surgical History: Appendectomy, Uterine Ablation Additional Past Surgical History / Comment(s): LEAP about 8yr ago, Past Anesthesia/Blood Transfusion Reactions: No Reported Reaction Past Psychological History: Anxiety, Bipolar, Schizoaffective Disorder, Schizophrenia Smoking Status: Current every day smoker Past Alcohol Use History: Rare Past Drug Use History: Marijuana, Methamphetamine - Past Family History Mother Family Medical History: No Reported History Additional Family Medical History / Comment(s): Mother is healthy Father Additional Family Medical History / Comment(s): Pt states father is and she does not know cause of , Sister(s) Additional Family Medical History / Comment(s): Pt's twin sister has schizoa ffective disorder. General Exam - General Exam Comments Initial Comments: GENERAL: Well-appearing, well-nourished and in no acute distress. HEAD: Atraumatic, normocephalic. EYES: Pupils equal round and reactive to light, extraocular movements intact, sclera anicteric, conjunctiva are normal. ENT: Moist mucous membranes. NECK: Normal range of motion, supple without lymphadenopathy or JVD. LUNGS: Breath sounds clear to auscultation bilaterally and equal. No wheezes rales or rhonchi. HEART: Regular rate and rhythm without murmurs, rubs or gallops. ABDOMEN: Soft, nontender, normoactive bowel sounds. No guarding, no rebound. No masses appreciated. Patient has full trunk range of motion. No midline tenderness. Mild lumbar paraspinal tenderness. : Deferred EXTREMITIES: Normal range of motion, no pitting or edema. No clubbing or cyanosis. NEUROLOGICAL: Normal speech, normal gait. PSYCH: Normal mood, normal affect. SKIN: Warm, Dry, normal turgor, no rashes or lesions noted. Limitations: no limitations Course Vital Signs 10/16/19 19:12 Temperature 98 F Pulse Rate 124 H Respiratory 20 Rate Blood Pressure 115/84 O2 Sat by Pulse 98 Oximetry Medical Decision Making - Medical Decision Making Patient is a 39-year-old female presenting with acute on chronic low back pain. No falls or trauma. Exam reveals low back paraspinal tenderness. Full trunk range of motion. No red flag symptoms. X-rays the lumbar spine show no acute process. Patient was given Toradol for pain. Discussed these findings with the patient and this is most likely a muscle strain. She can use heat to the area as well as Tylenol Motrin for pain relief. She'll follow up with PCP if symptoms persist. She is stable for discharge in agreement with this plan of care. Return parameters were discussed with the patient she verbalized understanding. Disposition Clinical Impression: Strain of lumbar region, Chronic back pain Disposition: HOME SELF-CARE Condition: Stable Instructions (If sedation given, give patient instructions): Acute Low Back Pain (ED) Additional Instructions: Please return to the Emergency Department if symptoms worsen or any other concerns. Use heat to the area as well as Tylenol Motrin for pain relief. Follow-up with PCP if symptoms persist. Is patient prescribed a controlled substance at d/c from ED?: No Referrals: [facility] [Primary Care Provider] - 1-2 days
== END 2019-10-16 21:58 | disposition home or self-care (01) ==
LOC: EC 18:51
DX: S39.012A Strain of muscle, fascia and tendon of lower back, initial encounter (principal); G89.29 Other chronic pain; F17.200 Nicotine dependence, unspecified, uncomplicated; F41.9 Anxiety disorder, unspecified; F25.0 Schizoaffective disorder, bipolar type; Z79.899 Other long term (current) drug therapy; Z88.1 Allergy status to other antibiotic agents; Z91.048 Other nonmedicinal substance allergy status; Z85.41 Personal history of malignant neoplasm of cervix uteri; Z98.890 Other specified postprocedural states; X58.XXXA Exposure to other specified factors, initial encounter
CPT/HCPCS: 72100; 96372; 99283; J1885

== ENCOUNTER 2019-10-22 23:06 | Emergency (ER) | payer MEDICARE, OTHER ==
[2019-10-22 23:15] VITALS: BP 131/80; PULSE 86; RESP 16; TEMP 99.5
[2019-10-22] MEDS ORDERED: KETOROLAC 30 MG/ML 1 ML VIAL IM STA (23:31)
[2019-10-22] MEDS ORDERED: ACET/COD 300 MG/30 MG STARTER PACK 6 TAB BTL PO STA (23:31)
[2019-10-22] MEDS ORDERED: PENICILLIN VK 500MG STARTER 4 TAB BTL PO STA (23:31)
--- NOTE | 2019-10-22 23:33 | ED ---
General Adult HPI - General Chief complaint: ENT Stated complaint: ENT Time Seen by Provider: 10/22/19 23:15 Source: patient Mode of arrival: ambulatory Limitations: no limitations - History of Present Illness Initial comments: 39-year-old female patient presents to the emergency department today for evaluation of left sided dental pain with radiation to the ear. States she's had pain for the last 3 days. States she is having low-grade fevers. Patient denies any drainage or evidence of abscess. Denies any trismus or difficulty swallowing. Denies nausea or vomiting. Patient denies any recent rash, cough, shortness of breath, chest pain, abdominal pain, diarrhea, constipation, back pain, numbness, tingling, dizziness, weakness, hematuria, dysuria, urinary urgency, urinary frequency, headache, visual changes, or any other complaints. - Related Data Home Medications Medication Instructions Recorded Confirmed Fluphenazine Deconoate 25mg/1ml Oil 50 mg IM Q7D 10/02/19 10/03/19 buPROPion XL [Wellbutrin XL] 150 mg PO DAILY 10/02/19 10/03/19 Previous Rx's Medication Instructions Recorded Gabapentin [Neurontin] 400 mg PO DAILY #30 cap 10/10/19 Melatonin 5 mg PO HS PRN #30 tablet 10/10/19 Nicotine 14Mg/24Hr Patch [Habitrol] 1 patch TRANSDERM DAILY patch 10/10/19 lamoTRIgine [LaMICtal] 25 mg PO BID #60 tab 10/10/19 Penicillin V Potassium [Pen Vee K] 500 mg PO Q6H #40 tablet 10/22/19 Allergies Allergy/AdvReac Type Severity Reaction Status Date / Time sulfamethoxazole Allergy Swelling Verified 10/22/19 23:16 [From Bactrim] trimethoprim [From Bactrim] Allergy Swelling Verified 10/22/19 23:16 cottonwood Allergy Swelling Uncoded 10/22/19 23:16 Review of Systems ROS Statement: Those systems with pertinent positive or pertinent negative responses have been documented in the HPI. ROS Other: All systems not noted in ROS Statement are negative. Past Medical History Past Medical History: Cancer, Pneumonia Additional Past Medical History / Comment(s): Frequent abcess on external vagina, UTI, cervical cancer with leap surgery History of Any Multi-Drug Resistant Organisms: None Reported Past Surgical History: Appendectomy, Uterine Ablation Additional Past Surgical History / Comment(s): LEAP about 8yr ago, Past Anesthesia/Blood Transfusion Reactions: No Reported Reaction Past Psychological History: Anxiety, Bipolar, Schizoaffective Disorder, Schi zophrenia Smoking Status: Current every day smoker Past Alcohol Use History: Rare Past Drug Use History: Marijuana, Methamphetamine - Past Family History Mother Family Medical History: No Reported History Additional Family Medical History / Comment(s): Mother is healthy Father Additional Family Medical History / Comment(s): Pt states father is and she does not know cause of , Sister(s) Additional Family Medical History / Comment(s): Pt's twin sister has schizoaffective disorder. General Exam Limitations: no limitations General appearance: alert, in no apparent distress, other (This is a well- developed, well-nourished adult female patient in no acute distress. Vital signs upon presentation are temperature 99.5F, pulse 86, respirations 16, blood pressure 131/80, pulse ox 99% on room air.) Eye exam: Present: normal appearance, PERRL, EOMI. Absent: scleral icterus, c onjunctival injection, periorbital swelling ENT exam: Present: normal oropharynx, mucous membranes moist, other (There is upper gingival erythema and hyperplasia, poor dentition. No broken teeth noted. No evidence of drainable abscess. ) Respiratory exam: Present: normal lung sounds bilaterally. Absent: respiratory distress, wheezes, rales, rhonchi, stridor Cardiovascular Exam: Present: regular rate, normal rhythm, normal heart sounds. Absent: systolic murmur, diastolic murmur, rubs, gallop, clicks Neurological exam: Present: alert, oriented X3, CN II-XII intact Psychiatric exam: Present: normal affect, normal mood Skin exam: Present: warm, dry, intact, normal color. Absent: rash Course Vital Signs 10/22/19 23:12 Temperature 99.5 F Pulse Rate 86 Respiratory 16 Rate Blood Pressure 131/80 O2 Sat by Pulse 99 Oximetry Medical Decision Making - Medical Decision Making 39-year-old female patient in with left upper dental pain. No evidence of drainable abscess. Temperature 99.5. There is evidence for gingival erythema and hyperplasia. We'll treat with Pen-Vee K she'll be given IM dose of Toradol and a starter pack for Tylenol with codeine. She is instructed to follow-up with dentistry as soon as possible. Instructed to follow-up with her primary care physician for recheck in 1-2 days. Return parameters were discussed in detail. They verbalize understanding and agree with this plan. Disposition Clinical Impression: Pain, dental Disposition: HOME SELF-CARE Condition: Good Instructions (If sedation given, give patient instructions): Toothache (ED) Additional Instructions: Complete antibiotic prescription in full. Take pain medication as directed. Follow-up with your primary care physician for recheck in 1-2 days. Follow-up with dentistry as soon as possible. Return to the emergency department immediately for any new, worsening, or concerning symptoms. Prescriptions: Penicillin V Potassium [Pen Vee K] 500 mg PO Q6H #40 tablet Is patient prescribed a controlled substance at d/c from ED?: No Referrals: [facility] [Primary Care Provider] - 1-2 days Time of Disposition: 23:33
== END 2019-10-22 23:42 | disposition home or self-care (01) ==
LOC: EC 23:06
DX: K08.89 Other specified disorders of teeth and supporting structures (principal); F41.9 Anxiety disorder, unspecified; F31.9 Bipolar disorder, unspecified; F20.9 Schizophrenia, unspecified; F17.200 Nicotine dependence, unspecified, uncomplicated; Z79.899 Other long term (current) drug therapy; Z88.1 Allergy status to other antibiotic agents; Z88.2 Allergy status to sulfonamides; Z91.048 Other nonmedicinal substance allergy status; Z85.41 Personal history of malignant neoplasm of cervix uteri
CPT/HCPCS: 99282; 96372; J1885

== ENCOUNTER 2019-11-07 15:20 | Emergency (ER) | payer MEDICARE, OTHER ==
[2019-11-07 15:24] VITALS: BP 135/75; PULSE 89; RESP 20; TEMP 99
[2019-11-07] MEDS ORDERED: KETOROLAC 60 MG/2 ML VIAL IM STA (15:33)
--- NOTE | 2019-11-07 15:38 | ED ---
ENT HPI - General Chief complaint: Dental/Oral Stated complaint: dental pain Time Seen by Provider: 11/07/19 15:25 Source: patient Mode of arrival: ambulatory Limitations: no limitations - History of Present Illness Initial comments: Patient is a 39-year-old female presenting to emergency Department complaining of left-sided dental pain 2 days. Patient states she called her dentist and they recommended her coming into the ER because she is having throat pain as well. Patient denies recent fever, chills, cough. She states she is having mild left-sided throat pain and ear pressure. She states she has had problems with her teeth in the past. She denies any drainage. She has no other complaints at this time. Upon arrival to the ER, her vital signs are stable. - Related Data Home Medications Medication Instructions Recorded Confirmed Fluphenazine Deconoate 25mg/1ml Oil 50 mg IM Q7D 10/02/19 10/03/19 buPROPion XL [Wellbutrin XL] 150 mg PO DAILY 10/02/19 10/03/19 Previous Rx's Medication Instructions Recorded Gabapentin [Neurontin] 400 mg PO DAILY #30 cap 10/10/19 Melatonin 5 mg PO HS PRN #30 tablet 10/10/19 Nicotine 14Mg/24Hr Patch [Habitrol] 1 patch TRANSDERM DAILY patch 10/10/19 lamoTRIgine [LaMICtal] 25 mg PO BID #60 tab 10/10/19 Penicillin V Potassium [Pen Vee K] 500 mg PO Q6H #40 tablet 10/22/19 Penicillin V Potassium [Pen Vee K] 500 mg PO QID 7 Days #28 tablet 11/07/19 Allergies Allergy/AdvReac Type Severity Reaction Status Date / Time sulfamethoxazole Allergy Swelling Verified 11/07/19 15:24 [From Bactrim] trimethoprim [From Bactrim] Allergy Swelling Verified 11/07/19 15:24 cottonwood Allergy Swelling Uncoded 11/07/19 15:24 Review of Systems ROS Statement: Those systems with pertinent positive or pertinent negative responses have been documented in the HPI. ROS Other: All systems not noted in ROS Statement are negative. Past Medical History Past Medical History: Cancer, Pneumonia Additional Past Medical History / Comment(s): Frequent abcess on external vagina, UTI, cervical cancer with leap surgery History of Any Multi-Drug Resistant Organisms: None Reported Past Surgical History: Appendectomy, Uterine Ablation Additional Past Surgical History / Comment(s): LEAP about 8yr ago, Past Anesthesia/Blood Transfusion Reactions: No Reported Reaction Past Psychological History: Anxiety, Bipolar, Schizoaffective Disorder, Schizophrenia Smoking Status: Current every day smoker Past Alcohol Use History: Rare Past Drug Use History: Marijuana, Methamphetamine - Past Family History Mother Family Medical History: No Reported History Additional Family Medical History / Comment(s): Mother is healthy Father Additional Family Medical History / Comment(s): Pt states father is and she does not know cause of , Sister(s) Additional Family Medical History / Comment(s): Pt's twin sister has schizoaffective disorder. General Exam - General Exam Comments Initial Comments: GENERAL: Well-appearing, well-nourished and in no acute distress. HEAD: Atraumatic, normocephalic. EYES: Pupils equal round and reactive to light, extraocular movements intact, sclera anicteric, conjunctiva are normal. ENT: TMs normal, nares patent, oropharynx clear without exudates. Moist mucous membranes. Patient has multiple dental caries, no visible dental abscess seen. Pain with palpation of the left lower gumline. Mild erythema to the area. NECK: Normal range of motion, supple without lymphadenopathy or JVD. LUNGS: Breath sounds clear to auscultation bilaterally and equal. No wheezes rales or rhonchi. HEART: Regular rate and rhythm without murmurs, rubs or gallops. ABDOMEN: Soft, nontender, normoactive bowel sounds. No guarding, no rebound. No masses appreciated. : Deferred EXTREMITIES: Normal range of motion, no pitting or edema. No clubbing or cyanosis. NEUROLOGICAL: Normal speech, normal gait. PSYCH: Normal mood, normal affect. SKIN: Warm, Dry, normal turgor, no rashes or lesions noted. Limitations: no limitations Course Vital Signs 11/07/19 15:22 Temperature 99.0 F Pulse Rate 89 Respiratory 20 Rate Blood Pressure 135/75 O2 Sat by Pulse 99 Oximetry Medical Decision Making - Medical Decision Making Patient is a 31-year-old female presenting with left-sided lower dental pain 2 days. Her vitals are stable, afebrile. On exam, there is no visible drainable abscess. Throat looks clear, ears are normal. Given her history and tenderness of the gumline, patient will be started on penicillin. She'll be given Toradol in the emergency department and will follow-up with her dentist. She is in agreement with this plan of care. Return parameters were discussed with the patient and she verbalized understanding. Disposition Clinical Impression: Pain, dental, Dental caries Disposition: HOME SELF-CARE Condition: Stable Instructions (If sedation given, give patient instructions): Dental Abscess (ED) Additional Instructions: Please return to the Emergency Department if symptoms worsen or any other concerns. Follow-up with dentist RAMONA. Continue with Tylenol and/or Motrin for discomfort. Prescriptions: Penicillin V Potassium [Pen Vee K] 500 mg PO QID 7 Days #28 tablet Is patient prescribed a controlled substance at d/c from ED?: No Referrals: [facility] [Primary Care Provider] - 1-2 days
== END 2019-11-07 16:05 | disposition home or self-care (01) ==
LOC: EC 15:20
DX: K02.9 Dental caries, unspecified (principal); R07.0 Pain in throat; H93.8X2 Other specified disorders of left ear; F41.9 Anxiety disorder, unspecified; F31.9 Bipolar disorder, unspecified; F20.9 Schizophrenia, unspecified; F17.200 Nicotine dependence, unspecified, uncomplicated; Z88.2 Allergy status to sulfonamides; Z91.048 Other nonmedicinal substance allergy status; Z79.899 Other long term (current) drug therapy; Z85.41 Personal history of malignant neoplasm of cervix uteri; Z98.890 Other specified postprocedural states
CPT/HCPCS: 99282; 96372; J1885

== ENCOUNTER 2019-12-21 20:36 | Inpatient (IN) | payer MEDICARE, MEDICAID ==
--- NOTE | 2019-12-21 21:10 | ED ---
Psych HPI - General Chief Complaint: Psychiatric Symptoms Stated Complaint: mental health Time Seen by Provider: 12/21/19 20:36 Source: patient, EMS, RN notes reviewed Mode of arrival: EMS - History of Present Illness Initial Comments: This is a 31-year-old female history depression also schizoaffective disorder history of recent methamphetamine and marijuana use with the last use 3 days ago who states she's feeling depressed and suicidal for hearing voices and seeing things. She states she would take pills that she had some she doesn't have any. She denies any alcohol use denies fevers chills nausea vomiting sweats or other symptoms at this time. She is a cigarette smoker also. MD Complaint: suicidal ideation, feels depressed, other - Related Data Home Medications Medication Instructions Recorded Confirmed buPROPion XL [Wellbutrin XL] 150 mg PO DAILY 10/02/19 12/21/19 Albuterol Sulfate [Ventolin HFA] 2 puff INHALATION RT-Q4H PRN 12/21/19 12/21/19 Gabapentin [Neurontin] 400 mg PO BID 12/21/19 12/21/19 fluPHENAZine DECANOATE [Prolixin 50 mg IM Q14D 12/21/19 12/21/19 Decanoate] lamoTRIgine [LaMICtal] 200 mg PO DAILY 12/21/19 12/21/19 Allergies Allergy/AdvReac Type Severity Reaction Status Date / Time sulfamethoxazole Allergy Swelling Verified 12/21/19 21:13 [From Bactrim] trimethoprim [From Bactrim] Allergy Swelling Verified 12/21/19 21:13 cottonwood Allergy Swelling Uncoded 12/21/19 21:13 Review of Systems ROS Statement: Those systems with pertinent positive or pertinent negative responses have been documented in the HPI. ROS Other: All systems not noted in ROS Statement are negative. Past Medical History Past Medical History: Cancer, Pneumonia Additional Past Medical History / Comment(s): Frequent abcess on external vagina, UTI, cervical cancer with leap surgery History of Any Multi-Drug Resistant Organisms: None Reported Past Surgical History: Appendectomy, Uterine Ablation Additional Past Surgical History / Comment(s): LEAP about 8yr ago, Past Anesthesia/Blood Transfusion Reactions: No Reported Reaction Past Psychological History: Anxiety, Bipolar, Schizoaffective Disorder, Schizophrenia Smoking Status: Current every day smoker Past Alcohol Use History: Rare Past Drug Use History: Marijuana, Methamphetamine - Past Family History Mother Family Medical History: No Reported History Additional Family Medical History / Comment(s): Mother is healthy Father Additional Family Medical History / Comment(s): Pt states father is and she does not know cause of , Sister(s) Additional Family Medical History / Comment(s): Pt's twin sister has schizoaffective disorder. General Exam - General Exam Comments Initial Comments: This a well-developed well-nourished awake alert oriented x 3 female Limitations: no limitations General appearance: alert, in no apparent distress Head exam: Present: atraumatic, normocephalic, normal inspection Eye exam: Present: normal appearance, PERRL, EOMI. Absent: scleral icterus, conjunctival injection, periorbital swelling ENT exam: Present: normal exam, mucous membranes moist Neck exam: Present: normal inspection. Absent: tenderness, meningismus, lymphadenopathy Respiratory exam: Present: normal lung sounds bilaterally. Absent: respiratory distress, wheezes, rales, rhonchi, stridor Cardiovascular Exam: Present: regular rate, normal rhythm, normal heart sounds. Absent: systolic murmur, diastolic murmur, rubs, gallop, clicks GI/Abdominal exam: Present: soft, normal bowel sounds. Absent: distended, tenderness, guarding, rebound, rigid Extremities exam: Present: normal inspection, full ROM, normal capillary refill. Absent: tenderness, pedal edema, joint swelling, calf tenderness Back exam: Present: normal inspection Neurological exam: Present: alert, oriented X3, CN II-XII intact Psychiatric exam: Present: depressed, suicidal ideation Skin exam: Present: warm, dry, intact, normal color. Absent: rash Course Vital Signs 12/21/19 20:49 Temperature 98.2 F Pulse Rate 96 Respiratory 18 Rate Blood Pressure 115/65 O2 Sat by Pulse 99 Oximetry - Reevaluation(s) Reevaluation #1: 12/21/19 22:46 The patient is resting comfortably. Patient's bed test is negative for the patient will not be able to be evaluated as psychiatric service has insufficiency. Patient will remain in emergency department. A petition was filled out by nursing did review this I did fill out a clinical certification. The patient's case and care will be endorsed to Dr. Cullen at our shift change. Medical Decision Making - Lab Data Lab Results 12/21/19 Range/Units 20:54 Urine Opiates Screen Not Detected (NotDetected) Ur Oxycodone Screen Not Detected (NotDetected) Urine Methadone Screen Not Detected (NotDetected) Ur Propoxyphene Screen Not Detected (NotDetected) Ur Barbiturates Screen Not Detected (NotDetected) U Tricyclic Antidepress Not Detected (NotDetected) Ur Phencyclidine Scrn Not Detected (NotDetected) Ur Amphetamines Screen Detected H (NotDetected) U Methamphetamines Scrn Detected H (NotDetected) U Benzodiazepines Scrn Not Detected (NotDetected) Urine Cocaine Screen Not Detected (NotDetected) U Marijuana (THC) Screen Detected H (NotDetected) Disposition Referrals: [facility] [Primary Care Provider] - 1-2 days
[2019-12-21 21:24] LABS: Amphetamine Screen,Urine Detected (NotDetected); Barbiturate Screen,Urine Not Detected (NotDetected); Benzodiazepines Screen,Urine Not Detected (NotDetected); Cocaine Screen,Urine Not Detected (NotDetected); Methadone Screen, Urine Not Detected (NotDetected); Opiate Screen,Urine Not Detected (NotDetected); Oxycodone Screen, Urine Not Detected (NotDetected); Phencyclidine Screen,Urine Not Detected (NotDetected); Tricyclic Antidepressant,Urine Not Detected (NotDetected); Urn Cannabinoid Scrn Detected (NotDetected)
[2019-12-21] MEDS ORDERED: ACETAMINOPHEN TAB 325 MG TAB PO STA (23:48)
[2019-12-22] MEDS ORDERED: LORazepam 1 MG TAB PO STA (00:10)
[2019-12-22] MEDS ORDERED: MAGNESIUM HYDROXIDE 2,400 MG/10 ML CUP PO PRN (08:49)
[2019-12-22] MEDS ORDERED: ALBUTEROL INHALER 60 PUFF/8 GM INHALER (MHU) INHALATION PRN (08:51)
[2019-12-22] MEDS: lamoTRIgine 100 MG TAB PO SCH (10:30)
[2019-12-22] MEDS: GABAPENTIN 400 MG CAP PO SCH ×2 (10:30→20:17)
[2019-12-22] MEDS: NICOTINE 21MG/24HR PATCH TRANSDERM SCH (10:31)
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
[2019-12-22] MEDS: LORazepam 1 MG TAB PO PRN ×2 (12:13→20:17)
--- NOTE | 2019-12-22 18:25 | P.MDCNMH ---
History of Present Illness H&P Date: 12/22/19 Chief Complaint: Medical management 39-year-old female with PMH of schizoaffective disorder and methamphetamine and marijuana use presents the ED for depression and suicidal ideation along with auditory and visual hallucinations. She is admitted to the mental health unit. [facility] physicians has been consulted for medical management of this patient. Patient was seen and examined. Patient states that she is "going crazy". Patient is requesting Haldol. She also reports body aches and myalgias that has been ongoing for the past 2 days. She also reports a 2 day history of frontal headache along with rhinorrhea and nasal congestion. She does report a history of seasonal ALLERGIES. She reports smoking 1-1/2 packs of cigarettes daily. She reports methamphetamine use 3 days ago and occasional marijuana joints. She denies any lower extremity edema, nausea or vomiting, fever or chills, cough, chest pain, shortness of breath, palpitations, changes in urination or appetite. She denies any dizziness, numbness/weakness/tingling of the extremities. She reports a history of constipation, last today. Review of Systems Pertinent positives and negatives as discussed in HPI, a complete review of systems was performed and all other systems are negative. Past Medical History Past Medical History: Cancer, Pneumonia Additional Past Medical History / Comment(s): Frequent abcess on external vagina, UTI, cervical cancer with leap surgery History of Any Multi-Drug Resistant Organisms: None Reported Past Surgical History: Appendectomy, Uterine Ablation Additional Past Surgical History / Comment(s): LEAP about 8yr ago, Past Anesthesia/Blood Transfusion Reactions: No Reported Reaction Past Psychological History: Anxiety, Bipolar, Schizoaffective Disorder, Schizophrenia Smoking Status: Current every day smoker Past Alcohol Use History: Rare Past Drug Use History: Marijuana, Methamphetamine - Past Family History Mother Family Medical History: No Reported History Additional Family Medical History / Comment(s): Mother is healthy Father Additional Family Medical History / Comment(s): Pt states father is and she does not know cause of , Sister(s) Additional Family Medical History / Comment(s): Pt's twin sister has schizoaffective disorder. Medications and Allergies Home Medications Medication Instructions Recorded Confirmed Type buPROPion XL [Wellbutrin XL] 150 mg PO DAILY 10/02/19 12/21/19 History Albuterol Sulfate [Ventolin HFA] 2 puff INHALATION RT-Q4H PRN 12/21/19 12/21/19 History Gabapentin [Neurontin] 400 mg PO BID 12/21/19 12/21/19 History fluPHENAZine DECANOATE [Prolixin 50 mg IM Q14D 12/21/19 12/21/19 History Decanoate] lamoTRIgine [LaMICtal] 200 mg PO DAILY 12/21/19 12/21/19 History Allergies Allergy/AdvReac Type Severity Reaction Status Date / Time sulfamethoxazole Allergy Swelling Verified 12/21/19 21:13 [From Bactrim] trimethoprim [From Bactrim] Allergy Swelling Verified 12/21/19 21:13 cottonwood Allergy Swelling Uncoded 12/21/19 21:13 Physical Exam Vitals: Vital Signs Temp Pulse Pulse Resp BP BP Pulse Ox 12/22/19 17:19 99.1 F 12/22/19 12:39 96.2 F L 12/22/19 12:12 104 H 112/66 12/22/19 10:34 108 H 20 102/57 12/22/19 08:06 97.9 F 84 16 98/56 99 12/21/19 22:58 17 12/21/19 20:49 98.2 F 96 18 115/65 99 General: [non toxic], [no distress], [appears at stated age] Derm: [warm], [dry] Head: [atraumatic], [normocephalic], [symmetric], [fullness in the maxillary and frontal sinuses] Eyes: [EOMI], [no lid lag], [anicteric sclera] Mouth: [no lip lesion], [mucus membranes moist] Cardiovascular: [S1S2 reg], [tachycardia], [positive DP pulse bilateral], Lungs: [Decreased breath sounds bilateral], [no rhonchi, no rales] , [no accessory muscle use] Abdominal: [soft], [ nontender to palpation], [no guarding], [no appreciable organomegaly] Ext: [no gross muscle atrophy], [no edema], [no contractures] Neuro: [no focal neuro deficits] Psych: [Alert], [oriented], [appropriate affect] Cranial Nerve Examination - Cranial Nerves Cranial Nerve II- Optic: Intact Cranial Nerve III- Oculomotor: Intact Cranial Nerve IV- Trochlear: Intact Cranial Nerve V- Trigeminal: Intact Cranial Nerve - Abducens: Intact Cranial Nerve VII- Facial: Intact Cranial Nerve VIII- Auditory: Intact Cranial Nerve IX- Glossopharyngeal: Intact Cranial Nerve X- Vagus: Intact Cranial Nerve XI- Accessory: Intact Cranial Nerve XII- Hypoglossal: Intact Results Labs: Abnormal Lab Results - Last 24 Hours (Table) 12/21/19 Range/Units 20:54 Ur Amphetamines Screen Detected H (NotDetected) U Methamphetamines Scrn Detected H (NotDetected) U Marijuana (THC) Screen Detected H (NotDetected) Assessment and Plan Assessment: Tachycardia ALLERGIC rhinitis and sinusitis Methamphetamine use and marijuana History of cervical cancer Smoker Patient has heart rate of 108. This is likely related to anxiety and methamphetamine use. Plans: Follow EKG Symptoms consistent with ALLERGIC rhinitis. Plans: Trial of Claritin and Flonase. UDS positive for amphetamine, methamphetamine and marijuana. Plans: Ativan as needed. Plans: Patient needs adequate follow up in the outpatient setting. Plans: Nicotine patch. Thank you for this consult. Please call with any additional questions or concerns.
[2019-12-22] MEDS: ZIPRASIDONE 20 MG VIAL IM PRN (20:51)
[2019-12-23 07:18] LABS: Basophils # (A) 0.1 k/uL (0-0.2); Basophils % (A) 1 %; Eosinophils # (A) 0.2 k/uL (0-0.7); Eosinophils % (A) 3 %; HCT 43.3 % (34.0-46.0); HGB 13.9 gm/dL (11.4-16.0); Lymphocytes # (A) 3.2 k/uL (1.0-4.8); Lymphocytes % (A) 47 %; MCHC 32.1 g/dL (31.0-37.0); MCV 93.5 fL (80.0-100.0); Mean Platelet Volume 8.4; Monocytes # (A) 0.5 k/uL (0-1.0); Monocytes % (A) 7 %; Neutrophils # (A) 2.7 k/uL (1.3-7.7); Neutrophils % (A) 40 %; Platelet Count 174 k/uL (150-450); RBC 4.63 m/uL (3.80-5.40); RDW 12.7 % (11.5-15.5); WBC 6.9 k/uL (3.8-10.6)
[2019-12-23 07:21] LABS: ALT 13 U/L (4-34); AST 18 U/L (14-36); African American GFR (CKD) >90 (>60 ml/min/1.73 sqM); Albumin 4.1 g/dL (3.5-5.0); Alkaline Phosphatase 51 U/L (38-126); Anion Gap 8 mmol/L; Blood Urea Nitrogen 15 mg/dL (7-17); Calcium 9.3 mg/dL (8.4-10.2); Carbon Dioxide 23 mmol/L (22-30); Chloride 108 mmol/L (98-107); Cholesterol 199 mg/dL (<200); Glucose 99 mg/dL (74-99); HDL Cholesterol 58 mg/dL (40-60); LDL Cholesterol,Calculated 130 mg/dL (0-99); Non-African American GFR(CKD) >90 (>60 ml/min/1.73 sqM); Potassium 4.7 mmol/L (3.5-5.1); Sodium 139 mmol/L (137-145); Total Bilirubin 0.2 mg/dL (0.2-1.3); Total Protein 7.1 g/dL (6.3-8.2); Triglycerides 55 mg/dL (<150)
[2019-12-23] MEDS: NICOTINE 21MG/24HR PATCH TRANSDERM SCH (08:10)
[2019-12-23] MEDS: FLUTICASONE 50MCG/SPRAY NASAL 16GM EA NOSTRIL SCH (08:10)
[2019-12-23] MEDS: GABAPENTIN 400 MG CAP PO SCH ×3 (08:11→21:25)
[2019-12-23] MEDS: LORATADINE 10 MG TAB PO SCH (08:11)
[2019-12-23] MEDS: lamoTRIgine 100 MG TAB PO SCH (08:11)
--- NOTE | 2019-12-23 10:55 | P.PN ---
Progress Note - Text Interval history: The patient is found in her room she follows me to an interview room. She indicates her mood is okay she feels tired. She reports that she received a Geodon injection last evening. She felt agitated and was yelling and was experiencing a worsening in the auditory hallucinations. She feels that the injection was effective in that she slept in the voices seem to be quieter at this time. We reviewed her psychotropic medication she requests that the Neurontin be increased we discussed that further. Staff reports she slept 7 hours. Appetite stable. Mental status exam: The patient has a disheveled appearance hygiene and fair she is dressed in her own clothing eye contact is appropriate speech is fluent spontaneous nonpressured she demonstrates no tangential thinking loose associations or flight of ideas. She endorses continued auditory hallucinations that are antagonistic. She is reporting no visual hallucinations. She demonstrates no verbal or physical aggressiveness she demonstrates no involuntary repetitive movements. She continues to have hopelessness thinking she feels safe here in the hospital in terms of suicidal thoughts. No homicidal ideation intent or plan. Plan: The patient will continue on her current psychotropic medication I will titrate the Neurontin to 400 mg 3 times daily. We will continue to monitor her for safety she is encouraged to more fully participate in the milieu. Vital signs reviewed.
[2019-12-23] MEDS: LORazepam 1 MG TAB PO PRN ×2 (10:56→16:48)
[2019-12-23 16:21] LABS: Hemoglobin A1C 5.3 % (4.0-6.0)
[2019-12-23] MEDS: ZIPRASIDONE 20 MG VIAL IM PRN (19:55)
[2019-12-23] MEDS: ACETAMINOPHEN TAB 325 MG TAB PO PRN (21:25)
[2019-12-24] MEDS: GABAPENTIN 400 MG CAP PO SCH ×3 (08:37→21:09)
[2019-12-24] MEDS: FLUTICASONE 50MCG/SPRAY NASAL 16GM EA NOSTRIL SCH (08:37)
[2019-12-24] MEDS: LORATADINE 10 MG TAB PO SCH (08:37)
[2019-12-24] MEDS: lamoTRIgine 100 MG TAB PO SCH (08:37)
[2019-12-24] MEDS: NICOTINE 21MG/24HR PATCH TRANSDERM SCH (08:37)
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
[2019-12-24] MEDS: LORazepam 1 MG TAB PO PRN (15:29)
[2019-12-25] MEDS: FLUTICASONE 50MCG/SPRAY NASAL 16GM EA NOSTRIL SCH (08:13)
[2019-12-25] MEDS: LORazepam 1 MG TAB PO PRN ×2 (08:15→15:44)
[2019-12-25] MEDS: NICOTINE 21MG/24HR PATCH TRANSDERM SCH (08:15)
[2019-12-25] MEDS: LORATADINE 10 MG TAB PO SCH (08:15)
[2019-12-25] MEDS: GABAPENTIN 400 MG CAP PO SCH (08:15)
[2019-12-25] MEDS: lamoTRIgine 100 MG TAB PO SCH (08:15)
--- NOTE | 2019-12-25 11:09 | P.PN ---
Progress Note - Text Interval history: The patient's found in her room she follows me to an interview room. She indicates that she feels a little better today. She is hearing voices but they're more supportive. Last evening she was hearing antagonistic voices still. We initiated the oral dose of Prolixin last evening and she thinks that provided some benefit. She feels that the Neurontin is helpful for stabilizing mood and asked that the dose be increased. She has not been attending morning groups but states that she will go to the afternoon groups appetite is been stable staff report she slept 6 hours. Mental status exam: The patient is alert she is dressed in her own clothing hygiene grooming impaired. Eye contact appropriate she seated in the chair with her legs crossed speech is fluent more spontaneous nonpressured she is demonstrating no tangential thinking hallucinations or flight of ideas. She is endorsing continued auditory hallucinations they are noncommanding. She reports no visual hallucinations. She is endorsing no specific delusions. Affect ranges from blunted to smiling during the course of the session. She demonst rates no verbal or physical aggressiveness she demonstrates no involuntary repetitive movements. Plan: The patient will continue on her current psychotropic medications. We will further evaluate the benefit of the additional oral Prolixin. We will continue to evaluate her acute safety risk and consistency of improvement. Vital signs reviewed she is encouraged to more fully participate in the milieu.
[2019-12-25] MEDS: GABAPENTIN 300 MG CAP PO SCH ×2 (15:44→20:56)
[2019-12-25] MEDS: ACETAMINOPHEN TAB 325 MG TAB PO PRN (20:56)
[2019-12-26] MEDS: GABAPENTIN 300 MG CAP PO SCH ×3 (08:29→21:29)
[2019-12-26] MEDS: NICOTINE 21MG/24HR PATCH TRANSDERM SCH (08:29)
[2019-12-26] MEDS: FLUTICASONE 50MCG/SPRAY NASAL 16GM EA NOSTRIL SCH (08:29)
[2019-12-26] MEDS: LORATADINE 10 MG TAB PO SCH (08:30)
[2019-12-26] MEDS: lamoTRIgine 100 MG TAB PO SCH (08:30)
--- NOTE | 2019-12-26 11:22 | P.PN ---
Progress Note - Text Interval history: The patient is found in her room she follows me to an interview room. She indicates that there is some mild improvement from yesterday. She does continue to hear voices they are becoming more supportive. She indicates there are still some that are antagonistic. This seems to happen mostly in the evening. She does feel that the addition of the oral Prolixin has been helpful. Staff report no behavioral disturbances. She has been able to adequately eat sleep is adequate the evening. She has no questions or concerns regarding medication. Mental status exam: The patient is alert she has a disheveled appearance hygiene is fair eye contact is intermittent. She states that she feels things are improving in that the voices are becoming more pleasant and less frequent. She is still troubled at times when they are antagonistic or derogatory. She reports feeling safe in the hospital she indicates having no thoughts of harming others. Insight and judgment slowly improving she demonstrates no verbal or physical aggressiveness no involuntary repetitive movements. Affect is constricted to blunted. Plan: The patient will continue on her current psychotropic medications. She is starting to report some improvement it appears that the addition of the oral Prolixin has been helpful we will give this more time to demonstrate efficacy. If she remains stable over the weekend and demonstrates further improvement of the auditory hallucinations we will consider discharging her on Sunday. Vital signs reviewed. She is encouraged to participate fully in the milieu.
[2019-12-26] MEDS: LORazepam 1 MG TAB PO PRN ×2 (12:41→18:46)
[2019-12-26] MEDS: ACETAMINOPHEN TAB 325 MG TAB PO PRN (12:45)
[2019-12-27] MEDS: NICOTINE 21MG/24HR PATCH TRANSDERM SCH (08:42)
[2019-12-27] MEDS: LORazepam 1 MG TAB PO PRN ×3 (08:42→23:06)
[2019-12-27] MEDS: lamoTRIgine 100 MG TAB PO SCH (08:42)
[2019-12-27] MEDS: GABAPENTIN 300 MG CAP PO SCH ×3 (08:42→22:30)
[2019-12-27] MEDS: FLUTICASONE 50MCG/SPRAY NASAL 16GM EA NOSTRIL SCH (08:42)
[2019-12-27] MEDS: LORATADINE 10 MG TAB PO SCH (08:42)
--- NOTE | 2019-12-27 16:39 | P.PN ---
Progress Note - Text Progress Note Date: 12/27/19 Clinical Problems: Schizoaffective disorder depressed type, marijuana use disorder, rule out methamphetamine use disorder Interim history: Reviewed the medical record and interviewed the patient. She was without current problem or concern. She denied side effects to her current medications. She denied feeling depressed or having thoughts of or suicide. Specifically, she denied that she was hearing a voice telling her to "overdose on pills." Mental status exam: She presented as a casually groomed 39-year-old female who was pleasant on approach. She made eye contact and appeared to attend to the interview. She had a bright facial expression. She showed bili of psychomotor activity. She is not restless or agitated. Her speech was nonspontaneous and had decreased rate and rhythm. Her affect was blunted but stable and appropriate. She denied current suicidal ideation or wishes. She denied feeling hopeless, helpless or worthless. She did not express ideas reference, paranoid ideation or delusions. Her thinking was concrete. Associations appeared goal directed. She would not talk about auditory hallucinations but did not appear to be responding to internal stimuli. Assessment: She is chronically and persistently mentally ill woman who presented with worsening psychotic symptoms in the presence of marijuana and methamphetamine use. Overall clinical condition appears to have improved from admission. Plan: Continue inpatient treatment. Continue safety precautions. Continue Prolixin 2 mg daily, Neurontin 600 mg 3 times a day, labetalol 200 mg daily and Prolixin decanoate 50 mg IM every 14 days. Encourage participation in therapeutic groups and activities. Evaluate clinical status response to treatment daily basis.
[2019-12-28 07:22] VITALS: RESP 16
[2019-12-28] MEDS: NICOTINE 21MG/24HR PATCH TRANSDERM SCH (10:27)
[2019-12-28] MEDS: GABAPENTIN 300 MG CAP PO SCH ×3 (10:27→21:29)
[2019-12-28] MEDS: FLUTICASONE 50MCG/SPRAY NASAL 16GM EA NOSTRIL SCH ×2 (10:27→14:32)
[2019-12-28] MEDS: LORATADINE 10 MG TAB PO SCH (10:28)
[2019-12-28] MEDS: lamoTRIgine 100 MG TAB PO SCH (10:28)
--- NOTE | 2019-12-28 12:31 | P.PN ---
Progress Note - Text Progress Note Date: 12/28/19 Clinical Problems: Schizoaffective disorder depressed type, marijuana use disorder, rule out methamphetamine use disorder Interim history: I reviewed the medical record and interviewed the patient. She denied problems or concerns. She denied side effects to her current medications. She denied feeling depressed or having thoughts of or suicide. Specifically, she denied that she was hearing a voice telling her to "overdose on pills." Mental status exam: She presented as a casually groomed 39-year-old female who was pleasant on approach. She did not make eye contact but appeared to attend to the interview. She had a blunted facial expression. She had not abnormality of psychomotor activity. She is not restless or agitated. Her speech was nonspontaneous and had decreased rate and rhythm. Her affect was blunted but stable and appropriate. She denied current suicidal ideation or wishes. She denied feeling hopeless, helpless or worthless. She did not express ideas reference, paranoid ideation or delusions. Her thinking was concrete. Associations appeared goal directed. She would not talk about auditory hallucinations but did not appear to be responding to internal stimuli. Assessment: She is chronically and persistently mentally ill woman who presented with worsening psychotic symptoms in the presence of marijuana and methamphetamine use. Overall clinical condition appears to have improved from admission. Plan: Continue inpatient treatment. Continue safety precautions. Continue current psychotropic medications including Prolixin decanoate 50mg IM every 14 days. Encourage participation in therapeutic groups and activities. Evaluate clinical status response to treatment daily basis.
[2019-12-28] MEDS: LORazepam 1 MG TAB PO PRN ×2 (14:33→21:29)
[2019-12-29 07:18] VITALS: BP 106/54; PULSE 74; TEMP 97.7
[2019-12-29] MEDS: NICOTINE 21MG/24HR PATCH TRANSDERM SCH (08:19)
[2019-12-29] MEDS: GABAPENTIN 300 MG CAP PO SCH (08:19)
[2019-12-29] MEDS: LORATADINE 10 MG TAB PO SCH (08:19)
[2019-12-29] MEDS: lamoTRIgine 100 MG TAB PO SCH (08:20)
[2019-12-29] MEDS: FLUTICASONE 50MCG/SPRAY NASAL 16GM EA NOSTRIL SCH (08:21)
--- NOTE | 2019-12-29 10:33 | P.DS ---
Providers Date of admission: 12/22/19 08:42 Expected date of discharge: 12/29/19 Attending physician: Jovany Francis Consults: 12/22/19 08:49 Consult Physician Routine Consulting Provider: Irene Physician Consult Reason/Comments: H & P, medical managment Do you want consulting provider notified?: Yes Primary care physician: [facility] - Discharge Diagnosis(es) (1) Schizoaffective disorder Current Visit: No Status: Acute Priority: High (2) Cannabis use disorder, moderate, dependence Current Visit: Yes Status: Acute Priority: Medium (3) Cocaine use disorder, moderate, in sustained remission Current Visit: Yes Status: Acute Priority: Low Hospital Course: Brief summary of admission note: This patient is a 39-year-old single female was admitted to the mental health unit on a petition and clinical certificate for suicidal ideation and acute psychosis. The patient reported she was experiencing auditory hallucinations that were derogatory and antagonistic. She indicated she had thoughts of overdosing on her pills. The patient has an established diagnosis of schizoaffective disorder. She indicates she has been off of her medications for at least a week. She presented with marijuana and methamphetamine in her drug screen. She indicated this is her first use of methamphetamine. For full details please refer to my psychiatric evaluation dated 12/22/2019. Summary of hospital course: The patient was admitted to the mental health unit a second clinical certificate was completed. The patient did sign the deferral agreement. We continued her Lamictal. She was already provided Prolixin decanoate next injection due on 01/01/2020. This was supplemented with Prolixin 2 mg in the evening. She was restarted on Neurontin which was titrated to 600 mg 3 times a day. The patient was seen by internal medicine for routine history and physical exam. 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 She selectively attended groups but mainly stayed to her room. She did participate in meals. During the course of the hospitalization she reported a progressive improvement of symptoms. We discussed her use of substances. She does not wish to participate in inpatient chemical dependency treatment. Mental status exam. The patient is alert she stressor own clothing hygiene grooming adequate. She reports her mood is good affect is brighter and congruent to reported mood. She is reporting no hopelessness thinking no suicidal ideation intent or plan. She is reporting no auditory or visual hallucinations. She specifically denies having any command auditory hallucinations. There is no observed evidence of psychosis during our interaction. She demonstrates no tangential thinking loose associations or flight of ideas. She does not appear hypomanic or manic. Insight and judgment have improved. She is oriented to person place and date. She demonstrates no verbal or physical aggressiveness she demonstrates no involuntary repetitive movements. Impressions 1. Schizoaffective disorder bipolar type depressed, cannabis use disorder moderate, cocaine use disorder in sustained remission, rule out methamphetamine use disorder Plan: The patient will be discharged mental health unit she will return to her own apartment. She will continue on Prolixin decanoate 50 mg every 2 weeks next injection is due 01/01/2020, Prolixin oral 2 mg in the evening. The oral supplementation of Prolixin may be discontinued as an outpatient if it is felt it is no longer needed. Continue Lamictal 200 mg daily Neurontin 600 mg 3 times daily. The patient does not wish to participate in inpatient chemical dependency treatment she does not wish to have any medication specifically prescribed for substance use disorders. She is instructed to abstain from any alcohol marijuana or illicit drugs as these will precipitate symptoms of psychosis and elevate her safety risk. At this time there is no imminent safety risk she is appropriate for transition back to outpatient care. She is instructed to report to the hospital any acute safety concerns. Patient Condition at Discharge: Stable Plan - Discharge Summary New Discharge Prescriptions: New Loratadine [Claritin] 10 mg PO DAILY #30 tab Nicotine 21Mg/24Hr Patch [Habitrol] 1 patch TRANSDERM DAILY #14 patch Gabapentin [Neurontin] 600 mg PO TID #45 tab fluPHENAZine [Prolixin] 2 mg PO DAILY #30 tablet Continue Albuterol Sulfate [Ventolin HFA] 2 puff INHALATION RT-Q4H PRN PRN Reason: Shortness Of Breath lamoTRIgine [LaMICtal] 200 mg PO DAILY #30 tab fluPHENAZine DECANOATE [Prolixin Decanoate] 50 mg IM Q14D #1 ml Discontinued buPROPion XL [Wellbutrin XL] 150 mg PO DAILY Gabapentin [Neurontin] 400 mg PO BID Discharge Medication List Albuterol Sulfate [Ventolin HFA] 2 puff INHALATION RT-Q4H PRN 12/21/19 [History] Gabapentin [Neurontin] 600 mg PO TID #45 tab 12/29/19 [Rx] Loratadine [Claritin] 10 mg PO DAILY #30 tab 12/29/19 [Rx] Nicotine 21Mg/24Hr Patch [Habitrol] 1 patch TRANSDERM DAILY #14 patch 12/29/19 [Rx] fluPHENAZine DECANOATE [Prolixin Decanoate] 50 mg IM Q14D #1 ml 12/29/19 [Rx] fluPHENAZine [Prolixin] 2 mg PO DAILY #30 tablet 12/29/19 [Rx] lamoTRIgine [LaMICtal] 200 mg PO DAILY #30 tab 12/29/19 [Rx] Follow up Appointment(s)/Referral(s): [facility] [Outside] - 12/30/19 10:00 am ([facility] appts are December 29 at 10:00 with case argueta Adri Sosa via phone Appt with Dr. Starks December 31at 10:30 she can go into [facility] and speak to him via video) [facility] [Primary Care Provider] - 1-2 days Activity/Diet/Wound Care/Special Instructions: Activity and diet as tolerated. Avoid the use of street drugs and alcohol. Take all medications as prescribed. When you are in need of refills on your medications please contact your medical provider and/or outpatient psychiatrist to have this done. Please go to scheduled outpatient appointment for aftercare treatment. If symptoms return or become worse, call the crisis line at and/or go to the nearest emergency room for evaluation.
[2019-12-29] MEDS: ACETAMINOPHEN TAB 325 MG TAB PO PRN (11:03)
[2020-01-01] MEDS ORDERED: fluPHENAZine DECANOATE 25 MG/ML 5ML MDV IM SCH (09:00)
== END 2019-12-29 11:35 | disposition home or self-care (01) | DRG 885 ==
LOC: EC 20:36 → 3MHU 12-22 08:42
PROVIDERS: ADMIT Psychiatry & Neurology Psychiatry; ATTEND Psychiatry & Neurology Psychiatry
DX: F25.0 Schizoaffective disorder, bipolar type (principal); R45.851 Suicidal ideations; F25.1 Schizoaffective disorder, depressive type; F17.210 Nicotine dependence, cigarettes, uncomplicated; F15.90 Other stimulant use, unspecified, uncomplicated; F12.20 Cannabis dependence, uncomplicated; F14.21 Cocaine dependence, in remission; Z79.899 Other long term (current) drug therapy; Z88.2 Allergy status to sulfonamides; Z91.09 Other allergy status, other than to drugs and biological substances; Z87.01 Personal history of pneumonia (recurrent); Z90.49 Acquired absence of other specified parts of digestive tract; Z98.890 Other specified postprocedural states; Z87.440 Personal history of urinary (tract) infections; Z81.8 Family history of other mental and behavioral disorders; Z85.41 Personal history of malignant neoplasm of cervix uteri; Z91.19 Patient's noncompliance with other medical treatment and regimen
CPT/HCPCS: 80053; 80061; 80306; 83036; 84443; 85025; 93005

== ENCOUNTER 2020-01-06 18:31 | Emergency (ER) | payer MEDICARE, OTHER ==
[2020-01-06 18:35] VITALS: BP 115/73; PULSE 103; RESP 18; TEMP 98.9
[2020-01-06] MEDS ORDERED: KETOROLAC 60 MG/2 ML VIAL IM STA (18:43)
--- NOTE | 2020-01-06 18:44 | ED ---
ENT HPI - General Chief complaint: Dental/Oral Stated complaint: Dental Pain Time Seen by Provider: 01/06/20 18:36 Source: patient Mode of arrival: ambulatory Limitations: no limitations - History of Present Illness Initial comments: Patient is a 39-year-old female presenting to the emergency Department with complaints of left-sided dental pain 2 days. Patient has been seen in the ER previously for same complaint. She states she did call her dentist today and they said they will call her back with an appointment. She denies any fever, chills, nausea, vomiting. She states she's been taking ibuprofen at home. She has no further complaints at this time. Upon arrival to the ER, patient is afebrile, vitals are stable. - Related Data Home Medications Medication Instructions Recorded Confirmed Albuterol Sulfate [Ventolin HFA] 2 puff INHALATION RT-Q4H PRN 12/21/19 12/21/19 Previous Rx's Medication Instructions Recorded Gabapentin [Neurontin] 600 mg PO TID #45 tab 12/29/19 Loratadine [Claritin] 10 mg PO DAILY #30 tab 12/29/19 Nicotine 21Mg/24Hr Patch [Habitrol] 1 patch TRANSDERM DAILY #14 patch 12/29/19 fluPHENAZine DECANOATE [Prolixin 50 mg IM Q14D #1 ml 12/29/19 Decanoate] fluPHENAZine [Prolixin] 2 mg PO DAILY #30 tablet 12/29/19 lamoTRIgine [LaMICtal] 200 mg PO DAILY #30 tab 12/29/19 Penicillin V Potassium [Pen Vee K] 500 mg PO QID 5 Days #20 tablet 01/06/20 Allergies Allergy/AdvReac Type Severity Reaction Status Date / Time sulfamethoxazole Allergy Swelling Verified 01/06/20 18:35 [From Bactrim] trimethoprim [From Bactrim] Allergy Swelling Verified 01/06/20 18:35 cottonwood Allergy Swelling Uncoded 01/06/20 18:35 Review of Systems ROS Statement: Those systems with pertinent positive or pertinent negative responses have been documented in the HPI. ROS Other: All systems not noted in ROS Statement are negative. Past Medical History Past Medical History: Cancer Additional Past Medical History / Comment(s): cervical cancer with leap surgery History of Any Multi-Drug Resistant Organisms: None Reported Past Surgical History: Appendectomy, Uterine Ablation Additional Past Surgical History / Comment(s): LEAP about 8yr ago, Past Anesthesia/Blood Transfusion Reactions: No Reported Reaction Past Psychological History: Anxiety, Bipolar, Schizoaffective Disorder, Schizophrenia Smoking Status: Current every day smoker Past Alcohol Use History: Rare Past Drug Use History: Marijuana, Methamphetamine - Past Family History Mother Family Medical History: No Reported History Additional Family Medical History / Comment(s): Mother is healthy Father Additional Family Medical History / Comment(s): Pt states father is and she does not know cause of , Sister(s) Additional Family Medical History / Comment(s): Pt's twin sister has schizoaffective disorder. General Exam - General Exam Comments Initial Comments: GENERAL: Well-appearing, well-nourished and in no acute distress. HEAD: Atraumatic, normocephalic. EYES: Pupils equal round and reactive to light, extraocular movements intact, sclera anicteric, conjunctiva are normal. ENT: TMs normal, nares patent, oropharynx clear without exudates. Moist mucous membranes. Patient has full dental caries, no left-sided dental abscess is seen at this time. There is some erythema and gumline changes to the left lower side as well as tooth pain with outpatient. No overlying erythema or swelling of the cheek. NECK: Normal range of motion, supple without lymphadenopathy or JVD. LUNGS: Breath sounds clear to auscultation bilaterally and equal. No wheezes rales or rhonchi. HEART: Regular rate and rhythm without murmurs, rubs or gallops. ABDOMEN: Soft, nontender, normoactive bowel sounds. No guarding, no rebound. No masses appreciated. : Deferred EXTREMITIES: Normal range of motion, no pitting or edema. No clubbing or cyanosis. NEUROLOGICAL: Normal speech, normal gait. PSYCH: Normal mood, normal affect. SKIN: Warm, Dry, normal turgor, no rashes or lesions noted. Limitations: no limitations Course Vital Signs 01/06/20 18:33 Temperature 98.9 F Pulse Rate 103 H Respiratory 18 Rate Blood Pressure 115/73 O2 Sat by Pulse 99 Oximetry Medical Decision Making - Medical Decision Making Patient is 39-year-old female here for dental pain 2 days. Vitals are stable. No dental abscess is seen at this time to drain. There is some erythema and pain in the left lower tooth line. Patient will be started on penicillin for possible abscess and will follow up with her dentist. She will be given Toradol for pain. She is in agreement this plan of care. Return parameters were discussed with the patient she verbalized understanding. Disposition Clinical Impression: Dental caries, Toothache, Dental abscess Disposition: HOME SELF-CARE Condition: Stable Instructions (If sedation given, give patient instructions): Toothache (ED) Additional Instructions: Please return to the Emergency Department if symptoms worsen or any other concerns. Take antibiotic as prescribed. Follow-up with dentist as soon as possible. Prescriptions: Penicillin V Potassium [Pen Vee K] 500 mg PO QID 5 Days #20 tablet Is patient prescribed a controlled substance at d/c from ED?: No Referrals: [facility] [Primary Care Provider] - 1-2 days
== END 2020-01-06 18:50 | disposition home or self-care (01) ==
LOC: EC 18:31
DX: K08.89 Other specified disorders of teeth and supporting structures (principal); K02.9 Dental caries, unspecified; K04.7 Periapical abscess without sinus; F17.200 Nicotine dependence, unspecified, uncomplicated; Z88.2 Allergy status to sulfonamides; Z88.1 Allergy status to other antibiotic agents; Z91.048 Other nonmedicinal substance allergy status; Z85.41 Personal history of malignant neoplasm of cervix uteri; Z98.890 Other specified postprocedural states
CPT/HCPCS: 96372; 99283; J1885

== ENCOUNTER 2020-01-07 02:59 | Emergency (ER) | payer MEDICARE, OTHER ==
[2020-01-07 03:07] VITALS: BP 133/82; RESP 18; TEMP 98.6
[2020-01-07] MEDS ORDERED: traMADol 50 MG STARTER PACK 3 TAB BTL PO STA (03:17)
--- NOTE | 2020-01-07 03:28 | ED ---
ENT HPI - General Chief complaint: Dental/Oral Stated complaint: Dental Pain Time Seen by Provider: 01/07/20 03:00 Source: patient, EMS Mode of arrival: EMS Limitations: no limitations - History of Present Illness Initial comments: Patient is a 39-year-old woman with history of dental pain and dental caries. She presents here for reevaluation. She had been seen earlier in the day for the same, and did start antibiotic this same day. She states she has taken less than 24 hours of the antibiotic. She states that she had taken ibuprofen at home but that did not seem adequate helping the pain. She has not noted swelling or abscess formation. No difficulty with speech or swallowing. She states that she does have appointment which she expects they will extract the tooth within the next couple of days. MD complaint: tooth pain -: days(s) Location: tooth # (21) Severity: moderate Quality: aching Consistency: constant Improves with: none Worsens with: eating Context- Dental: history of dental caries Associated Symptoms: toothache - Related Data Home Medications Medication Instructions Recorded Confirmed Albuterol Sulfate [Ventolin HFA] 2 puff INHALATION RT-Q4H PRN 12/21/19 12/21/19 Previous Rx's Medication Instructions Recorded Gabapentin [Neurontin] 600 mg PO TID #45 tab 12/29/19 Loratadine [Claritin] 10 mg PO DAILY #30 tab 12/29/19 Nicotine 21Mg/24Hr Patch [Habitrol] 1 patch TRANSDERM DAILY #14 patch 12/29/19 fluPHENAZine DECANOATE [Prolixin 50 mg IM Q14D #1 ml 12/29/19 Decanoate] fluPHENAZine [Prolixin] 2 mg PO DAILY #30 tablet 12/29/19 lamoTRIgine [LaMICtal] 200 mg PO DAILY #30 tab 12/29/19 Penicillin V Potassium [Pen Vee K] 500 mg PO QID 5 Days #20 tablet 01/06/20 Allergies Allergy/AdvReac Type Severity Reaction Status Date / Time sulfamethoxazole Allergy Swelling Verified 01/06/20 18:35 [From Bactrim] trimethoprim [From Bactrim] Allergy Swelling Verified 01/06/20 18:35 cottonwood Allergy Swelling Uncoded 01/06/20 18:35 Review of Systems ROS Statement: Those systems with pertinent positive or pertinent negative responses have been documented in the HPI. ROS Other: All systems not noted in ROS Statement are negative. Constitutional: Denies: fever, chills Eyes: Denies: eye pain, vision change ENT: Reports: dental pain Respiratory: Denies: cough, dyspnea Skin: Denies: rash Neurological: Denies: headache Past Medical History Past Medical History: Cancer Additional Past Medical History / Comment(s): cervical cancer with leap surgery History of Any Multi-Drug Resistant Organisms: None Reported Past Surgical History: Appendectomy, Uterine Ablation Additional Past Surgical History / Comment(s): LEAP about 8yr ago, Past Anesthesia/Blood Transfusion Reactions: No Reported Reaction Past Psychological History: Anxiety, Bipolar, Schizoaffective Disorder, Schizophrenia Smoking Status: Current every day smoker Past Alcohol Use History: Rare Past Drug Use History: Marijuana, Methamphetamine - Past Family History Mother Family Medical History: No Reported History Additional Family Medical History / Comment(s): Mother is healthy Father Additional Family Medical History / Comment(s): Pt states father is and she does not know cause of , Sister(s) Additional Family Medical History / Comment(s): Pt's twin sister has schizoaffective disorder. General Exam Limitations: no limitations General appearance: alert, in no apparent distress Head exam: Present: atraumatic, normocephalic Eye exam: Present: normal appearance, PERRL, EOMI. Absent: scleral icterus, conjunctival injection ENT exam: Present: other (Patient has moderate amount of carious teeth. There is no palpable abscess. No sublingual or neck fullness.) Neck exam: Present: normal inspection, full ROM. Absent: tenderness, lymphadenopathy Respiratory exam: Present: normal lung sounds bilaterally. Absent: respiratory distress, wheezes, rales, rhonchi, stridor Course Vital Signs 01/07/20 01/07/20 01/07/20 03:02 03:26 03:36 Temperature 98.6 F Pulse Rate 127 H 118 H 110 H Respiratory 18 18 18 Rate Blood Pressure 133/82 O2 Sat by Pulse 98 97 97 Oximetry Medical Decision Making - Medical Decision Making Patient's 39-year-old woman with dental caries and tooth pain. I did add tramadol to her management. Disposition Clinical Impression: Dental caries, Toothache Disposition: HOME SELF-CARE Condition: Good Instructions (If sedation given, give patient instructions): Toothache (ED) Is patient prescribed a controlled substance at d/c from ED?: No Referrals: [facility] [Primary Care Provider] - 1-2 days
[2020-01-07 03:38] VITALS: PULSE 110
== END 2020-01-07 03:40 | disposition home or self-care (01) ==
LOC: EC 02:59
DX: K02.9 Dental caries, unspecified (principal); F17.200 Nicotine dependence, unspecified, uncomplicated; Z85.41 Personal history of malignant neoplasm of cervix uteri; Z88.2 Allergy status to sulfonamides; Z91.048 Other nonmedicinal substance allergy status
CPT/HCPCS: 99283

== ENCOUNTER 2020-01-09 03:36 | Emergency (ER) | payer MEDICARE, OTHER ==
[2020-01-09 04:28] LABS: Basophils # (A) 0.1 k/uL (0-0.2); Basophils % (A) 0 %; Eosinophils # (A) 0.3 k/uL (0-0.7); Eosinophils % (A) 3 %; HCT 39.9 % (34.0-46.0); HGB 12.9 gm/dL (11.4-16.0); Lymphocytes # (A) 2.4 k/uL (1.0-4.8); Lymphocytes % (A) 23 %; MCH 29.6 pg (25.0-35.0); MCHC 32.4 g/dL (31.0-37.0); MCV 91.2 fL (80.0-100.0); Monocytes # (A) 0.6 k/uL (0-1.0); Monocytes % (A) 5 %; Neutrophils # (A) 7.1 k/uL (1.3-7.7); Neutrophils % (A) 67 %; Platelet Count 105 k/uL (150-450); RBC 4.37 m/uL (3.80-5.40); RDW 12.7 % (11.5-15.5); WBC 10.7 k/uL (3.8-10.6)
[2020-01-09 04:41] LABS: ALT 41 U/L (4-34); AST 31 U/L (14-36); Acetaminophen <10.0 ug/mL; African American GFR (CKD) >90 (>60 ml/min/1.73 sqM); Albumin 3.7 g/dL (3.5-5.0); Alcohol <10 mg/dL; Alkaline Phosphatase 68 U/L (38-126); Anion Gap 7 mmol/L; Blood Urea Nitrogen 9 mg/dL (7-17); Calcium 9.5 mg/dL (8.4-10.2); Carbon Dioxide 21 mmol/L (22-30); Chloride 107 mmol/L (98-107); Glucose 149 mg/dL (74-99); Non-African American GFR(CKD) >90 (>60 ml/min/1.73 sqM); Potassium 3.8 mmol/L (3.5-5.1); Salicylate <1.0 mg/dL; Sodium 135 mmol/L (137-145); Total Bilirubin 0.2 mg/dL (0.2-1.3); Total Protein 6.7 g/dL (6.3-8.2)
--- NOTE | 2020-01-09 05:23 | ED ---
Psych HPI - General Chief Complaint: Psychiatric Symptoms Stated Complaint: Mental Health Time Seen by Provider: 01/09/20 03:53 Source: patient, police Mode of arrival: ambulatory - History of Present Illness Initial Comments: Luisa is a 39yo female very well known to our psychiatric service for repeat admissions, she comes to the ED today in police custody for evaluation of audit ory hallucinations. Patient states these have been going on for a few days, she did receive her injection occasions last week. She does have good follow-up outpatient. She states that tonight she woke up and she could hear voices that she believed were demons and immediate or scared. She didn't have any thoughts of hurting herself or hurting others. Demons were telling her to hurt herself or hurt others. She called the police because she didn't feel safe. - Related Data Home Medications Medication Instructions Recorded Confirmed Albuterol Sulfate [Ventolin HFA] 2 puff INHALATION RT-Q4H PRN 12/21/19 12/21/19 Previous Rx's Medication Instructions Recorded Gabapentin [Neurontin] 600 mg PO TID #45 tab 12/29/19 Loratadine [Claritin] 10 mg PO DAILY #30 tab 12/29/19 Nicotine 21Mg/24Hr Patch [Habitrol] 1 patch TRANSDERM DAILY #14 patch 12/29/19 fluPHENAZine DECANOATE [Prolixin 50 mg IM Q14D #1 ml 12/29/19 Decanoate] fluPHENAZine [Prolixin] 2 mg PO DAILY #30 tablet 12/29/19 lamoTRIgine [LaMICtal] 200 mg PO DAILY #30 tab 12/29/19 Penicillin V Potassium [Pen Vee K] 500 mg PO QID 5 Days #20 tablet 01/06/20 Allergies Allergy/AdvReac Type Severity Reaction Status Date / Time sulfamethoxazole Allergy Swelling Verified 01/09/20 03:45 [From Bactrim] trimethoprim [From Bactrim] Allergy Swelling Verified 01/09/20 03:45 cottonwood Allergy Swelling Uncoded 01/09/20 03:45 Review of Systems ROS Statement: Those systems with pertinent positive or pertinent negative responses have been documented in the HPI. ROS Other: All systems not noted in ROS Statement are negative. Past Medical History Past Medical History: Cancer Additional Past Medical History / Comment(s): cervical cancer with leap surgery History of Any Multi-Drug Resistant Organisms: None Reported Past Surgical History: Appendectomy, Uterine Ablation Additional Past Surgical History / Comment(s): LEAP about 8yr ago, Past Anesthesia/Blood Transfusion Reactions: No Reported Reaction Past Psychological History: Anxiety, Bipolar, Schizoaffective Disorder, Schizophrenia Smoking Status: Current every day smoker Past Alcohol Use History: Rare Past Drug Use History: Marijuana, Methamphetamine - Past Family History Mother Family Medical History: No Reported History Additional Family Medical History / Comment(s): Mother is healthy Father Additional Family Medical History / Comment(s): Pt states father is and she does not know cause of , Sister(s) Additional Family Medical History / Comment(s): Pt's twin sister has schizoaffective disorder. General Exam - General Exam Comments Initial Comments: Physical Exam GENERAL: Patient is well-developed and well-nourished. Patient is nontoxic and well-hydrated and is in no distress. HENT: Normocephalic, Atraumatic. EYES: PERRL, EOMI PULMONARY: Unlabored respirations. CARDIOVASCULAR: RRR Warm and well perfused extremities ABDOMEN: Non-distended SKIN: No rashes or bruising : Deferred NEUROLOGIC: Alert and oriented Normal speech Normal gait MUSCULOSKELETAL: Moving all extremities with no apparent injury PSYCHIATRIC: Auditory hallucinations Limitations: no limitations Course Vital Signs 01/09/20 01/09/20 03:45 05:34 Temperature 98.4 F 98.2 F Pulse Rate 109 H 97 Respiratory 18 17 Rate Blood Pressure 116/80 110/69 O2 Sat by Pulse 98 96 Oximetry Medical Decision Making - Medical Decision Making Patient was seen and evaluated history was obtained from the patient review of medical record and discussion with the EPS as well as placed Patient's family members currently admitted inpatient she cannot be admitted to her forefoot so labs were obtained patient was evaluated by EPS and is essentially at her baseline. Patient states that because of his nighttime she was loosely she got scared and forgot her safety plan which is to call the crisis line to talk through her hallucinations. Patient states nothing else at her home a 30 feel unsafe she can she's doing well she is compliant with her medications and outpatient follow-up and is comfortable plan for discharge home. EPS agrees with this plan. She'll be discharged home for further outpatient management. - Lab Data Result diagrams: 01/09/20 04:16 01/09/20 04:16 Lab Results 01/09/20 01/09/20 Range/Units 04:16 04:16 WBC 10.7 H (3.8-10.6) k/uL RBC 4.37 (3.80-5.40) m/uL Hgb 12.9 (11.4-16.0) gm/dL Hct 39.9 (34.0-46.0) % MCV 91.2 (80.0-100.0) fL MCH 29.6 (25.0-35.0) pg MCHC 32.4 (31.0-37.0) g/dL RDW 12.7 (11.5-15.5) % Plt Count 105 L (150-450) k/uL Neutrophils % 67 % Lymphocytes % 23 % Monocytes % 5 % Eosinophils % 3 % Basophils % 0 % Neutrophils # 7.1 (1.3-7.7) k/uL Lymphocytes # 2.4 (1.0-4.8) k/uL Monocytes # 0.6 (0-1.0) k/uL Eosinophils # 0.3 (0-0.7) k/uL Basophils # 0.1 (0-0.2) k/uL Sodium 135 L (137-145) mmol/L Potassium 3.8 (3.5-5.1) mmol/L Chloride 107 (98-107) mmol/L Carbon Dioxide 21 L (22-30) mmol/L Anion Gap 7 mmol/L BUN 9 (7-17) mg/dL Creatinine 0.68 (0.52-1.04) mg/dL Est GFR (CKD-EPI)AfAm >90 (>60 ml/min/1.73 sqM) Est GFR (CKD-EPI)NonAf >90 (>60 ml/min/1.73 sqM) Glucose 149 H (74-99) mg/dL Calcium 9.5 (8.4-10.2) mg/dL Total Bilirubin 0.2 (0.2-1.3) mg/dL AST 31 (14-36) U/L ALT 41 H (4-34) U/L Alkaline Phosphatase 68 (38-126) U/L Total Protein 6.7 (6.3-8.2) g/dL Albumin 3.7 (3.5-5.0) g/dL Salicylates <1.0 mg/dL Acetaminophen <10.0 ug/mL Serum Alcohol <10 mg/dL Disposition Clinical Impression: Adjustment reaction of adult life Disposition: HOME SELF-CARE Condition: Stable Is patient prescribed a controlled substance at d/c from ED?: No Referrals: [facility] [Primary Care Provider] - 1-2 days
[2020-01-09 05:35] VITALS: BP 110/69; PULSE 97; RESP 17; TEMP 98.2
== END 2020-01-09 05:36 | disposition home or self-care (01) ==
LOC: EC 03:36
DX: F43.20 Adjustment disorder, unspecified (principal); R44.0 Auditory hallucinations; F17.200 Nicotine dependence, unspecified, uncomplicated; Z88.1 Allergy status to other antibiotic agents; Z88.2 Allergy status to sulfonamides; Z91.048 Other nonmedicinal substance allergy status; Z85.41 Personal history of malignant neoplasm of cervix uteri
CPT/HCPCS: 82075; 36415; 80053; 85025; 83520; 99285; G0480 ×2; 80320; 80329

== ENCOUNTER 2020-01-29 21:55 | Emergency (ER) | payer MEDICARE, OTHER ==
--- NOTE | 2020-01-29 23:27 | ED ---
General Adult HPI - General Chief complaint: Recheck/Abnormal Lab/Rx Stated complaint: Mental Health Time Seen by Provider: 01/29/20 23:11 Source: patient, RN notes reviewed Mode of arrival: ambulatory Limitations: no limitations - History of Present Illness Initial comments: 39-year-old female presents for medication refill. Patient states she is out of her gabapentin and Lamictal. States she last took this one week ago. Patient states that she is starting to have some racing thoughts about these medications but otherwise denies any psychiatric complaints. Denies hearing voices. Denies suicidal thoughts or homicidal thoughts. Patient states she will call her doctor tomorrow but is hoping to see a back on her medications. Patient did have some nausea prior to arrival but that has since resolved after receiving Zofran.Patient has no other complaints at this time including shortness of breath, chest pain, abdominal pain, nausea or vomiting, headache, or visual changes. - Related Data Home Medications Medication Instructions Recorded Confirmed Albuterol Sulfate [Ventolin HFA] 2 puff INHALATION RT-Q4H PRN 12/21/19 12/21/19 Previous Rx's Medication Instructions Recorded Gabapentin [Neurontin] 600 mg PO TID #45 tab 12/29/19 Loratadine [Claritin] 10 mg PO DAILY #30 tab 12/29/19 Nicotine 21Mg/24Hr Patch [Habitrol] 1 patch TRANSDERM DAILY #14 patch 12/29/19 fluPHENAZine DECANOATE [Prolixin 50 mg IM Q14D #1 ml 12/29/19 Decanoate] fluPHENAZine [Prolixin] 2 mg PO DAILY #30 tablet 12/29/19 lamoTRIgine [LaMICtal] 200 mg PO DAILY #30 tab 12/29/19 Penicillin V Potassium [Pen Vee K] 500 mg PO QID 5 Days #20 tablet 01/06/20 Gabapentin 600 mg PO TID #9 tab 01/29/20 lamoTRIgine [LaMICtal] 200 mg PO DAILY #7 tab 01/29/20 Allergies Allergy/AdvReac Type Severity Reaction Status Date / Time sulfamethoxazole Allergy Swelling Verified 01/29/20 22:06 [From Bactrim] trimethoprim [From Bactrim] Allergy Swelling Verified 01/29/20 22:06 cottonwood Allergy Swelling Uncoded 01/29/20 22:06 Review of Systems ROS Statement: Those systems with pertinent positive or pertinent negative responses have been documented in the HPI. ROS Other: All systems not noted in ROS Statement are negative. Past Medical History Past Medical History: Cancer Additional Past Medical History / Comment(s): cervical cancer with leap surgery History of Any Multi-Drug Resistant Organisms: None Reported Past Surgical History: Appendectomy, Uterine Ablation Additional Past Surgical History / Comment(s): LEAP about 8yr ago, Past Anesthesia/Blood Transfusion Reactions: No Reported Reaction Past Psychological History: Anxiety, Bipolar, Schizoaffective Disorder, Schizophrenia Smoking Status: Current every day smoker Past Alcohol Use History: None Reported Past Drug Use History: None Reported - Past Family History Mother Family Medical History: No Reported History Additional Family Medical History / Comment(s): Mother is healthy Father Additional Family Medical History / Comment(s): Pt states father is and she does not know cause of , Sister(s) Additional Family Medical History / Comment(s): Pt's twin sister has schizoaffective disorder. General Exam Limitations: no limitations General appearance: alert, in no apparent distress Head exam: Present: atraumatic, normocephalic, normal inspection Eye exam: Present: normal appearance, PERRL, EOMI. Absent: scleral icterus, conjunctival injection, periorbital swelling ENT exam: Present: normal exam, mucous membranes moist Neck exam: Present: normal inspection, full ROM. Absent: tenderness, meningismus, lymphadenopathy Respiratory exam: Present: normal lung sounds bilaterally. Absent: respiratory distress, wheezes, rales, rhonchi, stridor Cardiovascular Exam: Present: regular rate, normal rhythm, normal heart sounds. Absent: systolic murmur, diastolic murmur, rubs, gallop, clicks GI/Abdominal exam: Present: soft, normal bowel sounds. Absent: distended, tenderness, guarding, rebound, rigid Neurological exam: Present: alert, oriented X3 Psychiatric exam: Present: normal affect, normal mood. Absent: homicidal ideation, suicidal ideation Course Vital Signs 01/29/20 22:02 Temperature 98.2 F Pulse Rate 93 Respiratory 18 Rate Blood Pressure 104/71 O2 Sat by Pulse 100 Oximetry Medical Decision Making - Medical Decision Making Patient will be given refills for one week of Lamictal. Patient will be given 3 days of gabapentin as this is a controlled substance. Disposition Clinical Impression: Encounter for medication refill Disposition: HOME SELF-CARE Condition: Good Instructions (If sedation given, give patient instructions): Medicine Refill (ED) Additional Instructions: Please follow up with primary care for further refills. If you have any worsening symptoms return here to the emergency room. Prescriptions: Gabapentin 600 mg PO TID #9 tab lamoTRIgine [LaMICtal] 200 mg PO DAILY #7 tab Is patient prescribed a controlled substance at d/c from ED?: No Referrals: [facility] [Primary Care Provider] - 1-2 days Time of Disposition: 23:22
[2020-01-29] MEDS ORDERED: GABAPENTIN 300 MG CAP PO STA (23:44)
[2020-01-29] MEDS ORDERED: lamoTRIgine 100 MG TAB PO STA (23:44)
[2020-01-29 23:59] VITALS: BP 132/75; PULSE 74; RESP 17; TEMP 98.7
== END 2020-01-29 23:56 | disposition home or self-care (01) ==
LOC: EC 21:55
DX: Z76.0 Encounter for issue of repeat prescription (principal); F17.200 Nicotine dependence, unspecified, uncomplicated; Z79.899 Other long term (current) drug therapy; Z88.1 Allergy status to other antibiotic agents; Z88.2 Allergy status to sulfonamides; Z91.048 Other nonmedicinal substance allergy status; Z85.41 Personal history of malignant neoplasm of cervix uteri
CPT/HCPCS: 99283

== ENCOUNTER 2020-06-06 19:39 | Emergency (ER) | payer MEDICARE, OTHER ==
[2020-06-06 19:47] VITALS: TEMP 99.1
--- NOTE | 2020-06-06 20:04 | ED ---
Psych HPI - General Chief Complaint: Psychiatric Symptoms Stated Complaint: Mental Health Time Seen by Provider: 06/06/20 20:03 Source: patient Mode of arrival: ambulatory - History of Present Illness Initial Comments: 40-year-old female presenting to emergency Department with chief complaint for psychiatric evaluation. Police brought to the ED via police department. Per commander police reserves, patient contacted emergency services after she supposedly complaint of suicidal thoughts with plan. Patient supposedly lives with another person who she has to pay with sex in order to be roommates. Patient states she will want to kill herself using the tablets that she is prescribe such as gabapentin. She denies any homicidal thoughts at this time. No other complaints. - Related Data Home Medications Medication Instructions Recorded Confirmed Albuterol Sulfate [Ventolin HFA] 2 puff INHALATION RT-Q4H PRN 12/21/19 12/21/19 Previous Rx's Medication Instructions Recorded Gabapentin [Neurontin] 600 mg PO TID #45 tab 12/29/19 Loratadine [Claritin] 10 mg PO DAILY #30 tab 12/29/19 Nicotine 21Mg/24Hr Patch [Habitrol] 1 patch TRANSDERM DAILY #14 patch 12/29/19 fluPHENAZine [Prolixin] 2 mg PO DAILY #30 tablet 12/29/19 fluPHENAZine decanoate [Prolixin 50 mg IM Q14D #1 ml 12/29/19 Decanoate] lamoTRIgine [LaMICtal] 200 mg PO DAILY #30 tab 12/29/19 Penicillin V Potassium [Pen Vee K] 500 mg PO QID 5 Days #20 tablet 01/06/20 Gabapentin 600 mg PO TID #9 tab 01/29/20 lamoTRIgine [LaMICtal] 200 mg PO DAILY #7 tab 01/29/20 Allergies Allergy/AdvReac Type Severity Reaction Status Date / Time sulfamethoxazole Allergy Swelling Verified 01/29/20 22:06 [From Bactrim] trimethoprim [From Bactrim] Allergy Swelling Verified 01/29/20 22:06 cottonwood Allergy Swelling Uncoded 01/29/20 22:06 Review of Systems ROS Statement: Those systems with pertinent positive or pertinent negative responses have been documented in the HPI. ROS Other: All systems not noted in ROS Statement are negative. Past Medical History Past Medical History: Cancer Additional Past Medical History / Comment(s): cervical cancer with leap surgery History of Any Multi-Drug Resistant Organisms: None Reported Past Surgical History: Appendectomy, Uterine Ablation Additional Past Surgical History / Comment(s): LEAP about 8yr ago, Past Anesthesia/Blood Transfusion Reactions: No Reported Reaction Past Psychological History: Anxiety, Bipolar, Schizoaffective Disorder, Schizophrenia Smoking Status: Current every day smoker Past Alcohol Use History: None Reported Past Drug Use History: None Reported - Past Family History Mother Family Medical History: No Reported History Additional Family Medical History / Comment(s): Mother is healthy Father Additional Family Medical History / Comment(s): Pt states father is and she does not know cause of , Sister(s) Additional Family Medical History / Comment(s): Pt's twin sister has schizoaffective disorder. General Exam Limitations: no limitations General appearance: alert, in no apparent distress Head exam: Present: atraumatic, normocephalic, normal inspection Eye exam: Present: normal appearance, PERRL, EOMI Pupils: Present: normal accommodation ENT exam: Present: normal exam, normal oropharynx, mucous membranes moist, TM's normal bilaterally, normal external ear exam Neck exam: Present: normal inspection, full ROM. Absent: tenderness Respiratory exam: Present: normal lung sounds bilaterally. Absent: respiratory distress, wheezes, rales Cardiovascular Exam: Present: regular rate, normal rhythm, normal heart sounds Extremities exam: Present: normal inspection, full ROM, normal capillary refill. Absent: tenderness, pedal edema, joint swelling, calf tenderness Back exam: Present: normal inspection, full ROM. Absent: tenderness, CVA tenderness (R), CVA tenderness (L) Neurological exam: Present: alert, oriented X3, CN II-XII intact, normal gait Psychiatric exam: Present: normal affect, normal mood. Absent: depressed, agitated Skin exam: Present: warm, dry, intact, normal color Course Vital Signs 06/06/20 06/06/20 19:42 20:02 Temperature 99.1 F Pulse Rate 121 H 104 H Respiratory 18 16 Rate Blood Pressure 122/87 122/82 O2 Sat by Pulse 98 99 Oximetry Medical Decision Making - Medical Decision Making 40-year-old female presenting to emergency Department for psychiatric evaluation. I spoke with the police officers who brought the patient. Patient does have a women's detention to go to if she is not admitted to the hospital. Physical examination is unremarkable. Patient does report suicidal thoughts with plan only to be admitted into the hospital. EPS did evaluate the patient and it appears she is only reporting the suicidal thoughts to be admitted because she does not want to go to the women's detention. EPS spoke with [facility] and a plan was coordinated for her to be sent to the detention. Patient agreeable. Return parameters discussed. Case discussed with physician. Disposition Clinical Impression: Adjustment reaction of adult life Disposition: HOME SELF-CARE Condition: Stable Instructions (If sedation given, give patient instructions): Help Prevent Suicide (ED) Additional Instructions: Follow up with [facility]. Return to the Emergency Department if symtoms worsen. Is patient prescribed a controlled substance at d/c from ED?: No Referrals: [facility] [Primary Care Provider] - 1-2 days Time of Disposition: 22:20
[2020-06-06 20:05] VITALS: BP 122/82; PULSE 104; RESP 16
== END 2020-06-06 22:35 | disposition home or self-care (01) ==
LOC: EC 19:39
DX: F43.20 Adjustment disorder, unspecified (principal); R45.851 Suicidal ideations; F17.200 Nicotine dependence, unspecified, uncomplicated; Z88.2 Allergy status to sulfonamides; Z88.1 Allergy status to other antibiotic agents; Z91.048 Other nonmedicinal substance allergy status; Z85.41 Personal history of malignant neoplasm of cervix uteri; Z99.89 Dependence on other enabling machines and devices
CPT/HCPCS: 82075; 99285

== ENCOUNTER 2020-06-09 03:22 | Inpatient (IN) | payer MEDICARE, MEDICAID ==
--- NOTE | 2020-06-09 04:06 | ED ---
Psych HPI - General Chief Complaint: Psychiatric Symptoms Stated Complaint: mental health Time Seen by Provider: 06/09/20 03:26 Source: patient, EMS Mode of arrival: EMS - History of Present Illness MD Complaint: suicidal ideation, feels depressed -: hour(s) Associated Psychiatric Symptoms: depression, suicidal ideation History of same: Yes Quality: getting worse Improves With: none Worsens With: none Context: significant life stressor Associated Symptoms: denies other symptoms - Related Data Home Medications Medication Instructions Recorded Confirmed Albuterol Sulfate [Ventolin HFA] 2 puff INHALATION RT-Q4H PRN 12/21/19 06/09/20 lamoTRIgine [LaMICtal] 150 mg PO DAILY 06/09/20 06/09/20 Previous Rx's Medication Instructions Recorded fluPHENAZine decanoate [Prolixin 50 mg IM Q14D #1 ml 12/29/19 Decanoate] Gabapentin 600 mg PO TID #9 tab 01/29/20 Allergies Allergy/AdvReac Type Severity Reaction Status Date / Time sulfamethoxazole Allergy Swelling Verified 06/09/20 07:27 [From Bactrim] trimethoprim [From Bactrim] Allergy Swelling Verified 06/09/20 07:27 cottonwood Allergy Swelling Uncoded 01/29/20 22:06 Review of Systems ROS Statement: Those systems with pertinent positive or pertinent negative responses have been documented in the HPI. ROS Other: All systems not noted in ROS Statement are negative. Constitutional: Denies: fever, chills Respiratory: Denies: cough, dyspnea Cardiovascular: Denies: chest pain, syncope Gastrointestinal: Denies: abdominal pain, vomiting, diarrhea Genitourinary: Denies: dysuria, hematuria Skin: Denies: rash Neurological: Denies: headache Psychiatric: Reports: depression, suicidal thoughts Past Medical History Past Medical History: Cancer Additional Past Medical History / Comment(s): cervical cancer with leap surgery History of Any Multi-Drug Resistant Organisms: None Reported Past Surgical History: Appendectomy, Uterine Ablation Additional Past Surgical History / Comment(s): LEAP about 8yr ago, Past Anesthesia/Blood Transfusion Reactions: No Reported Reaction Past Psychological History: Anxiety, Bipolar, Schizoaffective Disorder, Schizo phrenia Smoking Status: Current every day smoker Past Alcohol Use History: None Reported Past Drug Use History: None Reported - Past Family History Mother Family Medical History: No Reported History Additional Family Medical History / Comment(s): Mother is healthy Father Additional Family Medical History / Comment(s): Pt states father is and she does not know cause of , Sister(s) Additional Family Medical History / Comment(s): Pt's twin sister has schizoaffective disorder. General Exam Limitations: no limitations General appearance: alert, in no apparent distress Head exam: Present: atraumatic, normocephalic Eye exam: Present: normal appearance Respiratory exam: Present: normal lung sounds bilaterally. Absent: respiratory distress, wheezes, rales, rhonchi, stridor Cardiovascular Exam: Present: regular rate, normal rhythm, normal heart sounds. Absent: systolic murmur, diastolic murmur, rubs, gallop GI/Abdominal exam: Present: soft. Absent: distended, tenderness, guarding, rebound Extremities exam: Present: normal inspection, normal capillary refill Neurological exam: Present: alert Psychiatric exam: Present: suicidal ideation. Absent: agitated, anxious, homicidal ideation Skin exam: Present: warm, dry, intact, normal color. Absent: rash Course Vital Signs 06/09/20 03:23 Temperature 98.7 F Pulse Rate 113 H Respiratory 18 Rate Blood Pressure 130/84 O2 Sat by Pulse 98 Oximetry Medical Decision Making - Lab Data Result diagrams: 06/09/20 06:15 06/10/20 10:41 Lab Results 06/09/20 06/09/20 06/09/20 Range/Units 03:38 06:15 06:15 WBC 9.4 (3.8-10.6) k/uL RBC 4.39 (3.80-5.40) m/uL Hgb 13.1 (11.4-16.0) gm/dL Hct 40.8 (34.0-46.0) % MCV 93.0 (80.0-100.0) fL MCH 29.9 (25.0-35.0) pg MCHC 32.1 (31.0-37.0) g/dL RDW 13.0 (11.5-15.5) % Plt Count 214 (150-450) k/uL Neutrophils % 54 % Lymphocytes % 35 % Monocytes % 7 % Eosinophils % 2 % Basophils % 1 % Neutrophils # 5.0 (1.3-7.7) k/uL Lymphocytes # 3.3 (1.0-4.8) k/uL Monocytes # 0.6 (0-1.0) k/uL Eosinophils # 0.1 (0-0.7) k/uL Basophils # 0.1 (0-0.2) k/uL Sodium 136 L (137-145) mmol/L Potassium 4.7 (3.5-5.1) mmol/L Chloride 105 (98-107) mmol/L Carbon Dioxide 22 (22-30) mmol/L Anion Gap 9 mmol/L BUN 14 (7-17) mg/dL Creatinine 0.78 (0.52-1.04) mg/dL Est GFR (CKD-EPI)AfAm >90 (>60 ml/min/1.73 sqM) Est GFR (CKD-EPI)NonAf >90 (>60 ml/min/1.73 sqM) Glucose 128 H (74-99) mg/dL Calcium 9.6 (8.4-10.2) mg/dL Total Bilirubin 0.4 (0.2-1.3) mg/dL AST 23 (14-36) U/L ALT 20 (4-34) U/L Alkaline Phosphatase 53 (38-126) U/L Total Protein 7.3 (6.3-8.2) g/dL Albumin 4.4 (3.5-5.0) g/dL Urine Opiates Screen Not Detected (NotDetected) Ur Oxycodone Screen Not Detected (NotDetected) Urine Methadone Screen Not Detected (NotDetected) Ur Propoxyphene Screen Not Detected (NotDetected) Ur Barbiturates Screen Not Detected (NotDetected) U Tricyclic Antidepress Not Detected (NotDetected) Ur Phencyclidine Scrn Not Detected (NotDetected) Ur Amphetamines Screen Not Detected (NotDetected) U Methamphetamines Scrn Not Detected (NotDetected) U Benzodiazepines Scrn Not Detected (NotDetected) Urine Cocaine Screen Not Detected (NotDetected) U Marijuana (THC) Screen Not Detected (NotDetected) Coronavirus (PCR) (Not Detected) 06/09/20 Range/Units 06:15 WBC (3.8-10.6) k/uL RBC (3.80-5.40) m/uL Hgb (11.4-16.0) gm/dL Hct (34.0-46.0) % MCV (80.0-100.0) fL MCH (25.0-35.0) pg MCHC (31.0-37.0) g/dL RDW (11.5-15.5) % Plt Count (150-450) k/uL Neutrophils % % Lymphocytes % % Monocytes % % Eosinophils % % Basophils % % Neutrophils # (1.3-7.7) k/uL Lymphocytes # (1.0-4.8) k/uL Monocytes # (0-1.0) k/uL Eosinophils # (0-0.7) k/uL Basophils # (0-0.2) k/uL Sodium (137-145) mmol/L Potassium (3.5-5.1) mmol/L Chloride (98-107) mmol/L Carbon Dioxide (22-30) mmol/L Anion Gap mmol/L BUN (7-17) mg/dL Creatinine (0.52-1.04) mg/dL Est GFR (CKD-EPI)AfAm (>60 ml/min/1.73 sqM) Est GFR (CKD-EPI)NonAf (>60 ml/min/1.73 sqM) Glucose (74-99) mg/dL Calcium (8.4-10.2) mg/dL Total Bilirubin (0.2-1.3) mg/dL AST (14-36) U/L ALT (4-34) U/L Alkaline Phosphatase (38-126) U/L Total Protein (6.3-8.2) g/dL Albumin (3.5-5.0) g/dL Urine Opiates Screen (NotDetected) Ur Oxycodone Screen (NotDetected) Urine Methadone Screen (NotDetected) Ur Propoxyphene Screen (NotDetected) Ur Barbiturates Screen (NotDetected) U Tricyclic Antidepress (NotDetected) Ur Phencyclidine Scrn (NotDetected) Ur Amphetamines Screen (NotDetected) U Methamphetamines Scrn (NotDetected) U Benzodiazepines Scrn (NotDetected) Urine Cocaine Screen (NotDetected) U Marijuana (THC) Screen (NotDetected) Coronavirus (PCR) Not Detected (Not Detected) Disposition Clinical Impression: Acute psychosis Disposition: ADMITTED IP TO THIS HOSP Condition: Fair
[2020-06-09 04:14] LABS: Amphetamine Screen,Urine Not Detected (NotDetected); Barbiturate Screen,Urine Not Detected (NotDetected); Benzodiazepines Screen,Urine Not Detected (NotDetected); Cocaine Screen,Urine Not Detected (NotDetected); Methadone Screen, Urine Not Detected (NotDetected); Opiate Screen,Urine Not Detected (NotDetected); Oxycodone Screen, Urine Not Detected (NotDetected); Phencyclidine Screen,Urine Not Detected (NotDetected); Tricyclic Antidepressant,Urine Not Detected (NotDetected); Urn Cannabinoid Scrn Not Detected (NotDetected)
[2020-06-09 06:38] LABS: Basophils # (A) 0.1 k/uL (0-0.2); Basophils % (A) 1 %; Eosinophils # (A) 0.1 k/uL (0-0.7); Eosinophils % (A) 2 %; HCT 40.8 % (34.0-46.0); HGB 13.1 gm/dL (11.4-16.0); Lymphocytes # (A) 3.3 k/uL (1.0-4.8); Lymphocytes % (A) 35 %; MCH 29.9 pg (25.0-35.0); MCHC 32.1 g/dL (31.0-37.0); Mean Platelet Volume 7.9; Monocytes # (A) 0.6 k/uL (0-1.0); Monocytes % (A) 7 %; Neutrophils % (A) 54 %; Platelet Count 214 k/uL (150-450); RBC 4.39 m/uL (3.80-5.40); WBC 9.4 k/uL (3.8-10.6)
[2020-06-09] MEDS ORDERED: ZIPRASIDONE 20 MG VIAL IM STA (06:44)
[2020-06-09 06:49] LABS: ALT 20 U/L (4-34); AST 23 U/L (14-36); African American GFR (CKD) >90 (>60 ml/min/1.73 sqM); Albumin 4.4 g/dL (3.5-5.0); Alkaline Phosphatase 53 U/L (38-126); Anion Gap 9 mmol/L; Blood Urea Nitrogen 14 mg/dL (7-17); Calcium 9.6 mg/dL (8.4-10.2); Carbon Dioxide 22 mmol/L (22-30); Chloride 105 mmol/L (98-107); Glucose 128 mg/dL (74-99); Non-African American GFR(CKD) >90 (>60 ml/min/1.73 sqM); Potassium 4.7 mmol/L (3.5-5.1); Sodium 136 mmol/L (137-145); Total Bilirubin 0.4 mg/dL (0.2-1.3); Total Protein 7.3 g/dL (6.3-8.2)
[2020-06-09] MEDS ORDERED: LORazepam 2 MG/ML INJ IV STA (06:56)
[2020-06-09] MEDS ORDERED: MAG HYDROX/AL HYDROX/SIMETH 30 ML CUP PO PRN (08:49)
[2020-06-09] MEDS ORDERED: MAGNESIUM HYDROXIDE 2,400 MG/10 ML CUP PO PRN (08:49)
[2020-06-09] MEDS: ACETAMINOPHEN TAB 325 MG TAB PO PRN (09:43)
[2020-06-09] MEDS: NICOTINE 21MG/24HR PATCH TRANSDERM SCH (09:43)
[2020-06-09] MEDS: LORazepam 1 MG TAB PO PRN (09:43)
[2020-06-09] MEDS ORDERED: PNEUMOCOCCAL VACC-PNEUMOVAX 23 25 MCG/0.5 ML VIAL IM ONE (10:03)
[2020-06-09] MEDS ORDERED: INFLUENZA VACCINE (6 MOS+) 60 MCG/0.5 ML SYRINGE IM ONE (10:05)
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
[2020-06-09] MEDS ORDERED: lamoTRIgine 25 MG TAB PO SCH (21:00)
--- NOTE | 2020-06-09 22:53 | P.MDCNMH ---
History of Present Illness H&P Date: 06/09/20 Chief Complaint: medical evaluation 40-year-old female presented to the hospital due to depression and suicidal ideation Patient was seen in her room she feels depressed not interested in engaging in any conversation she denies any medical complaints at this time she was tested for Covid when I ask her she denied any respiratory symptoms or any symptoms suggestive of Covid. Review of Systems Pertinent positives as noted in HPI. All other systems were reviewed and are negative Past Medical History Past Medical History: Cancer Additional Past Medical History / Comment(s): cervical cancer with leap surgery History of Any Multi-Drug Resistant Organisms: None Reported Past Surgical History: Appendectomy, Uterine Ablation Additional Past Surgical History / Comment(s): LEAP about 8yr ago, Past Anesthesia/Blood Transfusion Reactions: No Reported Reaction Past Psychological History: Anxiety, Bipolar, Schizoaffective Disorder, Schizophrenia Smoking Status: Current every day smoker Past Alcohol Use History: None Reported Past Drug Use History: None Reported - Past Family History Mother Family Medical History: No Reported History Additional Family Medical History / Comment(s): Mother is healthy Father Additional Family Medical History / Comment(s): Pt states father is and she does not know cause of , Sister(s) Additional Family Medical History / Comment(s): Pt's twin sister has schizoaffective disorder. Medications and Allergies Home Medications Medication Instructions Recorded Confirmed Type Albuterol Sulfate [Ventolin HFA] 2 puff INHALATION RT-Q4H PRN 12/21/19 06/09/20 History fluPHENAZine decanoate [Prolixin 50 mg IM Q14D #1 ml 12/29/19 06/09/20 Rx Decanoate] Gabapentin 600 mg PO TID #9 tab 01/29/20 06/09/20 Rx lamoTRIgine [LaMICtal] 150 mg PO DAILY 06/09/20 06/09/20 History Allergies Allergy/AdvReac Type Severity Reaction Status Date / Time sulfamethoxazole Allergy Swelling Verified 06/09/20 07:27 [From Bactrim] trimethoprim [From Bactrim] Allergy Swelling Verified 06/09/20 07:27 cottonwood Allergy Swelling Uncoded 01/29/20 22:06 Physical Exam Vitals: Vital Signs Temp Pulse Pulse Resp BP BP Pulse Ox 06/09/20 22:23 98.6 F 103 H 16 103/57 99 06/09/20 14:00 99.2 F 06/09/20 09:30 98.2 F 99 18 114/65 97 06/09/20 03:23 98.7 F 113 H 18 130/84 98 Intake and Output 06/09/20 06/09/20 06/09/20 06:59 14:59 22:59 Other: Weight 72.121 kg Constitutional: No acute distress, conversant, pleasant Eyes: Anicteric sclerae, moist conjunctiva, Pupils equal round reactive to light ENMT: NC/AT Oropharynx clear, no erythema, or exudates Neck: Supple, FROM, no masses, or JVD No carotid bruits No thyromegaly Lungs: Clear to auscultation Clear to percussion Normal respiratory effort, no accessory muscle use Cardiovascular: Heart regular in rate and rhythm, No murmurs, gallops, or rubs No peripheral edema Abdominal: Soft Nontender, no guarding, rebound or rigidity Abdomen moving with respiration Normoactive bowel sounds No hepatomegaly, No splenomegaly No palpable mass No abdominal wall hernia noted Skin: Normal temperature, tone, texture, turgor No induration No subcutaneous nodules No rash, lesions No ulcers Extremities: No digital cyanosis No clubbing Pedal pulses intact and symmetrical Radial pulses intact and symmetrical No calf tenderness Psychiatric: Alert and oriented to person, place and time depressed affect poor judgement Neuro Muscles Strength 5/5 in all 4 extremities Sensation to light touch grossly present throughout Cranial nerves II-XII grossly intact No focal sensory deficits Lymphatics: no palpable cervical or supraclavicular , or inguinal lymph nodes Cranial Nerve Examination - Cranial Nerves Cranial Nerve II- Optic: Intact Cranial Nerve III- Oculomotor: Intact Cranial Nerve IV- Trochlear: Intact Cranial Nerve V- Trigeminal: Intact Cranial Nerve - Abducens: Intact Cranial Nerve VII- Facial: Intact Cranial Nerve VIII- Auditory: Intact Cranial Nerve IX- Glossopharyngeal: Intact Cranial Nerve X- Vagus: Intact Cranial Nerve XI- Accessory: Intact Cranial Nerve XII- Hypoglossal: Intact Results CBC & Chem 7: 06/09/20 06:15 06/09/20 06:15 Labs: Abnormal Lab Results - Last 24 Hours (Table) 06/09/20 Range/Units 06:15 Sodium 136 L (137-145) mmol/L Glucose 128 H (74-99) mg/dL Assessment and Plan Assessment: depression , suicidal ideation management per psych Labs reviewed Thank you for allowing us to participate in the care of this patient. We will follow peripherally. Do not hesitate to contact us with questions. Someone can be reached from the [facility] hospitalist group at all hours of the day at [phone].
[2020-06-10] MEDS: NICOTINE 21MG/24HR PATCH TRANSDERM SCH (09:12)
--- NOTE | 2020-06-10 09:52 | P.PN ---
Progress Note - Text Progress Note Date: 06/10/20 Interval History: Patient was seen resting in bed and is currently on droplet precautions as we await her Covid result. Patient is reporting auditory and visual hallucinations. She reports that she was hearing some derogatory voices last night and a little this morning. She states that she is continuing to see the vision of a floating arm that is scaring her. She otherwise is not endorsing any paranoia or delusions. She reports no suicidal or homicidal ideation, inte ntion, and/or plan. She has been adherent with her medications and denies any side effects. She currently reports no significant health issues at this time. Mental Status Exam: General Appearance: Patient appears to be stated age is alert, directable, and cooperative. Behavior: Patient is lying calmly without any agitated behavior. Speech: Patient's speech is fluent and nonpressured. Mood/Affect: Mood is improving mildly, affect is congruent and constricted. Suicidality/Homicidality: Patient denies having any suicidal or homicidal ideation intent or plan. Perceptions: Patient endorses both auditory and visual hallucinations. Though content/process: There is no evidence of any delusional thought content and thought process is linear and goal-directed. Memory and concentration: AOX3, grossly intact for the purposes of this session Judgment and insight: Improving mildly Assessment Schizoaffective disorder, bipolar type Plan: -Patient continues to meet criteria for inpatient psychiatric admission for symptom stabilization and safety. Patient has signed adult voluntary form and medication consent and was placed in patient's chart. -Medications: Lamictal be increased to 50 mg by mouth at bedtime for mood stabilization We will start Prolixin 1 mg by mouth at bedtime or consider seroquel. We will still need to confirm whether pelican decanoate was administered the emergency room. Continue to hold gabapentin. -When necessary Ativan and Geodon for agitation/aggression. -NRT - nicotine patch -SW on board for discharge planning. Encouraged the patient to participate in [facility].
[2020-06-10 11:17] LABS: ALT 16 U/L (4-34); AST 18 U/L (14-36); African American GFR (CKD) >90 (>60 ml/min/1.73 sqM); Albumin 3.8 g/dL (3.5-5.0); Alkaline Phosphatase 49 U/L (38-126); Anion Gap 4 mmol/L; Blood Urea Nitrogen 18 mg/dL (7-17); Carbon Dioxide 27 mmol/L (22-30); Chloride 107 mmol/L (98-107); Cholesterol 161 mg/dL (<200); Glucose 109 mg/dL (74-99); HDL Cholesterol 51 mg/dL (40-60); LDL Cholesterol,Calculated 87 mg/dL (0-99); Non-African American GFR(CKD) >90 (>60 ml/min/1.73 sqM); Potassium 4.6 mmol/L (3.5-5.1); Sodium 138 mmol/L (137-145); Total Bilirubin 0.5 mg/dL (0.2-1.3); Total Protein 6.4 g/dL (6.3-8.2); Triglycerides 116 mg/dL (<150)
[2020-06-10] MEDS: LORazepam 1 MG TAB PO PRN (13:41)
[2020-06-10] MEDS: ACETAMINOPHEN TAB 325 MG TAB PO PRN (13:41)
[2020-06-10 15:46] LABS: Hemoglobin A1C 5.3 % (4.0-6.0)
[2020-06-10] MEDS ORDERED: lamoTRIgine 25 MG TAB PO SCH (21:00)
[2020-06-11] MEDS: LORazepam 1 MG TAB PO PRN ×2 (09:40→18:14)
[2020-06-11] MEDS: NICOTINE 21MG/24HR PATCH TRANSDERM SCH (09:41)
[2020-06-11] MEDS ORDERED: fluPHENAZine DECANOATE 25 MG/ML 5ML MDV IM ONE (09:51)
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
[2020-06-11] MEDS: GABAPENTIN 300 MG CAP PO SCH ×2 (15:49→22:01)
[2020-06-11] MEDS ORDERED: lamoTRIgine 25 MG TAB PO SCH (21:00)
[2020-06-12] MEDS: GABAPENTIN 300 MG CAP PO SCH ×3 (08:56→20:40)
[2020-06-12] MEDS: NICOTINE 21MG/24HR PATCH TRANSDERM SCH (08:56)
[2020-06-12] MEDS: LORazepam 1 MG TAB PO PRN (12:40)
[2020-06-12] MEDS: ACETAMINOPHEN TAB 325 MG TAB PO PRN (13:20)
--- NOTE | 2020-06-12 13:47 | PN ---
PROGRESS NOTE DATE OF SERVICE: 06/12/2020 CHIEF COMPLAINT: The patient was depressed. She had suicide thinking and apparently made an overdose attempt. She has psychotic symptoms. INTERVAL HISTORY: Patient has been doing fair. She had a quiet day yesterday. She comes out on the unit. She will wander about. She will interact some with others. She has not attended groups. She continued to report auditory hallucinations. She received Prolixin Decanoate yesterday. She has not had any problems with the starting dose of 25 mg. She slept well last night. Today she has been up. She continues to be out on the unit. She will interact a little with others. She continues to report having hallucinations and acknowledges that she has fears that do sound as if she is struggling with paranoia. There was a note about her making a comment of hitting someone with a bat. She was quite adamant about the idea that she had not made that kind of statement with any intention. She said that she was either reciting or singing some phrase that had that message, though she says today she has no thoughts of hurting anyone. She signed in AMA stating that she had to be quarantined on the unit and it was stressful for her and she just wants to be home with family. She tolerates psychotropic medications. MENTAL STATUS: Patient sat with a little restlessness. She gave good eye contact, though for the most part seemed to have a staring gaze. She answered questions with brief responses. She did not say a lot. Her thoughts were clear. Her affect was flat. Her mood depressed. She was moderately distressed at times. It was noteworthy she would respond to some humor. She continues to report thought disorder. She voiced no thoughts of harm to self or others. Cognition was clear. ASSESSMENT: I will continue the current diagnosis and treatment plan. The patient has not had problems with the initiation of Prolixin Decanoate which she has been on an outpatient basis through [facility]. Given her continued psychotic symptoms, I will add oral Prolixin 4 mg 3 times a day. She also is on Lamictal 100 mg a day. I reviewed medication issues with the patient including indications, potential side effects which include concerns relating to metabolic and movement disorder. We will focus on stabilization and discharge planning. MMODL / IJN: [id number] /
[2020-06-12] MEDS: lamoTRIgine 100 MG TAB PO SCH (20:40)
[2020-06-12] MEDS: ZIPRASIDONE 20 MG VIAL IM PRN (21:44)
[2020-06-13] MEDS: GABAPENTIN 300 MG CAP PO SCH ×3 (08:29→21:24)
[2020-06-13] MEDS: NICOTINE 21MG/24HR PATCH TRANSDERM SCH (08:29)
[2020-06-13] MEDS: lamoTRIgine 100 MG TAB PO SCH (21:24)
[2020-06-14] MEDS: ZIPRASIDONE 20 MG VIAL IM PRN ×2 (02:38→19:24)
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
[2020-06-14] MEDS: NICOTINE 21MG/24HR PATCH TRANSDERM SCH (10:04)
[2020-06-14] MEDS: GABAPENTIN 300 MG CAP PO SCH ×3 (10:04→22:33)
--- NOTE | 2020-06-14 10:14 | P.PN ---
Progress Note - Text Progress Note Date: 06/14/20 Interval History: Patient was seen resting in bed and was agreeable to speak with speech writer in her room with no one else present. Patient is not reporting any significant symptoms of depression or anxiety at this time. She is not reporting any suicidal or homicidal ideation, intention, and/or plan. She continues to endorse psychotic symptoms. She reports that she was having hallucinations last night which caused her to have poor sleep. This was alleviated with the use of Geodon. She reports she was able to hear the voice of "Dusty Barrera" and that she was frightened for her life. She reported that she almost ran down the hallway decided to cover herself with her bed sheets. She also reports that she was able to see him. She is not reporting any significant side effects of her medications. She has administered Prolixin Decanoate 25 mg IM on Sunday. Mental Status Exam: General Appearance: Patient appears to be stated age is alert, directable, and cooperative. Behavior: Patient is lying in bed calmly without any agitated behavior. Speech: Patient's speech is fluent and nonpressured. Mood/Affect: Mood is improving mildly, affect is congruent and constricted. Suicidality/Homicidality: Patient denies having any suicidal or homicidal ideation intent or plan. Perceptions: Patient endorses both auditory and visual hallucinations. Though content/process: Mild paranoia is evident. Otherwise thought process is linear, logical, and goal-directed. Memory and concentration: AOX3, grossly intact for the purposes of this session Judgment and insight: Improving mildly Assessment Schizoaffective disorder, bipolar type Plan: -Patient continues to meet criteria for inpatient psychiatric admission for symptom stabilization and safety. Patient has signed adult voluntary form and medication consent and was placed in patient's chart. -Medications: Increase lamictal to 125 mg by mouth at bedtime for mood stabilization. Start melatonin 3 mg by mouth at bedtime for insomnia Decrease Prolixin to 4 mg by mouth twice a day. Patient did receive Prolixin Decanoate 25 mg IM on 06/11/2020. Continue gabapentin 600 mg by mouth 3 times a day -When necessary Ativan and Geodon for agitation/aggression. -NRT - nicotine patch -SW on board for discharge planning. Encouraged the patient to participate in milieu.
[2020-06-14] MEDS ORDERED: lamoTRIgine 25 MG TAB PO SCH (21:00)
[2020-06-14] MEDS ORDERED: MELATONIN 3 MG TABLET PO SCH (21:00)
[2020-06-15 07:11] VITALS: BP 87/53; PULSE 76; RESP 18; TEMP 98.5
[2020-06-15] MEDS: GABAPENTIN 300 MG CAP PO SCH (09:55)
[2020-06-15] MEDS: NICOTINE 21MG/24HR PATCH TRANSDERM SCH (09:55)
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
== END 2020-06-15 15:10 | disposition home or self-care (01) | DRG 885 ==
LOC: EC 03:22 → 3MHU 08:47
PROVIDERS: ADMIT Psychiatry & Neurology Psychiatry; ATTEND Psychiatry & Neurology Psychiatry
DX: F25.0 Schizoaffective disorder, bipolar type (principal); F17.200 Nicotine dependence, unspecified, uncomplicated; Z20.828 Contact with and (suspected) exposure to other viral communicable diseases; Z79.899 Other long term (current) drug therapy; Z85.41 Personal history of malignant neoplasm of cervix uteri; Z91.410 Personal history of adult physical and sexual abuse; Z91.5 Personal history of self-harm; Z88.2 Allergy status to sulfonamides; Z91.09 Other allergy status, other than to drugs and biological substances; Z90.49 Acquired absence of other specified parts of digestive tract; Z98.890 Other specified postprocedural states; Z81.8 Family history of other mental and behavioral disorders
CPT/HCPCS: 36415; 80053; 80061; 80306; 82075; 83036; 85025; 96374; 99285